=== PATIENT | female | born 1950 | race African-American/Black ===

== ENCOUNTER 2016-06-08 23:49 | Emergency (ER) | payer OTHER ==
[~2016-06-08] VITALS: Ht 162.6 cm; Wt 65.8 kg
[~2016-06-08 23:49] MED LIST: 1-ME1LIQ PO; ALBU.5I INH; ASPI81TA82 PO; ATOR10 PO; DIOV80TA4 PO; FLUT1SPR9 EACH NARE; LEVA750T9 PO; METF500; MONT10 PO; PRED20 PO; SYMB80AE INH
[2016-06-09 00:01] VITALS: BP 133/85; PULSE 83; RESP 18; TEMP 97.7; O2SAT 98
[2016-06-09] MEDS ORDERED: SYMB80AE INH (01:03)
[2016-06-09] MEDS ORDERED: ALBU.5I NEB (01:03)
[2016-06-09] MEDS ORDERED: MONT10TA4 PO (01:03)
[2016-06-09] MEDS ORDERED: FLUT1SPR5 EACH NARE (01:03)
[2016-06-09] MEDS ORDERED: VALS1TAB64 PO (01:03)
[2016-06-09] MEDS ORDERED: METF500T PO (01:03)
[2016-06-09] MEDS ORDERED: ASPI-110 PO (01:03)
[2016-06-09] MEDS ORDERED: ATOR10TA15 PO (01:07)
[2016-06-09 03:00] VITALS: BP 130/86
--- NOTE | 2016-06-09 03:15 | PD ---
HPI Chief Complaint: Facial Pain or Swelling Time Seen by Provider: 03:09 Travel History International Travel<30 days: No Contact w/Intl Traveler<30days: No Traveled to known affect area: No History of Present Illness HPI The patient complains of right sided parotid swelling since yesterday at 7 PM. She denies any fever or sore throat. She denies any dental pain. She is edentulous on the lower teeth. PFSH Past Medical History Hx Anticoagulant Therapy: Yes (ASA 81 MG) Asthma: Yes Heart Rhythm Problems: No Cardiac Catheterization: No High Cholesterol: Yes Chemotherapy: No Chest Pain: No Congestive Heart Failure: No COPD: No Cerebrovascular Accident: No Diabetes: Yes Patient Takes Glucophage: Yes Diminished Hearing: No Endocrine: Yes Gastrointestinal Disorders: Yes GERD: Yes Headaches: No Hiatal Hernia: No Hypertension: Yes Immune Disorder: No Respiratory: Yes (ASTHMA) Immunizations Current: Yes Radiation Therapy: No Seizures: No Sleep Apnea: No Ulcer: No Tetanus Vaccination: Unknown Influenza Vaccination: Yes ?: Not Menopausal: Yes : 1 Para: 1 Tubal Ligation: Yes Past Surgical History Abdominal Surgery: Yes (GALLBLADDER) Cardiac Surgery: No Section: Yes Cholecystectomy: Yes Coronary Artery Bypass Graft: No Ear Surgery: No Endocrine Surgery: No Genitourinary Surgery: No Gynecologic Surgery: Yes (C SECTION) Hysterectomy: Yes Neurologic Surgery: No Oral Surgery: No Thoracic Surgery: No Other Surgery: Yes (SINUS SURGERY) Family History Family Myocardial Infarction: Yes (brother passed from [place]) Social History Alcohol Use: No Tobacco Use: No Substance Use: No Allergies-Medications (Allergen,Severity, Reaction): Coded Allergies: Contrast Media (Verified Allergy, Severe, Rash, 06/09/16) Rocephin (Verified Allergy, Mild, RASH, 06/09/16) Reported Meds & Prescriptions Reported Meds & Active Scripts Active Reported Atorvastatin (Atorvastatin Calcium) 10 Mg Tab 10 Mg PO HS Aspirin 81 (Aspirin) 81 Mg Tabdr 81 Mg PO DAILY Albuterol Neb (Albuterol Sulfate) 2.5 Mg/0.5 Ml Neb 2.5 Mg NEB Q4HR NEB PRN Note: The Albuterol Sulfate Inhalation Solution is concentrated and must be diluted. Read complete instructions carefully before using. Symbicort Inh (Budesonide/Formoterol Fumarate) 80-4.5 Mcg/Act Aero 2 Puff INH Q12HR Flonase Allergy Relief Nasal [place] (Fluticasone Nasal [place]) 50 Mcg/Act [place] 50 Mcg EACH NARE BID PRN Metformin (Metformin HCl) 500 Mg Tab 500 Mg PO BIDPC With meals Montelukast (Montelukast Sodium) 10 Mg Tab 10 Mg PO HS Valsartan 80 Mg Tab 80 Mg PO DAILY Review of Systems Except as stated in HPI: all other systems reviewed are Neg Physical Exam Narrative GENERAL: Well-nourished, well-developed patient in minimal apparent distress with her right parotid swelling. Her vital signs are normal except for blood pressure 133/85. SKIN: Warm and dry. HEAD: Normocephalic. EYES: No scleral icterus. No injection or drainage. NECK: Supple, trachea midline. No JVD or lymphadenopathy. CARDIOVASCULAR: Regular rate and rhythm without murmurs, gallops, or rubs. RESPIRATORY: Breath sounds equal bilaterally. No accessory muscle use. GASTROINTESTINAL: Abdomen soft, non-tender, nondistended. MUSCULOSKELETAL: No cyanosis, or edema. BACK: Nontender without obvious deformity. No CVA tenderness. ENT: There is slight swelling of the right parotid gland and the patient states this is why she came in tonight. The left parotid gland is normal. The patient is edentulous and has no dental infections. The tympanic membranes are clear and the throat is clear without erythema, exudate or abscess. There is no swelling or stone palpated in Stensen's duct on the right. Data Data Last Documented VS Vital Signs Date Time Temp Pulse Resp B/P Pulse Ox O2 Delivery O2 Flow Rate FiO2 06/09/16 03:00 88 18 130/86 06/09/16 00:01 97.7 98 MDM Medical Decision Making Medical Screen Exam Complete: Yes Emergency Medical Condition: Yes Medical Record Reviewed: Yes Differential Diagnosis Dental infection, lymph node swelling, parotid duct obstruction, parotid infection, pharyngitis, parotid duct stone Narrative Course There is no evidence of infection either of the throat or parotid gland. There is no dental infection present. This appears to be a blockage of Stensen's duct. Plan: The patient should increase her liquid intake and take miranda to make her parotid gland secrete a lower viscosity fluid. If this does not work, she can follow-up with an lead vulcanizing operator. There is no evidence of any stone in the parotid duct. She is told return immediately should she have severe pain, redness and increased swelling of the parotid gland is this may be an infection. Physician Communication Physician Communication As we discussed, return immediately should you have increased swelling, pain and redness over the parotid gland on the right. This may mean an infection and you need immediate antibiotics. Diagnosis Primary Impression: Parotid duct obstruction Patient Instructions: General Instructions Departure Forms: Tests/Procedures Additional Instructions: Drink plenty of fluids, may use lemon drops to stimulate parotid gland. See your primary doctor for follow up. Come back if symptoms persist Med/Other Pt SpecificInfo: No Change to Meds Disposition: 01 DISCHARGE HOME Condition: Stable Jayden Colin MD Jun 09, 2016 03:15
== END 2016-06-09 03:05 | disposition home or self-care (01) ==
LOC: PHED 23:49
DX: K11.8 Other diseases of salivary glands (principal); E78.00 Pure hypercholesterolemia, unspecified; E11.9 Type 2 diabetes mellitus without complications; I10 Essential (primary) hypertension; J45.909 Unspecified asthma, uncomplicated; K21.9 Gastro-esophageal reflux disease without esophagitis; Z79.82 Long term (current) use of aspirin
CPT/HCPCS: 99283

== ENCOUNTER 2016-07-07 23:23 | Emergency (ER) | payer OTHER ==
[~2016-07-07] VITALS: Ht 162.6 cm; Wt 64.0 kg
[~2016-07-07 23:23] MED LIST changes: -1-ME1LIQ PO; -ALBU.5I INH; +ALBU.5I NEB; +ASPI-110 PO; -ASPI81TA82 PO; -ATOR10 PO; +ATOR10TA15 PO; -DIOV80TA4 PO; +FLUT1SPR5 EACH NARE; -FLUT1SPR9 EACH NARE; -LEVA750T9 PO; -METF500; +METF500T PO; -MONT10 PO; +MONT10TA4 PO; -PRED20 PO; +VALS1TAB64 PO
[2016-07-07 23:58] VITALS: BP 118/76; PULSE 104; RESP 18; TEMP 98.5; O2SAT 97
[2016-07-08 00:31] VITALS: BP 130/81; PULSE 104; RESP 20; TEMP 98.5; O2SAT 96
--- NOTE | 2016-07-08 01:00 | PD ---
HPI Chief Complaint: Cold / Flu Symptoms Time Seen by Provider: 00:59 Travel History International Travel<30 days: No Contact w/Intl Traveler<30days: No Traveled to known affect area: No History of Present Illness HPI The patient is a 65-year-old female that has had a mostly nonproductive cough and mild headache for the last 24 hours. She does not smoke. She has been generally weak. She denies myalgias. She denies any chest pain or shortness of breath. She denies any wheezing. PFSH Past Medical History Hx Anticoagulant Therapy: Yes (ASA 81 MG) Asthma: Yes Heart Rhythm Problems: No Cardiac Catheterization: No High Cholesterol: Yes Chemotherapy: No Chest Pain: No Congestive Heart Failure: No COPD: No Cerebrovascular Accident: No Diabetes: Yes Patient Takes Glucophage: Yes Diminished Hearing: No Endocrine: Yes Gastrointestinal Disorders: Yes GERD: Yes Headaches: No Hiatal Hernia: No Heparin Induced Thrombocytopen: No Hypertension: Yes Immune Disorder: No Implanted Vascular Access Dvce: No Respiratory: Yes (ASTHMA) Immunizations Current: Yes Radiation Therapy: No Seizures: No Sleep Apnea: No Ulcer: No Tetanus Vaccination: Unknown Influenza Vaccination: Yes ?: Not Menopausal: Yes : 1 Para: 1 Tubal Ligation: Yes Past Surgical History Abdominal Surgery: Yes (GALLBLADDER) Cardiac Surgery: No Section: Yes Cholecystectomy: Yes Coronary Artery Bypass Graft: No Ear Surgery: No Endocrine Surgery: No Genitourinary Surgery: No Gynecologic Surgery: Yes (C SECTION) Hysterectomy: Yes Neurologic Surgery: No Oral Surgery: No Thoracic Surgery: No Other Surgery: Yes (SINUS SURGERY) Family History Family Myocardial Infarction: Yes (brother passed from [place]) Social History Alcohol Use: No Tobacco Use: No Substance Use: No Allergies-Medications (Allergen,Severity, Reaction): Coded Allergies: Contrast Media (Verified Allergy, Severe, Rash, 06/09/16) Penicillin (Verified Allergy, Mild, Nausea/Vomiting, 07/08/16) Rocephin (Verified Allergy, Mild, RASH, 06/09/16) Reported Meds & Prescriptions Reported Meds & Active Scripts Active Reported Atorvastatin (Atorvastatin Calcium) 10 Mg Tab 10 Mg PO HS Aspirin 81 (Aspirin) 81 Mg Tabdr 81 Mg PO DAILY Albuterol Neb (Albuterol Sulfate) 2.5 Mg/0.5 Ml Neb 2.5 Mg NEB Q4HR NEB PRN Note: The Albuterol Sulfate Inhalation Solution is concentrated and must be diluted. Read complete instructions carefully before using. Symbicort Inh (Budesonide/Formoterol Fumarate) 80-4.5 Mcg/Act Aero 2 Puff INH Q12HR Flonase Nasal [place] (Fluticasone Nasal [place]) 50 Mcg/Act [place] 50 Mcg EACH NARE BID PRN Metformin (Metformin HCl) 500 Mg Tab 500 Mg PO BIDPC With meals Montelukast (Montelukast Sodium) 10 Mg Tab 10 Mg PO HS Valsartan 80 Mg Tab 80 Mg PO DAILY Review of Systems Except as stated in HPI: all other systems reviewed are Neg Physical Exam Narrative GENERAL: Well-nourished, well-developed patient in no respiratory distress but does have a persistent cough. Her vital signs show heart rate of 104 but are otherwise normal. SKIN: Warm and dry. HEAD: Normocephalic. EYES: No scleral icterus. No injection or drainage. NECK: Supple, trachea midline. No JVD or lymphadenopathy. CARDIOVASCULAR: Regular rate and rhythm without murmurs, gallops, or rubs. RESPIRATORY: Breath sounds equal bilaterally. No accessory muscle use. Lungs clear to auscultation bilaterally. GASTROINTESTINAL: Abdomen soft, non-tender, nondistended. MUSCULOSKELETAL: No cyanosis, or edema. BACK: Nontender without obvious deformity. No CVA tenderness. Data Data Last Documented VS Vital Signs Date Time Temp Pulse Resp B/P Pulse Ox O2 Delivery O2 Flow Rate FiO2 07/08/16 00:34 104 20 96 Room Air 07/08/16 00:31 98.5 130/81 Orders Albuterol-Ipratropium Neb (Duoneb Neb) (07/08/16 01:00) Influenzae A/B Antigen (07/08/16 01:01) [facility] Medical Decision Making Medical Screen Exam Complete: Yes Emergency Medical Condition: Yes Medical Record Reviewed: Yes Interpretation(s) The influenza A/B antigen is negative for flu a and flu B antigen. Differential Diagnosis Bronchitis, bronchospasm, flu syndrome, nonspecific viral syndrome Narrative Course The patient appears to have gotten some relief of the cough with the DuoNeb treatments. I cannot hear anything in her lungs but the cough is clearly better than it was when she came in. The patient herself states she did get some slight relief. Impression: Viral syndrome Plan: The patient will get DuoNeb refills for her nebulizer machine at home as well as a cough syrup. Diagnosis Primary Impression: Viral syndrome Med/Other Pt SpecificInfo: Prescription(s) given Scripts Ipratropium-Albuterol Neb (Duoneb)0.5-2.5 Mg/3 Ml Neb1 Nebule INH Q6HR NEB #60 NEBULE Ref 0 Prov:Jayden Colin MD 07/08/16 Hydrocodone-Guaifenesin Liq (Flowtuss Liq)2.5-200 Mg/5 Ml Soln5 Ml PO Q6H PRN ( COUGH AND COLD SYMPTOMS) #120 ML Ref 0 Prov:Jayden Colin MD 07/08/16 Disposition: 01 DISCHARGE HOME Condition: Stable Jayden Colin MD Jul 08, 2016 01:00
[2016-07-08] MEDS: RESP: ALBUTEROL 2.5 MG/IPRATROPIUM 0.5 MG NEB (SCH) INH ×2 (01:06→01:10)
[2016-07-08] MEDS ORDERED: IPRASOL INH (01:52)
[2016-07-08] MEDS ORDERED: HYDR1SOL20 PO (01:52)
[2016-07-08 02:00] VITALS: BP 121/77; PULSE 92; RESP 18; O2SAT 97
[2016-07-08] MEDS ORDERED: guaiFENesin/CODEINE SYRUP 200 MG/20 MG/10 ML CUP PO ONE (02:00)
== END 2016-07-08 02:25 | disposition home or self-care (01) ==
LOC: PHED 23:23
DX: B34.9 Viral infection, unspecified (principal); J45.909 Unspecified asthma, uncomplicated
CPT/HCPCS: 87804; 94640; 94664; 99283

== ENCOUNTER 2016-12-02 03:08 | Emergency (ER) | payer OTHER ==
[~2016-12-02] VITALS: Ht 162.6 cm; Wt 62.4 kg
[~2016-12-02 03:08] MED LIST changes: +HYDR1SOL20 PO; +IPRASOL INH
[2016-12-02 03:14] VITALS: BP 125/70; PULSE 113; RESP 18; TEMP 98.6; O2SAT 95
--- NOTE | 2016-12-02 03:42 | PD ---
HPI Chief Complaint: Cold / Flu Symptoms Time Seen by Provider: 03:35 Travel History International Travel<30 days: No Contact w/Intl Traveler<30days: No Traveled to known affect area: No History of Present Illness HPI The patient is a 66-year-old female that has a history of asthma and has been coughing since yesterday. She called her primary care physician who gave her 5 pills, apparently Zithromax but her cough is not getting better. Her states she usually gets nebulizer treatments and she gets better. They do not have DuoNeb to home and the would like us to write a prescription for the dual nebs. The patient does not smoke. She does not have any fever. PFSH Past Medical History Hx Anticoagulant Therapy: Yes (ASA 81 MG) Asthma: Yes Heart Rhythm Problems: No Cardiac Catheterization: No High Cholesterol: Yes Chemotherapy: No Chest Pain: No Congestive Heart Failure: No COPD: No Cerebrovascular Accident: No Diabetes: Yes Patient Takes Glucophage: Yes Diminished Hearing: No Endocrine: Yes Gastrointestinal Disorders: Yes GERD: Yes Headaches: No Hiatal Hernia: No Heparin Induced Thrombocytopen: No Hypertension: Yes Immune Disorder: No Implanted Vascular Access Dvce: No Respiratory: Yes (ASTHMA) Immunizations Current: Yes Radiation Therapy: No Seizures: No Sleep Apnea: No Ulcer: No Influenza Vaccination: Yes ?: Not Menopausal: Yes : 1 Para: 1 Tubal Ligation: Yes Past Surgical History Abdominal Surgery: Yes Cardiac Surgery: No Section: Yes Cholecystectomy: Yes Coronary Artery Bypass Graft: No Ear Surgery: No Endocrine Surgery: No Genitourinary Surgery: No Gynecologic Surgery: Yes (C SECTION) Hysterectomy: Yes Neurologic Surgery: No Oral Surgery: No Thoracic Surgery: No Other Surgery: Yes (SINUS SURGERY) Family History Family Myocardial Infarction: Yes (brother passed from [place]) Social History Alcohol Use: No Tobacco Use: No Substance Use: No Allergies-Medications (Allergen,Severity, Reaction): Coded Allergies: Contrast Media (Verified Allergy, Severe, Rash, 12/02/16) Penicillin (Verified Allergy, Mild, Nausea/Vomiting, 12/02/16) Rocephin (Verified Allergy, Mild, RASH, 12/02/16) Reported Meds & Prescriptions Reported Meds & Active Scripts Active Duoneb (Ipratropium-Albuterol Neb) 0.5-2.5 Mg/3 Ml Neb 1 Nebule INH Q6HR NEB Tussionex [place] Ext 12 HR Liq (Hydrocodone-Chlorpheniramine 12 HR Liq) 10- 8 Mg/5 Ml Susp 5 Ml PO Q12H PRN Duoneb (Ipratropium-Albuterol Neb) 0.5-2.5 Mg/3 Ml Neb 1 Nebule INH Q6HR NEB Reported Atorvastatin (Atorvastatin Calcium) 10 Mg Tab 10 Mg PO HS Aspirin 81 (Aspirin) 81 Mg Tabdr 81 Mg PO DAILY Albuterol Neb (Albuterol Sulfate) 2.5 Mg/0.5 Ml Neb 2.5 Mg NEB Q4HR NEB PRN Note: The Albuterol Sulfate Inhalation Solution is concentrated and must be diluted. Read complete instructions carefully before using. Symbicort Inh (Budesonide/Formoterol Fumarate) 80-4.5 Mcg/Act Aero 2 Puff INH Q12HR Flonase Nasal [place] (Fluticasone Nasal [place]) 50 Mcg/Act [place] 50 Mcg EACH NARE BID PRN Metformin (Metformin HCl) 500 Mg Tab 500 Mg PO BIDPC With meals Montelukast (Montelukast Sodium) 10 Mg Tab 10 Mg PO HS Valsartan 80 Mg Tab 80 Mg PO DAILY Review of Systems Except as stated in HPI: all other systems reviewed are Neg Physical Exam Narrative GENERAL: The patient is alert, oriented 3 and no respiratory distress. Her vital signs are heart rate 113 but otherwise normal. Oximetry is 95%. SKIN: Focused skin assessment warm/dry. HEAD: Atraumatic. Normocephalic. EYES: Pupils equal and round. No scleral icterus. No injection or drainage. ENT: No nasal bleeding or discharge. Mucous membranes pink and moist. NECK: Trachea midline. No JVD. CARDIOVASCULAR: Regular rate and rhythm. No murmur appreciated. RESPIRATORY: No accessory muscle use. Lungs are mostly clear but a few widely scattered wheezes are heard bilaterally.. Breath sounds equal bilaterally. GASTROINTESTINAL: Abdomen soft, non-tender, nondistended. Hepatic and splenic margins not palpable. MUSCULOSKELETAL: No obvious deformities. No clubbing. No cyanosis. No edema. NEUROLOGICAL: Awake and alert. No obvious cranial nerve deficits. Motor grossly within normal limits. Normal speech. PSYCHIATRIC: Appropriate mood and affect; insight and judgment normal. Data Data Last Documented VS Vital Signs Date Time Temp Pulse Resp B/P Pulse Ox O2 Delivery O2 Flow Rate FiO2 12/02/16 03:55 Aerosol Mask 12/02/16 03:36 110 97 12/02/16 03:14 98.6 18 125/70 Orders Ecg Monitoring (12/02/16 03:42) Albuterol-Ipratropium Neb (Duoneb Neb) (12/02/16 03:45) MDM Medical Decision Making Medical Screen Exam Complete: Yes Emergency Medical Condition: Yes Medical Record Reviewed: Yes Differential Diagnosis Viral upper respiratory infection, asthma, bronchitis, pneumoniaunlikely Narrative Course The patient likely has a viral upper respiratory infection. There was minimal bronchospasm initially and now the lungs are completely clear. The patient is more concerned about the cough and will be given a cough syrup. She will also be given a prescription for a nebulizer treatmentDuoNeb. She is to follow-up with her primary care physician next week. Diagnosis Primary Impression: Asthma exacerbation Additional Impression: Viral URI Additional Instructions: You had very little wheezing tonight and most of your symptoms appear to be from just the virus. Complete the antibiotics that your doctor gave you. If this is a virus antibiotics do not work. Scripts Ipratropium-Albuterol Neb (Duoneb)0.5-2.5 Mg/3 Ml Neb1 Nebule INH Q6HR NEB #30 NEBULE Ref 0 Prov:Jayden Colin MD 12/02/16 Hydrocodone-Chlorpheniramine 12 HR Liq (Tussionex [place] Ext 12 HR Liq)10- 8 Mg/5 Ml Susp5 Ml PO Q12H PRN (COUGH AND/OR COLD SYMPTOMS) #100 ML Ref 0 Prov:Jayden Colin MD 12/02/16 Disposition: 01 DISCHARGE HOME Condition: Stable Jayden Colin MD Dec 02, 2016 03:42
[2016-12-02] MEDS: RESP: ALBUTEROL 2.5 MG/IPRATROPIUM 0.5 MG NEB (SCH) INH (03:52)
[2016-12-02] MEDS ORDERED: IPRASOL INH (04:32)
[2016-12-02] MEDS ORDERED: TUSSSUS2 PO (04:32)
[2016-12-02 04:35] VITALS: BP 108/62; PULSE 114; RESP 18; O2SAT 97
== END 2016-12-02 04:47 | disposition home or self-care (01) ==
LOC: PHED 03:08
DX: J45.901 Unspecified asthma with (acute) exacerbation (principal); J06.9 Acute upper respiratory infection, unspecified; I10 Essential (primary) hypertension; E78.00 Pure hypercholesterolemia, unspecified; E11.9 Type 2 diabetes mellitus without complications; Z79.82 Long term (current) use of aspirin
CPT/HCPCS: 94640; 94664; 99284

== ENCOUNTER 2016-12-05 23:09 | Observation (INO) | payer OTHER ==
[~2016-12-05] VITALS: Ht 162.6 cm; Wt 64.1 kg
[~2016-12-05 23:09] MED LIST changes: -HYDR1SOL20 PO; +TUSSSUS2 PO
--- NOTE | 2016-12-05 23:27 | PD ---
HPI Chief Complaint: Respiratory Symptoms Time Seen by Provider: 23:15 Travel History International Travel<30 days: No Contact w/Intl Traveler<30days: No Traveled to known affect area: No History of Present Illness HPI 66-year-old female complains of coughing congestion chest pain and shortness of breath. Patient states that the symptoms started this morning. Patient states that she has nonproductive cough. Patient denies any fever chills. Patient has history of COPD. Patient has been using inhaler at home. Patient states that she started having substernal upper chest pain. Patient states that the chest pain is a combination of pressure pain and sharp pain. Patient denies any pain radiation. Patient denies palpitation. Patient states that she has nausea with the chest pain. Patient denies diaphoresis. Patient denies history of CAD. History patient has history hypertension, diabetes, dyslipidemia. Patient is a nonsmoker. Patient has family history of heart disease. On a scale of 1-10 the chest pain is an 8. PFSH Past Medical History Hx Anticoagulant Therapy: Yes (ASA 81 MG) Asthma: Yes Heart Rhythm Problems: No Cardiac Catheterization: No High Cholesterol: Yes Chemotherapy: No Chest Pain: No Congestive Heart Failure: No COPD: No Cerebrovascular Accident: No Diabetes: Yes Diminished Hearing: No Endocrine: Yes Gastrointestinal Disorders: Yes GERD: Yes Headaches: No Hiatal Hernia: No Heparin Induced Thrombocytopen: No Hypertension: Yes Immune Disorder: No Implanted Vascular Access Dvce: No Respiratory: Yes (ASTHMA) Immunizations Current: Yes Radiation Therapy: No Seizures: No Sleep Apnea: No Ulcer: No Menopausal: Yes : 1 Para: 1 Tubal Ligation: Yes Past Surgical History Abdominal Surgery: Yes Cardiac Surgery: No Section: Yes Cholecystectomy: Yes Coronary Artery Bypass Graft: No Ear Surgery: No Endocrine Surgery: No Genitourinary Surgery: No Gynecologic Surgery: Yes (C SECTION) Hysterectomy: Yes Neurologic Surgery: No Oral Surgery: No Thoracic Surgery: No Other Surgery: Yes (SINUS SURGERY) Social History Alcohol Use: No Tobacco Use: No Substance Use: No Allergies-Medications (Allergen,Severity, Reaction): Coded Allergies: Contrast Media (Verified Allergy, Severe, Rash, 12/06/16) Penicillin (Verified Allergy, Mild, Nausea/Vomiting, 12/06/16) Rocephin (Verified Allergy, Mild, RASH, 12/06/16) Reported Meds & Prescriptions Reported Meds & Active Scripts Active Duoneb (Ipratropium-Albuterol Neb) 0.5-2.5 Mg/3 Ml Neb 1 Nebule INH Q6HR NEB Duoneb (Ipratropium-Albuterol Neb) 0.5-2.5 Mg/3 Ml Neb 1 Nebule INH Q6HR NEB Reported Azithromycin 250 Mg Tab 250 Mg PO DAILY Benzonatate 100 Mg Cap 100 Mg PO TID PRN Atorvastatin (Atorvastatin Calcium) 10 Mg Tab 10 Mg PO HS Aspirin 81 (Aspirin) 81 Mg Tabdr 81 Mg PO DAILY Albuterol Neb (Albuterol Sulfate) 2.5 Mg/0.5 Ml Neb 2.5 Mg NEB Q4HR NEB PRN Note: The Albuterol Sulfate Inhalation Solution is concentrated and must be diluted. Read complete instructions carefully before using. Symbicort Inh (Budesonide/Formoterol Fumarate) 80-4.5 Mcg/Act Aero 2 Puff INH Q12HR Flonase Nasal [place] (Fluticasone Nasal [place]) 50 Mcg/Act [place] 50 Mcg EACH NARE BID PRN Metformin (Metformin HCl) 500 Mg Tab 500 Mg PO BIDPC With meals Montelukast (Montelukast Sodium) 10 Mg Tab 10 Mg PO HS Valsartan 80 Mg Tab 80 Mg PO DAILY Review of Systems General / Constitutional: No: Fever Eyes: No: Visual changes HENT: No: Headaches Cardiovascular: Positive: Chest Pain or Discomfort Respiratory: Positive: Cough, Shortness of Breath Gastrointestinal: No: Abdominal Pain Genitourinary: No: Dysuria Musculoskeletal: No: Pain Skin: No Rash Neurologic: No: Weakness Psychiatric: No: Depression Endocrine: No: Polydipsia Hematologic/Lymphatic: No: Easy Bruising Physical Exam Narrative GENERAL: Well-nourished, well-developed patient. SKIN: Focused skin assessment warm/dry. HEAD: Normocephalic. EYES: No scleral icterus. No injection or drainage. NECK: Supple, trachea midline. No JVD or lymphadenopathy. CARDIOVASCULAR: Regular rate and rhythm without murmurs, gallops, or rubs. RESPIRATORY: Breath sounds equal bilaterally. No accessory muscle use. Mild expiratory wheezes. Few rhonchi at the bases. GASTROINTESTINAL: Abdomen soft, non-tender, nondistended. MUSCULOSKELETAL: No cyanosis, or edema. BACK: Nontender without obvious deformity. No CVA tenderness. Neurologic exam normal. Data Data Last Documented VS Vital Signs Date Time Temp Pulse Resp B/P Pulse Ox O2 Delivery O2 Flow Rate FiO2 12/06/16 00:58 108 20 97/61 96 12/06/16 00:34 99.7 12/06/16 00:00 2 12/05/16 23:40 Nasal Cannula Orders Electrocardiogram (12/05/16 23:16) Complete Blood Count With Diff (12/05/16 23:16) Comprehensive Metabolic Panel (12/05/16 23:16) Creatine Kinase (Cpk) (12/05/16 23:16) Troponin I (12/05/16 23:16) B-Type Natriuretic Peptide (12/05/16 23:16) Prothrombin Time / Inr (Pt) (12/05/16 23:16) Act Partial Throm Time (Ptt) (12/05/16 23:16) Influenzae A/B Antigen (12/05/16 23:16) Chest, Single Ap (12/05/16 23:16) Iv Access Insert/Monitor (12/05/16 23:16) Ecg Monitoring (12/05/16 23:16) Oxygen Administration (12/05/16 23:16) Oximetry (12/05/16 23:16) Sodium Chloride 0.9% Flush (Ns Flush) (12/05/16 23:30) Albuterol-Ipratropium Neb (Duoneb Neb) (12/05/16 23:30) Morphine Inj (Morphine Inj) (12/05/16 23:30) Ondansetron Inj (Zofran Inj) (12/05/16 23:30) Methylprednisolone So Succ Inj (Solumedr (12/05/16 23:30) Labs Laboratory Tests Test 12/05/16 23:25 White Blood Count 12.7 TH/MM3 Red Blood Count 4.14 MIL/MM3 Hemoglobin 12.9 GM/DL Hematocrit 38.2 % Mean Corpuscular Volume 92.2 FL Mean Corpuscular Hemoglobin 31.0 PG Mean Corpuscular Hemoglobin 33.7 % Concent Red Cell Distribution Width 11.8 % Platelet Count 358 TH/MM3 Mean Platelet Volume 7.7 FL Neutrophils (%) (Auto) 65.1 % Lymphocytes (%) (Auto) 24.0 % Monocytes (%) (Auto) 4.6 % Eosinophils (%) (Auto) 5.5 % Basophils (%) (Auto) 0.8 % Neutrophils # (Auto) 8.3 TH/MM3 Lymphocytes # (Auto) 3.0 TH/MM3 Monocytes # (Auto) 0.6 TH/MM3 Eosinophils # (Auto) 0.7 TH/MM3 Basophils # (Auto) 0.1 TH/MM3 CBC Comment DIFF FINAL Differential Comment Prothrombin Time 11.9 SEC Prothromb Time International 1.1 RATIO Ratio Activated Partial 23.3 SEC Thromboplast Time Sodium Level 142 MEQ/L Potassium Level 3.9 MEQ/L Chloride Level 108 MEQ/L Carbon Dioxide Level 21.1 MEQ/L Anion Gap 13 MEQ/L Blood Urea Nitrogen 31 MG/DL Creatinine 1.70 MG/DL Estimat Glomerular Filtration 36 ML/MIN Rate Random Glucose 116 MG/DL Calcium Level 9.2 MG/DL Total Bilirubin 1.0 MG/DL Aspartate Amino Transf 29 U/L (AST/SGOT) Alanine Aminotransferase 16 U/L (ALT/SGPT) Alkaline Phosphatase 95 U/L Total Creatine Kinase 161 U/L Troponin I 0.03 NG/ML B-Type Natriuretic Peptide 79 PG/ML Total Protein 8.1 GM/DL Albumin 3.5 GM/DL [facility] Medical Decision Making Medical Screen Exam Complete: Yes Emergency Medical Condition: Yes Interpretation(s) 12:59 AM. EKG shows sinus tachycardia with short [place] interval. Left bundle- branch block. Rate 134. Unchanged from previous EKGs. Chest x-ray shows no acute consolidation. CBC WBC 12.7. Normal differential. BUN 31. Creatinine 1.7. GFR 36. Cardiac enzymes are normal. BNP 79. Differential Diagnosis Differential diagnosis including acute exacerbation COPD, angina, LA, PE, pneumothorax, pneumonia. Narrative Course 66-year-old female with chest pain and shortness of breath coughing congestion. History of COPD. Albuterol with Atrovent unit dose treatment 2. Solu- Medrol 125 mg IV. Morphine 2 mg IV. Zofran 4 mg IV. Zithromax 500 mg IV given. Diagnosis Primary Impression: COPD with acute exacerbation Additional Impression: CHEST PAIN, UNSPECIFIED Admitting Information Admitting Physician Requests: Observation Jesse Perez MD Dec 05, 2016 23:27
[2016-12-05] MEDS ORDERED: methylPREDNISolone SOD SUCC 125 MG/2 ML VIAL IVP ONE (23:30)
[2016-12-05] MEDS ORDERED: ONDANSETRON HCL 4 MG/2 ML VIAL IV PUSH ONE (23:30)
[2016-12-05] MEDS ORDERED: MORPHINE SULFATE 4 MG/ML INJ IV PUSH ONE (23:30)
[2016-12-05] MEDS ORDERED: SODIUM CHLORIDE 0.9% FLUSH 10 ML FLUSH IVF PRN (23:30)
[2016-12-05] MEDS ORDERED: RESP: ALBUTEROL 2.5 MG/IPRATROPIUM 0.5 MG NEB (SCH) INH ONE (23:30)
[2016-12-05 23:33] LABS: AUTOMATED NEUTROPHIL # 8.3 TH/MM3 (1.8-7.7); BASOPHIL # 0.1 TH/MM3 (0-0.2); BASOPHIL % 0.8 % (0.0-2.0); EOSINOPHIL # 0.7 TH/MM3 (0-0.4); EOSINOPHIL % 5.5 % (0.0-4.0); HEMATOCRIT 38.2 % (35.0-46.0); HEMO FLAGS DIFF FINAL; MEAN CELL VOLUME 92.2 FL (80.0-100.0); MEAN CORPUSCULAR HGB CONC 33.7 % (32.0-36.0); MONO % 4.6 % (0.0-8.0); NEUT % 65.1 % (16.0-70.0); PLATELET COUNT 358 TH/MM3 (150-450); RED BLOOD COUNT 4.14 MIL/MM3 (4.00-5.30); RED CELL DISTRIBUTION WIDTH 11.8 % (11.6-17.2); WHITE BLOOD COUNT 12.7 TH/MM3 (4.0-11.0)
[2016-12-05 23:40] VITALS: BP 106/60; PULSE 114; RESP 20; O2SAT 98
[2016-12-05 23:45] VITALS: BP 84/58; PULSE 122; RESP 28; TEMP 99.7
[2016-12-05 23:48] LABS: CHLORIDE 108 MEQ/L (98-107); SODIUM (NA) 142 MEQ/L (136-145)
--- NOTE | 2016-12-05 23:48 | RADRPT ---
EXAM DATE/TIME: 12/05/2016 23:29 [facility] COMPARISON: CHEST SINGLE AP, September 24, 2015, 8:57. INDICATIONS : Chest pain. MEDICAL HISTORY : asthma. SURGICAL HISTORY : ENCOUNTER: Initial ACUITY: 1 day PAIN SCORE: 10/10 LOCATION: Bilateral chest FINDINGS: Portable AP view of the chest demonstrates a normal-sized cardiac silhouette. Examination quality is degraded by motion artifact. There is persistent bibasilar air space opacity. No pleural effusion or pneumothorax is visualized. CONCLUSION: Chronic interstitial changes at the lung bases bilaterally. No acute finding is identified. Gustavo Saleh MD on December 05, 2016 at 23:45 Board Certified Radiologist. This report was verified electronically.
[2016-12-05 23:52] LABS: ANION GAP 13 MEQ/L (5-15); BICARBONATE 21.1 MEQ/L (21.0-32.0); BLOOD UREA NITROGEN 31 MG/DL (7-18)
[2016-12-05 23:54] LABS: APTT (PATIENT) 23.3 SEC (24.3-30.1); INTERNATIONAL NORMALIZED RATIO 1.1 RATIO; PROTHROMBIN TIME - PATIENT 11.9 SEC (9.8-11.6)
[2016-12-05 23:55] LABS: ALT (GPT) 16 U/L (10-53); AST (GOT) 29 U/L (15-37); GLOMERULAR FILTRATION RATE 36 ML/MIN (>89)
[2016-12-05 23:58] LABS: ALKALINE PHOSPHATASE 95 U/L (45-117); CREATINE KINASE 161 U/L (26-192)
[2016-12-06] VITALS (14 sets, daily range): BP systolic 97–131; BP diastolic 59–74; PULSE 89–111; RESP 18–22; TEMP 96.8–99.7; O2SAT 93–98
[2016-12-06 00:15] LABS: POTASSIUM 3.9 MEQ/L (3.5-5.1)
[2016-12-06] MEDS ORDERED: BENZ1CAP8 PO (00:46)
[2016-12-06] MEDS ORDERED: AZIT250T3 PO (00:46)
[2016-12-06] MEDS ORDERED: SODIUM CHLORIDE 0.9% FLUSH 10 ML FLUSH IVF PRN (01:15)
[2016-12-06] MEDS ORDERED: RESP: ALBUTEROL 2.5 MG/IPRATROPIUM 0.5 MG NEB (SCH) INH ONE (01:15)
[2016-12-06] MEDS ORDERED: NALOXONE HCL 0.4 MG/ML AMP IV PRN (01:30)
[2016-12-06] MEDS ORDERED: RESP: ALBUTEROL 2.5 MG/IPRATROPIUM 0.5 MG NEB (PRN) NEB (01:45)
[2016-12-06] MEDS ORDERED: ACETAMINOPHEN/CODEINE ELIX 120 MG/12 MG/5 ML CUP PO ONE (02:00)
[2016-12-06] MEDS ORDERED: AZITHROMYCIN INJ 500 MG in SODIUM CHLOR 0.9% 250 ML INJ 250 ML IV ONE (03:00)
[2016-12-06] MEDS: RESP: ALBUTEROL 2.5 MG/IPRATROPIUM 0.5 MG NEB (SCH) NEB ×4 (03:39→21:08)
[2016-12-06] MEDS: SODIUM CHLORIDE 0.9% FLUSH 10 ML FLUSH IV FLUSH PRN ×2 (03:54→05:48)
[2016-12-06] MEDS ORDERED: methylPREDNISolone SOD SUCC 40 MG/1 ML VIAL IV PUSH SCH (06:00)
[2016-12-06] MEDS ORDERED: ENALAPRILAT 1.25 MG/ML VIAL IV PUSH PRN (08:15)
[2016-12-06] MEDS ORDERED: GLUCAGON 1 MG/ML VIAL OTHER PRN (08:30)
[2016-12-06] MEDS ORDERED: DEXTROSE 50% IN WATER 50 ML VIAL(D50) IV PUSH PRN (08:30)
--- NOTE | 2016-12-06 08:50 | HHI.HP ---
[facility] Service [facility] Primary Care Physician Non-Staff Admission Diagnosis acute exacerbation COPD. Chest pain Diagnoses: Chief Complaint: Cough Travel History International Travel<30 Days: No Contact w/Intl Traveler <30 Da: No Traveled to Known Affected Are: No History of Present Illness The patient is a 66-year-old female with a past medical history of asthma who is presenting to the hospital with a severe cough. She says she has had a bad cough that has been getting worse. She says she came to the emergency department a few days ago and was given a cough medication, however, she says none of the pharmacies she went to had the medication in stock. She said she had a coughing pill that she took at home which did not work. She has also been taking azithromycin that her primary care doctor prescribed her recently. She has been coughing up yellow mucus. She denies any fever. She does endorse chest pain associated with her coughing. She mentions she has been vomiting as well. She says she sees her redye hand every few months and is next due to see him in December. She says she has been taking nebulizer treatments at home which has been helping. She currently feels much improved. She says she does not have much of an appetite and has not been drinking much fluids. She says her blood pressure has been running low recently. She denies any diarrhea, constipation or urinary symptoms. Review of Systems Except as stated in HPI: all other systems reviewed are Neg Past Family Social History Past Medical History Asthma DM HLP HTN Past Surgical History Cholecystectomy Allergies: Coded Allergies: Contrast Media (Verified Allergy, Severe, Rash, 12/06/16) Penicillin (Verified Allergy, Mild, Nausea/Vomiting, 12/06/16) Rocephin (Verified Allergy, Mild, RASH, 12/06/16) Active Ordered Medications Current Medications Medications (Trade) Dose Ordered Sig/Harvey Route Start Time Stop Time Status Last Admin (NS Flush) 2 ml UNSCH PRN IV FLUSH 12/06/16 01:30 12/06/16 05:48 (NS Flush) 2 ml BID IV FLUSH 12/06/16 09:00 (Narcan Inj) 0.4 mg UNSCH PRN IV 12/06/16 01:30 (Protonix) 40 mg DAILY PO 12/06/16 09:00 (Ecotrin Ec) 81 mg DAILY PO 12/06/16 09:00 (Lipitor) 10 mg HS PO 12/06/16 21:00 (Symbicort 80-4.5 Mcg Inh) 2 puff Q12HR INH 12/06/16 09:00 (Singulair) 10 mg HS PO 12/06/16 21:00 Enalaprilat 1.25 mg 1.25 mg Q6H PRN IV PUSH 12/06/16 08:15 (1/2 NS 1000 ml Inj) 1,000 ml @ 100 mls/hr Q10H IV 12/06/16 08:15 (D50w (Vial) Inj) 25 ml UNSCH PRN IV PUSH 12/06/16 08:30 (Glucagon Inj) 1 mg UNSCH PRN OTHER 12/06/16 08:30 (Robitussin Ac 200-20 Mg/10 ml Liq) 10 ml Q4H PRN PO 12/06/16 08:45 UNV Family History Hypertension Social History The patient does not drink, smoke or use illicit substances. Physical Exam Vital Signs Vital Signs Date Time Temp Pulse Resp B/P Pulse Ox O2 Delivery O2 Flow Rate FiO2 12/06/16 03:45 99 12/06/16 03:45 96 Nasal Cannula 2.00 12/06/16 02:41 105 20 99/59 98 Nasal Cannula 2 12/06/16 01:37 106 20 100/60 97 Nasal Cannula 2 12/06/16 01:22 97 Nasal Cannula 2.00 12/06/16 00:58 108 20 97/61 96 12/06/16 00:34 99.7 111 20 131/67 96 12/06/16 00:00 113 19 95 2 12/05/16 23:45 99.7 122 28 84/58 12/05/16 23:40 Nasal Cannula 2 12/05/16 23:40 114 20 106/60 98 Physical Exam GENERAL: This is a well-nourished, well-developed patient, in no apparent distress. SKIN: No rashes, ecchymoses or lesions. Cool and dry. HEAD: Atraumatic. Normocephalic. No temporal or scalp tenderness. EYES: Pupils equal round and reactive. Extraocular motions intact. No scleral icterus. No injection or drainage. ENT: Nose without bleeding, purulent drainage or septal hematoma. Throat without erythema, tonsillar hypertrophy or exudate. Uvula midline. Airway patent. NECK: Trachea midline. No JVD or lymphadenopathy. Supple, nontender, no meningeal signs. CARDIOVASCULAR: Tachycardic without murmurs, gallops, or rubs. RESPIRATORY: Clear to auscultation. Breath sounds equal bilaterally. No wheezes , rales, or rhonchi. GASTROINTESTINAL: Abdomen soft, non-tender, nondistended. No hepato-splenomegaly , or palpable masses. No guarding. MUSCULOSKELETAL: Extremities without clubbing, cyanosis, or edema. No joint tenderness, effusion, or edema noted. NEUROLOGICAL: Awake and alert. Cranial nerves II through XII intact. Motor and sensory grossly within normal limits. Five out of 5 muscle strength in all muscle groups. Normal speech. PSYCH: Slightly flattened affect. Laboratory Laboratory Tests Test 12/05/16 12/06/16 23:25 05:15 White Blood Count 12.7 Red Blood Count 4.14 Hemoglobin 12.9 Hematocrit 38.2 Mean Corpuscular Volume 92.2 Mean Corpuscular Hemoglobin 31.0 Mean Corpuscular Hemoglobin 33.7 Concent Red Cell Distribution Width 11.8 Platelet Count 358 Mean Platelet Volume 7.7 Neutrophils (%) (Auto) 65.1 Lymphocytes (%) (Auto) 24.0 Monocytes (%) (Auto) 4.6 Eosinophils (%) (Auto) 5.5 Basophils (%) (Auto) 0.8 Neutrophils # (Auto) 8.3 Lymphocytes # (Auto) 3.0 Monocytes # (Auto) 0.6 Eosinophils # (Auto) 0.7 Basophils # (Auto) 0.1 CBC Comment DIFF FINAL Differential Comment Prothrombin Time 11.9 Prothromb Time International 1.1 Ratio Activated Partial 23.3 Thromboplast Time Sodium Level 142 Potassium Level 3.9 Chloride Level 108 Carbon Dioxide Level 21.1 Anion Gap 13 Blood Urea Nitrogen 31 Creatinine 1.70 Estimat Glomerular Filtration 36 Rate Random Glucose 116 Calcium Level 9.2 Total Bilirubin 1.0 Aspartate Amino Transf 29 (AST/SGOT) Alanine Aminotransferase 16 (ALT/SGPT) Alkaline Phosphatase 95 Total Creatine Kinase 161 143 Troponin I 0.03 0.03 B-Type Natriuretic Peptide 79 Total Protein 8.1 Albumin 3.5 Date/Time Procedure Status Source Growth 12/05/16 23:45 Influenza Types A,B Antigen (DARIO) - Final Complete Nasal Washing NEGATIVE FOR FLU A AND B ANTIGEN.... Result Diagram: 12/05/16232412/05/162324 Imaging Last Impressions Chest X-Ray 12/05/166 Signed Impressions: Service Date/Time: Monday, December 05, 2016 23:29 - CONCLUSION: Chronic interstitial changes at the lung bases bilaterally. No acute finding is identified. Gustavo Saleh MD Assessment and Plan Assessment and Plan Acute on chronic bronchitis The patient complains of severe coughing fits associated with vomiting. She also endorses chest pain secondary to coughing too frequently. She has a history of asthma and follows with a redye hand regularly. Chest x-ray with : Chronic interstitial changes at the lung bases bilaterally; No acute finding is identified. She has a mild leukocytosis. - Robitussin-AC as needed for cough suppression. - Oxygen and nebs as needed. Standing nebs also ordered. - Incentive spirometry. - Sputum culture and Gram stain. - IV doxycycline. - encourage ambulation. HTN The patient has been on the hypotensive side. - DC valsartan. - clonidine as needed. - IVFs. Acute renal insufficiency Creatinine is quite elevated. The patient endorses decreased by mouth intake. She is also on valsartan. - DC valsartan. - IV fluids. - avoid nephrotoxic agents. DM On metformin as an outpt. - hold metformin. - insulin sliding scale. PPx: Heparin Code Status Full Discussed Condition With Xavier Emmanuel DO Dec 06, 2016 08:50
[2016-12-06] MEDS ORDERED: cloNIDine HCL 0.1 MG TAB PO PRN (09:00)
[2016-12-06] MEDS: BUDESONIDE-FORMOTEROL 80/4.5 MCG INHALER INH SCH ×2 (09:32→21:21)
[2016-12-06] MEDS: SODIUM CHLOR 0.45% 1000 ML INJ 1,000 ML IV SCH ×2 (09:32→17:33)
[2016-12-06] MEDS: DOXYCYCLINE INJ 100 MG in SODIUM CHLORIDE 0.9% INJ 100 ML IV SCH ×2 (09:33→21:23)
[2016-12-06] MEDS: PANTOPRAZOLE SOD 40 MG DELAYED RELEASE TAB PO SCH (09:33)
[2016-12-06] MEDS: SODIUM CHLORIDE 0.9% FLUSH 10 ML FLUSH IV FLUSH SCH ×2 (09:33→21:22)
[2016-12-06] MEDS: ASPIRIN EC 81 MG TABEC PO SCH (09:39)
[2016-12-06 11:43] LABS: CREATINE KINASE 164 U/L (26-192)
[2016-12-06] MEDS: INSULIN ASPART SUPPLEMENTAL SCALE SQ SCH ×3 (11:52→21:26)
[2016-12-06] MEDS: HEPARIN SODIUM - SQ 10,000 UNITS/ML VIAL SQ SCH ×2 (14:26→21:23)
[2016-12-06] MEDS: guaiFENesin/CODEINE SYRUP 200 MG/20 MG/10 ML CUP PO PRN ×3 (14:26→22:12)
[2016-12-06] MEDS: methylPREDNISolone SOD SUCC 40 MG/1 ML VIAL IV PUSH SCH ×2 (16:39→21:23)
--- NOTE | 2016-12-06 18:42 | RADRPT ---
EXAM DATE/TIME: 12/06/2016 16:34 [facility] COMPARISON: CHEST SINGLE AP, December 05, 2016, 23:29. INDICATIONS : Difficulty breathing MEDICAL HISTORY : Asthma SURGICAL HISTORY : None. ENCOUNTER: Initial ACUITY: 1 day PAIN SCORE: 0/10 LOCATION: Bilateral chest FINDINGS: The heart is stable. Mild increased perihilar interstitial markings are noted consistent with pulmon rebecca vascular congestion versus interstitial pneumonitis. CONCLUSION: Mild increased perihilar interstitial markings consistent with mild pulmonary vascula r congestion versus viral pneumonitis. Clinical correlation is recommended. Delvis Asif MD on December 06, 2016 at 18:35 Board Certified Radiologist. This report was verified electronically.
--- NOTE | 2016-12-06 20:08 | EKG ---
Date Performed: 12/06/2016 Time Performed: 11:06:15 PTAGE: 66 years EKG: Sinus rhythm POSSIBLE LEFT ATRIAL ENLARGEMENT LEFT BUNDLE BRANCH BLOCK ABNORMAL ECG PREVIOUS TRACING : 12/06/2016 05.12 Compared to prior tracing no significant change DOCTOR: Giovanni Whitfield Interpretating Date/Time 12/06/2016 20:07:51
--- NOTE | 2016-12-06 20:37 | EKG ---
Date Performed: 12/06/2016 Time Performed: 05:12:41 PTAGE: 66 years EKG: Sinus rhythm LEFT BUNDLE BRANCH BLOCK ABNORMAL ECG PREVIOUS TRACING : 12/05/2016 23.16 Compared to prior tracing no significant change DOCTOR: Giovanni Whitfield Interpretating Date/Time 12/06/2016 20:36:37
--- NOTE | 2016-12-06 20:54 | EKG ---
Date Performed: 12/05/2016 Time Performed: 23:16:57 PTAGE: 66 years EKG: SINUS TACHYCARDIA WITH SHORT UT INTERVAL LEFT BUNDLE BRANCH BLOCK ABNORMAL ECG PREVIOUS TRACING : 08/23/2015 20.43 Compared to prior tracing no significant change DOCTOR: Giovanni Whitfield Interpretating Date/Time 12/06/2016 20:52:54
[2016-12-06] MEDS: ATORVASTATIN 10 MG TAB PO SCH (21:22)
[2016-12-06] MEDS: MONTELUKAST SODIUM 10 MG TAB PO SCH (21:22)
[2016-12-07] VITALS (10 sets, daily range): BP systolic 112–133; BP diastolic 72–86; PULSE 80–111; RESP 15–24; TEMP 96–97.8; O2SAT 94–98
[2016-12-07] MEDS: RESP: ALBUTEROL 2.5 MG/IPRATROPIUM 0.5 MG NEB (SCH) NEB ×4 (03:31→21:31)
[2016-12-07] MEDS: SODIUM CHLOR 0.45% 1000 ML INJ 1,000 ML IV SCH (04:35)
[2016-12-07] MEDS: guaiFENesin/CODEINE SYRUP 200 MG/20 MG/10 ML CUP PO PRN ×4 (04:37→19:52)
[2016-12-07] MEDS: methylPREDNISolone SOD SUCC 40 MG/1 ML VIAL IV PUSH SCH (06:25)
[2016-12-07] MEDS: INSULIN ASPART SUPPLEMENTAL SCALE SQ SCH ×4 (06:25→21:15)
[2016-12-07] MEDS: SODIUM CHLORIDE 0.9% FLUSH 10 ML FLUSH IV FLUSH PRN (06:25)
[2016-12-07] MEDS: HEPARIN SODIUM - SQ 10,000 UNITS/ML VIAL SQ SCH ×3 (06:26→21:09)
[2016-12-07 06:51] LABS: AUTOMATED NEUTROPHIL # 3.4 TH/MM3 (1.8-7.7); BASOPHIL % 0.1 % (0.0-2.0); EOSINOPHIL % 0.1 % (0.0-4.0); HEMATOCRIT 33.2 % (35.0-46.0); HEMO FLAGS DIFF FINAL; LYMPH % 16.3 % (9.0-44.0); LYMPHOCYTE # 0.7 TH/MM3 (1.0-4.8); MEAN CELL VOLUME 92.8 FL (80.0-100.0); MEAN CORPUSCULAR HEMOGLOBIN 30.7 PG (27.0-34.0); MEAN CORPUSCULAR HGB CONC 33.1 % (32.0-36.0); MONO % 5.6 % (0.0-8.0); NEUT % 77.9 % (16.0-70.0); PLATELET COUNT 288 TH/MM3 (150-450); RED BLOOD COUNT 3.58 MIL/MM3 (4.00-5.30); RED CELL DISTRIBUTION WIDTH 11.9 % (11.6-17.2); WHITE BLOOD COUNT 4.3 TH/MM3 (4.0-11.0)
[2016-12-07 06:57] LABS: POTASSIUM 3.5 MEQ/L (3.5-5.1)
[2016-12-07 07:00] LABS: BICARBONATE 26.1 MEQ/L (21.0-32.0)
[2016-12-07] MEDS ORDERED: diphenhydrAMINE HCL 25 MG CAP PO PRN (09:00)
[2016-12-07] MEDS: SODIUM CHLORIDE 0.9% FLUSH 10 ML FLUSH IV FLUSH SCH ×2 (09:00→21:09)
--- NOTE | 2016-12-07 09:07 | HHI.PR ---
Subjective Remarks The patient says that she feels better today. She says her cough is improved and her breathing is also improved. She has been eating and having bowel movements. She has been ambulating. She does complain of a rash on her hands and her feet and she says that it is itchy. No other acute complaints. Looking forward to going home soon. Objective Vitals Vital Signs Date Time Temp Pulse Resp B/P Pulse Ox O2 Delivery O2 Flow Rate FiO2 12/07/16 04:00 96.0 111 24 133/86 98 12/07/16 00:00 97.2 109 20 123/72 98 12/06/16 21:10 94 Nasal Cannula 2.00 12/06/16 20:00 96.8 106 20 108/74 93 12/06/16 20:00 105 12/06/16 20:00 93 Nasal Cannula 2.00 12/06/16 16:00 97.1 97 18 121/68 97 12/06/16 15:50 96.8 110 22 109/68 96 12/06/16 15:28 93 Nasal Cannula 2.00 12/06/16 12:00 97.1 97 18 121/68 97 12/06/16 10:05 98 Nasal Cannula 2.00 12/06/16 09:30 Nasal Cannula 2.00 I/O 12/06/16 12/06/16 12/06/16 12/07/16 12/07/16 12/07/16 06:59 14:59 22:59 06:59 14:59 22:59 Intake Total 1231 ml 1177 ml 1598 ml Balance 1231 ml 1177 ml 1598 ml Intake Oral 750 ml 480 ml 720 ml IV Total 481 ml 697 ml 878 ml # Voids 3 6 4 # Bowel Movements 0 0 0 Result Diagram: 12/07/16 0622 12/07/16 0622 Imaging Last Impressions Chest X-Ray 12/06/16 0000 Signed Impressions: Service Date/Time: Tuesday, December 06, 2016 16:34 - CONCLUSION: Mild increased perihilar interstitial markings consistent with mild pulmonary vascular congestion versus viral pneumonitis. Clinical correlation is recommended. Delvis Asif MD Objective Remarks GENERAL: This is a well-nourished, well-developed patient, in no apparent distress. SKIN: Mild macular eruption on hands and feet. HEAD: Atraumatic. Normocephalic. No temporal or scalp tenderness. EYES: Pupils equal round and reactive. Extraocular motions intact. No scleral icterus. No injection or drainage. ENT: Nose without bleeding, purulent drainage or septal hematoma. Throat without erythema, tonsillar hypertrophy or exudate. Uvula midline. Airway patent. NECK: Trachea midline. No JVD or lymphadenopathy. Supple, nontender, no meningeal signs. CARDIOVASCULAR: Tachycardic without murmurs, gallops, or rubs. RESPIRATORY: Clear to auscultation. Breath sounds equal bilaterally. No wheezes , rales, or rhonchi. GASTROINTESTINAL: Abdomen soft, non-tender, nondistended. No hepato-splenomegaly , or palpable masses. No guarding. MUSCULOSKELETAL: Extremities without clubbing, cyanosis, or edema. No joint tenderness, effusion, or edema noted. NEUROLOGICAL: Awake and alert. Cranial nerves II through XII intact. Motor and sensory grossly within normal limits. Five out of 5 muscle strength in all muscle groups. Normal speech. PSYCH: Mood and affect appropriate. Medications and IVs Current Medications Medications (Trade) Dose Ordered Sig/Harvey Route Start Time Stop Time Status Last Admin (NS Flush) 2 ml UNSCH PRN IV FLUSH 12/06/16 01:30 12/07/16 06:25 (NS Flush) 2 ml BID IV FLUSH 12/06/16 09:00 12/06/16 21:22 (Narcan Inj) 0.4 mg UNSCH PRN IV 12/06/16 01:30 (Protonix) 40 mg DAILY PO 12/06/16 09:00 12/06/16 09:33 (Ecotrin Ec) 81 mg DAILY PO 12/06/16 09:00 12/06/16 09:39 (Lipitor) 10 mg HS PO 12/06/16 21:00 12/06/16 21:22 (Symbicort 80-4.5 Mcg Inh) 2 puff Q12HR INH 12/06/16 09:00 12/06/16 21:21 (Singulair) 10 mg HS PO 12/06/16 21:00 12/06/16 21:22 (D50w (Vial) Inj) 25 ml UNSCH PRN IV PUSH 12/06/16 08:30 (Glucagon Inj) 1 mg UNSCH PRN OTHER 12/06/16 08:30 (Robitussin Ac 200-20 Mg/10 ml Liq) 10 ml Q4H PRN PO 12/06/16 08:45 12/07/16 04:37 (Catapres) 0.1 mg Q6H PRN PO 12/06/16 09:00 (Heparin Inj) 5,000 units Q8HR SQ 12/06/16 14:00 12/07/16 06:26 (SoluMEDROL INJ) 40 mg Q8HR IV PUSH 12/06/16 16:00 12/07/16 06:25 (Benadryl) 50 mg ONCE ONCE PO 12/07/16 09:00 12/07/16 09:01 UNV (Benadryl) 25 mg Q6H PRN PO 12/07/16 09:00 UNV A/P Assessment and Plan Acute on chronic bronchitis The patient complains of severe coughing fits associated with vomiting. She also endorses chest pain secondary to coughing too frequently. Troponins flat, EKGs without evidence of acute ischemia. She has a history of asthma and follows with a director product regularly. Chest x-ray with: Chronic interstitial changes at the lung bases bilaterally; No acute finding is identified. She had a mild leukocytosis that resolved. Symptoms continue to improve. - Robitussin-AC as needed for cough suppression. - Oxygen and nebs as needed. Standing nebs also ordered. - Incentive spirometry. - Sputum culture and Gram stain. - IV doxycycline d/c s/t rash. Hold off on further antibiotics. - encourage ambulation. - oxygen walk test ordered. HTN The patient has been on the hypotensive side. Blood pressure normal without antihypertensives. - DC valsartan. - clonidine as needed. Acute renal insufficiency Creatinine is quite elevated. The patient endorses decreased by mouth intake. She is also on valsartan. Resolved with IVFs. - DC valsartan. - S/p IV fluids. - avoid nephrotoxic agents. DM On metformin as an outpt. - hold metformin. - insulin sliding scale. - wean steroids. PPx: Heparin Discharge Planning Anticipate d/c home in [place] Madrid DO Dec 07, 2016 09:07
[2016-12-07] MEDS ORDERED: diphenhydrAMINE HCL 50 MG CAP PO ONE (10:00)
[2016-12-07] MEDS: ASPIRIN EC 81 MG TABEC PO SCH (10:03)
[2016-12-07] MEDS: PANTOPRAZOLE SOD 40 MG DELAYED RELEASE TAB PO SCH (10:04)
[2016-12-07] MEDS: BUDESONIDE-FORMOTEROL 80/4.5 MCG INHALER INH SCH ×2 (10:04→21:08)
[2016-12-07] MEDS ORDERED: predniSONE 10 MG TAB PO ONE (13:30)
[2016-12-07] MEDS: LACTIC ACID (AMMONIUM LACTATE) 12% LOTION 225 GM BTL TOPICAL SCH ×2 (14:13→21:17)
[2016-12-07] MEDS: diphenhydrAMINE HCL 25 MG CAP PO SCH ×2 (14:13→21:08)
[2016-12-07] MEDS: predniSONE 20 MG TAB PO SCH (21:08)
[2016-12-07] MEDS: ATORVASTATIN 10 MG TAB PO SCH (21:08)
[2016-12-07] MEDS: MONTELUKAST SODIUM 10 MG TAB PO SCH (21:08)
[2016-12-08] VITALS: BP 120/78; PULSE 100; RESP 17; TEMP 97.3; O2SAT 94
[2016-12-08] MEDS: RESP: ALBUTEROL 2.5 MG/IPRATROPIUM 0.5 MG NEB (SCH) NEB ×2 (03:56→09:38)
[2016-12-08] MEDS: diphenhydrAMINE HCL 25 MG CAP PO SCH ×2 (04:27→07:48)
[2016-12-08] MEDS: HEPARIN SODIUM - SQ 10,000 UNITS/ML VIAL SQ SCH (04:27)
[2016-12-08] MEDS: guaiFENesin/CODEINE SYRUP 200 MG/20 MG/10 ML CUP PO PRN (05:32)
[2016-12-08] MEDS: INSULIN ASPART SUPPLEMENTAL SCALE SQ SCH (07:47)
[2016-12-08] MEDS: SODIUM CHLORIDE 0.9% FLUSH 10 ML FLUSH IV FLUSH SCH (07:48)
[2016-12-08] MEDS: BUDESONIDE-FORMOTEROL 80/4.5 MCG INHALER INH SCH (07:48)
[2016-12-08] MEDS: predniSONE 20 MG TAB PO SCH (07:49)
[2016-12-08] MEDS: PANTOPRAZOLE SOD 40 MG DELAYED RELEASE TAB PO SCH (07:49)
[2016-12-08] MEDS: LACTIC ACID (AMMONIUM LACTATE) 12% LOTION 225 GM BTL TOPICAL SCH (07:49)
[2016-12-08] MEDS: ASPIRIN EC 81 MG TABEC PO SCH (07:49)
[2016-12-08 08:00] VITALS: BP 117/74; PULSE 98; RESP 18; TEMP 97.7; O2SAT 97
[2016-12-08 08:01] VITALS: PULSE 93
[2016-12-08] MEDS ORDERED: GUAISYP4 PO (09:17)
[2016-12-08] MEDS ORDERED: PRED20 PO ×2 (09:17)
[2016-12-08] MEDS ORDERED: LACT12LO4 TOPICAL (09:17)
--- NOTE | 2016-12-08 09:19 | HHI.DCPOC ---
Discharge Care Plan Diagnosis: (1) Bronchitis (2) Asthma exacerbation (3) DMII (diabetes mellitus, type 2) (4) Rash Goals to Promote Your Health * To prevent worsening of your condition and complications * To maintain your health at the optimal level Directions to Meet Your Goals Take your medications as prescribed Follow your dietary instruction Follow activity as directed Keep your appointments as scheduled Take your immunizations and boosters as scheduled If your symptoms worsen call your PCP, if no PCP go to Urgent Care Center or Emergency Room Smoking is Dangerous to Your Health. Avoid second hand smoke Call the 24-hour hour crisis hotline for domestic abuse at Xavier Demarco DO Dec 08, 2016 09:19
--- NOTE | 2016-12-08 09:26 | HHI.DS ---
Discharge Summary Admission Date Dec 06, 2016 at 01:51 Discharge Date: Dec 08, 2016 Admitting Diagnosis acute exacerbation COPD. Chest pain (1) DMII (diabetes mellitus, type 2) ICD Code: E11.9 (2) Asthma exacerbation ICD Code: J45.901 (3) Bronchitis ICD Code: J40 Diagnosis: Principal (4) Rash ICD Code: R21 Procedures None Brief History - From Admission The patient is a 66-year-old female with a past medical history of asthma who is presenting to the hospital with a severe cough. She says she has had a bad cough that has been getting worse. She says she came to the emergency department a few days ago and was given a cough medication, however, she says none of the pharmacies she went to had the medication in stock. She said she had a coughing pill that she took at home which did not work. She has also been taking azithromycin that her primary care doctor prescribed her recently. She has been coughing up yellow mucus. She denies any fever. She does endorse chest pain associated with her coughing. She mentions she has been vomiting as well. She says she sees her compressor station engineer every few months and is next due to see him in December. She says she has been taking nebulizer treatments at home which has been helping. She currently feels much improved. She says she does not have much of an appetite and has not been drinking much fluids. She says her blood pressure has been running low recently. She denies any diarrhea, constipation or urinary symptoms. CBC/BMP: 12/07/16 0622 12/07/16 0622 Significant Findings Laboratory Tests Test 12/05/16 12/06/16 12/07/16 23:25 11:05 06:22 White Blood Count 12.7 TH/MM3 (4.0-11.0) Eosinophils (%) (Auto) 5.5 % (0.0-4.0) Neutrophils # (Auto) 8.3 TH/MM3 (1.8-7.7) Eosinophils # (Auto) 0.7 TH/MM3 (0-0.4) Prothrombin Time 11.9 SEC (9.8-11.6) Activated Partial 23.3 SEC Thromboplast Time (24.3-30.1) Chloride Level 108 MEQ/L (98-107) Blood Urea Nitrogen 31 MG/DL (7-18) 30 MG/DL (7-18) Creatinine 1.70 MG/DL (0.50-1.00) Estimat Glomerular Filtration 36 ML/MIN (>89) 67 ML/MIN (>89) Rate Random Glucose 116 MG/DL 244 MG/DL (74-106) (74-106) Troponin I LESS THAN 0.02 NG/ML (0.02-0.05) Red Blood Count 3.58 MIL/MM3 (4.00-5.30) Hemoglobin 11.0 GM/DL (11.6-15.3) Hematocrit 33.2 % (35.0-46.0) Neutrophils (%) (Auto) 77.9 % (16.0-70.0) Lymphocytes # (Auto) 0.7 TH/MM3 (1.0-4.8) Imaging Last Impressions Chest X-Ray 12/06/16 0000 Signed Impressions: Service Date/Time: Tuesday, December 06, 2016 16:34 - CONCLUSION: Mild increased perihilar interstitial markings consistent with mild pulmonary vascular congestion versus viral pneumonitis. Clinical correlation is recommended. Delvis Asif MD PE at Discharge GENERAL: This is a well-nourished, well-developed patient, in no apparent distress. SKIN: Mild macular eruption on hands and feet. HEAD: Atraumatic. Normocephalic. No temporal or scalp tenderness. EYES: Pupils equal round and reactive. Extraocular motions intact. No scleral icterus. No injection or drainage. ENT: Nose without bleeding, purulent drainage or septal hematoma. Throat without erythema, tonsillar hypertrophy or exudate. Uvula midline. Airway patent. NECK: Trachea midline. No JVD or lymphadenopathy. Supple, nontender, no meningeal signs. CARDIOVASCULAR: Tachycardic without murmurs, gallops, or rubs. RESPIRATORY: Clear to auscultation. Breath sounds equal bilaterally. No wheezes , rales, or rhonchi. GASTROINTESTINAL: Abdomen soft, non-tender, nondistended. No hepato-splenomegaly , or palpable masses. No guarding. MUSCULOSKELETAL: Extremities without clubbing, cyanosis, or edema. No joint tenderness, effusion, or edema noted. NEUROLOGICAL: Awake and alert. Cranial nerves II through XII intact. Motor and sensory grossly within normal limits. Five out of 5 muscle strength in all muscle groups. Normal speech. PSYCH: Mood and affect appropriate. Pt update on day of discharge The patient was feeling well and wanted to go home. She said her cough and breathing was improved. She also said her rash was improved. Discussed with nursing. Hospital Course Acute on chronic bronchitis The patient complained of severe coughing fits associated with vomiting. She also endorsed chest pain secondary to coughing so frequently. Troponins were flat, EKGs without evidence of acute ischemia. She has a history of asthma and follows with a compressor station engineer regularly. Chest x-ray with: Chronic interstitial changes at the lung bases bilaterally; No acute finding is identified. She had a mild leukocytosis that resolved. Symptoms continued to improve. She received Robitussin-AC as needed for cough suppression. She was started on IV Solumedrol. She received oxygen and nebs as needed. She received incentive spirometry. She was started on IV doxycycline but that was d/c s/t rash. She continued to improve without further antibiotics. She completed a home oxygen walk test and will not require home oxygen. She will follow up with her compressor station engineer. She will complete a prednisone taper. HTN Blood pressure has been normal without antihypertensives. We will discontinue valsartan. The pt will follow up with her PCP. Acute renal insufficiency The patient endorsed decreased by mouth intake. Resolved with IVFs. We d/c valsartan as above. Rash Likely secondary to antibiotics. Antibiotics were discontinued. The patient was also started on Benadryl. She was continued on steroids. Her rash improved. She will follow up with her primary care doctor. Pt Condition on Discharge: Stable Discharge Disposition: Discharge Home Discharge Time: <= 30 minutes Discharge Instructions DIET: Follow Instructions for: Diabetic Diet Activities you can perform: Weight Bearing as Vini Follow up Referrals: PCP Follow-up - 1 Week Pulmonology - 1 Week with Bob Loza MD New Medications: Guaifenesin-Codeine Liq (Guaifenesin AC Liq) 100-10 Mg/5 Ml Syrp 5 ML PO Q6H PRN COUGH #1 Ref 0 BOTTLE Prednisone (Prednisone) 20 Mg Tab 20 MG PO DAILY Start taking once finished with twice daily dose Breathing #5 Ref 0 TAB Lactic Acid (Ammonium Lactate) (Amlactin) 12 % Lot 1 APPLIC TOPICAL BID Dry Skin #1 BOTTLE Prednisone (Prednisone) 20 Mg Tab 20 MG PO BID Breathing #6 TAB Continued Medications: Albuterol Neb (Albuterol Neb) 2.5 Mg/0.5 Ml Neb 2.5 MG NEB Q4HR NEB Note: The Albuterol Sulfate Inhalation Solution is concentrated and must be diluted. Read complete instructions carefully before using. PRN SHORTNESS OF BREATH EA Aspirin DR (Aspirin 81) 81 Mg Tabdr 81 MG PO DAILY Ref 0 TAB Atorvastatin (Atorvastatin) 10 Mg Tab 10 MG PO HS Cholesterol Management #30 Ref 0 TAB Benzonatate (Benzonatate) 100 Mg Cap 100 MG PO TID PRN COUGH Ref 0 CAP Budesonide-Formoterol Inh (Symbicort Inh) 80-4.5 Mcg/Act Aero 2 PUFF INH Q12HR Asthma Management #1 Ref 0 INHALER Fluticasone Nasal [place] (Flonase Nasal [place]) 50 Mcg/Act [place] 50 MCG EACH NARE BID PRN ALLERGIES #1 Ref 0 BOTTLE Ipratropium-Albuterol Neb (Duoneb) 0.5-2.5 Mg/3 Ml Neb 1 NEBULE INH Q6HR NEB Breathing Treatment #60 Ref 0 NEBULE Metformin (Metformin) 500 Mg Tab 500 MG PO BIDPC With meals Blood Sugar Management #60 Ref 0 TAB Montelukast (Montelukast) 10 Mg Tab 10 MG PO HS #30 Ref 0 TAB Discontinued Medications: Azithromycin (Azithromycin) 250 Mg Tab 250 MG PO DAILY Infection Ref 0 TAB Ipratropium-Albuterol Neb (Duoneb) 0.5-2.5 Mg/3 Ml Neb 1 NEBULE INH Q6HR NEB Breathing Treatment #30 Ref 0 NEBULE Valsartan (Valsartan) 80 Mg Tab 80 MG PO DAILY #30 Ref 0 TAB Xavier Demarco DO Dec 08, 2016 09:26
[2016-12-08 09:38] VITALS: O2SAT 98
[2016-12-08 13:29] LABS: RAPID PLASMA REAGIN SCREEN NON-REACTIVE (NON-REACTVE)
== END 2016-12-08 11:04 | disposition home or self-care (01) ==
LOC: PHED 23:09 → PHEDA 12-06 01:51 → PH3B 12-06 03:05
PROVIDERS: ADMIT Hospitalist; ATTEND Hospitalist
DX: J44.0 Chronic obstructive pulmonary disease with (acute) lower respiratory infection (principal); J20.9 Acute bronchitis, unspecified; J45.901 Unspecified asthma with (acute) exacerbation; I95.9 Hypotension, unspecified; R00.0 Tachycardia, unspecified; R21 Rash and other nonspecific skin eruption; R11.2 Nausea with vomiting, unspecified; I44.7 Left bundle-branch block, unspecified; R94.31 Abnormal electrocardiogram [ECG] [EKG]; I10 Essential (primary) hypertension; E11.9 Type 2 diabetes mellitus without complications; N28.9 Disorder of kidney and ureter, unspecified; E78.5 Hyperlipidemia, unspecified; E78.00 Pure hypercholesterolemia, unspecified; K21.9 Gastro-esophageal reflux disease without esophagitis; Z79.899 Other long term (current) drug therapy; Z79.84 Long term (current) use of oral hypoglycemic drugs; Z79.82 Long term (current) use of aspirin; Z82.49 Family history of ischemic heart disease and other diseases of the circulatory system
CPT/HCPCS: 71010; 80048; 80053; 82550; 82948; 83880; 84484; 85025; 85610; 85730; 86592; 87804; 93005; 94150; 94620; 94640; 94664; 96374; 96375; 99285; G0378; J0456; J1644; J1815; J2270; J2405; J2920; J2930; J7050; J7512; Q0163

== ENCOUNTER 2017-01-20 23:28 | Emergency (ER) | payer OTHER ==
[~2017-01-20] VITALS: Ht 162.6 cm; Wt 60.0 kg
[~2017-01-20 23:28] MED LIST changes: +BENZ1CAP8 PO; +GUAISYP4 PO; +LACT12LO4 TOPICAL; +PRED20 PO; -TUSSSUS2 PO; -VALS1TAB64 PO
[2017-01-20 23:38] VITALS: BP 114/65; PULSE 111; RESP 20; TEMP 98.2; O2SAT 95
[2017-01-20 23:53] VITALS: BP 98/66; PULSE 96; RESP 18; TEMP 98.2; O2SAT 96
--- NOTE | 2017-01-21 00:27 | PD ---
HPI Chief Complaint: Respiratory Symptoms Time Seen by Provider: 00:16 Travel History International Travel<30 days: No Contact w/Intl Traveler<30days: No Traveled to known affect area: No History of Present Illness HPI 66 year-old female presents to the emergency department complaint of generalized weakness not feeling well coughing congestion and shortness of breath. Patient states that she hasn't felt well since with worsening symptoms today. Patient states that she did take nebulized treatment prior to arrival to the emergency department. Patient also complains of chest tightness. Patient does not report any referred radiation into the neck jaw back shoulder arm. Patient denies abdominal pain. Patient did have nausea with 3 episodes of vomiting stomach contents. No sweats. No hematemesis no coffee-ground emesis. Patient does have history of asthma LBBB hypertension diabetes and dyslipidemia. Patient denies personal history of CAD. Patient is a nonsmoker. Patient does have family history of cardiac disease. PFSH Past Medical History Narrative Medical asthma LBBB hypertension diabetes dyslipidemia; no tobacco use; nursing notes reviewed Hx Anticoagulant Therapy: Yes (ASA 81 MG) Asthma: Yes Heart Rhythm Problems: No Cardiac Catheterization: No Cardiovascular Problems: Yes (c/o chest pain on admision.) High Cholesterol: Yes Chemotherapy: No Chest Pain: Yes (r/t diagnosis.) Congestive Heart Failure: No Cerebrovascular Accident: No Diabetes: Yes Patient Takes Glucophage: Yes Diminished Hearing: No Endocrine: Yes Gastrointestinal Disorders: Yes GERD: Yes Genitourinary: No Headaches: No Hiatal Hernia: No Heparin Induced Thrombocytopen: No Hypertension: Yes Immune Disorder: No Implanted Vascular Access Dvce: No Musculoskeletal: No Neurologic: No Reproductive: No Respiratory: Yes (ASTHMA) Immunizations Current: Yes Radiation Therapy: No Seizures: No Sleep Apnea: No Ulcer: No Tetanus Vaccination: Unknown Influenza Vaccination: Yes ?: Not Menopausal: Yes : 1 Para: 1 Tubal Ligation: Yes Past Surgical History Abdominal Surgery: Yes Cardiac Surgery: No Section: Yes Cholecystectomy: Yes Coronary Artery Bypass Graft: No Ear Surgery: No Endocrine Surgery: No Eye Surgery: No Genitourinary Surgery: No Gynecologic Surgery: Yes (C SECTION) Hysterectomy: Yes Neurologic Surgery: No Oral Surgery: No Thoracic Surgery: No Other Surgery: Yes (SINUS SURGERY) Family History Family Myocardial Infarction: Yes (brother passed from [place]) Social History Alcohol Use: No Tobacco Use: No Substance Use: No Allergies-Medications (Allergen,Severity, Reaction): Coded Allergies: diatrizoate meglumine (Unverified Allergy, Severe, Rash, 01/20/17) gadobenic acid (Unverified Allergy, Severe, Rash, 01/20/17) gadodiamide (Unverified Allergy, Severe, Rash, 01/20/17) gadoteridol (Unverified Allergy, Severe, Rash, 01/20/17) iodixanol (Unverified Allergy, Severe, Rash, 01/20/17) iohexol (Unverified Allergy, Severe, Rash, 01/20/17) ceftriaxone (Unverified Allergy, Mild, RASH, 01/20/17) penicillin G (Unverified Allergy, Mild, Nausea/Vomiting, 01/20/17) Reported Meds & Prescriptions Reported Meds & Active Scripts Active Albuterol Neb (Albuterol Sulfate) 2.5 Mg/3 Ml Neb 2.5 Mg NEB Q4HR NEB PRN Cipro (Ciprofloxacin HCl) 500 Mg Tab 500 Mg PO BID 7 Days Guaifenesin AC Liq (Guaifenesin-Codeine Liq) 100-10 Mg/5 Ml Syrp 5 Ml PO Q6H PRN Amlactin (Lactic Acid (Ammonium Lactate)) 12 % Lot 1 Applic TOPICAL BID Duoneb (Ipratropium-Albuterol Neb) 0.5-2.5 Mg/3 Ml Neb 1 Nebule INH Q6HR NEB Reported Atorvastatin (Atorvastatin Calcium) 10 Mg Tab 10 Mg PO HS Aspirin 81 (Aspirin) 81 Mg Tabdr 81 Mg PO DAILY Albuterol Neb (Albuterol Sulfate) 2.5 Mg/0.5 Ml Neb 2.5 Mg NEB Q4HR NEB PRN Note: The Albuterol Sulfate Inhalation Solution is concentrated and must be diluted. Read complete instructions carefully before using. Symbicort Inh (Budesonide/Formoterol Fumarate) 80-4.5 Mcg/Act Aero 2 Puff INH Q12HR Flonase Nasal [place] (Fluticasone Nasal [place]) 50 Mcg/Act [place] 50 Mcg EACH NARE BID PRN Metformin (Metformin HCl) 500 Mg Tab 500 Mg PO BIDPC With meals Montelukast (Montelukast Sodium) 10 Mg Tab 10 Mg PO HS Review of Systems Except as stated in HPI: all other systems reviewed are Neg Physical Exam Narrative GENERAL: Well-developed mildly ill appearing female in no acute distress no respiratory distress SKIN: Warm and dry. HEAD: Normocephalic. EYES: No scleral icterus. No injection or drainage. NECK: Supple, trachea midline. No JVD or lymphadenopathy. CARDIOVASCULAR: Regular rate and rhythm without murmurs, gallops, or rubs. RESPIRATORY: Breath sounds equal bilaterally. No accessory muscle use. GASTROINTESTINAL: Abdomen soft, non-tender, nondistended. MUSCULOSKELETAL: No cyanosis, or edema. BACK: Nontender without obvious deformity. No CVA tenderness. Data Data Last Documented VS Vital Signs Date Time Temp Pulse Resp B/P (MAP) Pulse Ox O2 Delivery O2 Flow Rate FiO2 01/21/17 04:23 99 18 113/69 (84) 98 01/21/17 01:42 Room Air 01/20/17 23:53 98.2 Orders Orders Complete Blood Count With Diff (01/21/17 00:16) Comprehensive Metabolic Panel (01/21/17 00:16) B-Type Natriuretic Peptide (01/21/17 00:16) Magnesium (Mg) (01/21/17 00:16) Ckmb (Isoenzyme) Profile (01/21/17 00:16) Troponin I (01/21/17 00:16) Urinalysis - C+S If Indicated (01/21/17 00:16) Influenzae A/B Antigen (01/21/17 00:16) Blood Culture (01/21/17 00:16) Iv Access Insert/Monitor (01/21/17 00:16) Electrocardiogram (01/21/17 00:16) Ecg Monitoring (01/21/17 00:16) Oximetry (01/21/17 00:16) Oxygen Administration (01/21/17 00:16) Chest, Single Ap (01/21/17 00:16) Sodium Chloride 0.9% Flush (Ns Flush) (01/21/17 00:30) Sodium Chlorid 0.9% 500 Ml Inj (Ns 500 M (01/21/17 02:00) Methylprednisolone So Succ Inj (Solumedr (01/21/17 02:00) Albuterol-Ipratropium Neb (Duoneb Neb) (01/21/17 02:00) Potassium Chloride (Kcl) (01/21/17 02:15) Magnesium Oxide (Mag-Ox) (01/21/17 02:15) Urine Culture (01/21/17 03:12) Ciprofloxacin (Cipro) (01/21/17 03:45) Labs Laboratory Tests Test 01/21/17 01:30 01/21/17 03:12 White Blood Count 6.7 TH/MM3 Red Blood Count 3.93 MIL/MM3 Hemoglobin 12.2 GM/DL Hematocrit 36.4 % Mean Corpuscular Volume 92.7 FL Mean Corpuscular Hemoglobin 31.0 PG Mean Corpuscular Hemoglobin Concent 33.4 % Red Cell Distribution Width 12.3 % Platelet Count 256 TH/MM3 Mean Platelet Volume 8.1 FL Neutrophils (%) (Auto) 51.7 % Lymphocytes (%) (Auto) 38.9 % Monocytes (%) (Auto) 2.9 % Eosinophils (%) (Auto) 4.8 % Basophils (%) (Auto) 1.7 % Neutrophils # (Auto) 3.5 TH/MM3 Lymphocytes # (Auto) 2.6 TH/MM3 Monocytes # (Auto) 0.2 TH/MM3 Eosinophils # (Auto) 0.3 TH/MM3 Basophils # (Auto) 0.1 TH/MM3 CBC Comment DIFF FINAL Differential Comment Blood Urea Nitrogen 17 MG/DL Creatinine 1.40 MG/DL Random Glucose 127 MG/DL Total Protein 7.1 GM/DL Albumin 3.3 GM/DL Calcium Level 8.1 MG/DL Magnesium Level 1.3 MG/DL Alkaline Phosphatase 116 U/L Aspartate Amino Transf (AST/SGOT) 37 U/L Alanine Aminotransferase (ALT/SGPT) 37 U/L Total Bilirubin 1.2 MG/DL Sodium Level 140 MEQ/L Potassium Level 3.2 MEQ/L Chloride Level 107 MEQ/L Carbon Dioxide Level 23.8 MEQ/L Anion Gap 9 MEQ/L Estimat Glomerular Filtration Rate 45 ML/MIN Total Creatine Kinase 58 U/L Troponin I 0.02 NG/ML B-Type Natriuretic Peptide 195 PG/ML Urine Color YELLOW Urine Turbidity CLEAR Urine pH 6.0 Urine Specific [place] 1.015 Urine Protein NEG mg/dL Urine Glucose (UA) NEG mg/dL Urine Ketones NEG mg/dL Urine Occult Blood NEG Urine Nitrite NEG Urine Bilirubin NEG Urine Leukocyte Esterase SMALL Urine RBC 0-3 /hpf Urine WBC 9-14 /hpf Urine WBC Clumps FEW Urine Squamous Epithelial Cells 0-5 /hpf Urine Bacteria FEW /hpf Urine Mucus FEW /lpf Microscopic Urinalysis Comment CULTURE INDICATED MDM Medical Decision Making Medical Screen Exam Complete: Yes Emergency Medical Condition: Yes Medical Record Reviewed: Yes Interpretation(s) CBC & BMP Diagram 01/21/17 01:30 Total Protein 7.1, Albumin 3.3 L, Calcium Level 8.1 L, Magnesium Level 1.3 L, Alkaline Phosphatase 116, Aspartate Amino Transf (AST/SGOT) 37, Alanine Aminotransferase (ALT/SGPT) 37, Total Bilirubin 1.2 H Vital Signs Date Time Temp Pulse Resp B/P (MAP) Pulse Ox O2 Delivery O2 Flow Rate FiO2 01/21/17 01:42 94 Room Air 01/21/17 01:42 98 18 104/60 (75) 94 Room Air 01/21/17 01:42 98 18 104/60 (75) 94 Room Air 01/20/17 23:57 18 96 Room Air 01/20/17 23:53 98.2 96 18 98/66 (77) 96 01/20/17 23:38 98.2 111 20 114/65 (81) 95 cxr: FINDINGS: A single view of the chest demonstrates the lungs to be symmetrically aerated without evidence of mass, infiltrate or effusion. The cardiomediastinal contours are unremarkable. Osseous structures are intact. CONCLUSION: No evidence of acute cardiopulmonary disease. Gustavo Anderson MD on January 21, 2017 at 0:46 Board Certified Radiologist. This report was verified electronically. troponin I less than 0.02, not elevated; ck: 58, not elevated; bnp: 195, mildly elevated EKG: sinus tachycardia rate 106 LBBB UA: Positive white blood cells clumped white blood cells bacteria culture indicated Differential Diagnosis Dyspnea, chest pain, ACS, CHF, pneumonia, exacerbation COPD, sepsis Narrative Course Patient placed on back closer IV access obtained specimens collected and sent for resulting imaging studies EKG ordered EKG shows sinus tachycardia LBBB no acute ST elevation or injury pattern Labs grossly wnl except mild renal insufficiency and UA with bacteria wbc's and culture indicated Patient good symptom response to one Duoneb updraft fluids and given first dose of antibiotic in the ED; stable for outpatient management Diagnosis Primary Impression: UTI (urinary tract infection) Qualified Codes: N39.0 - Urinary tract infection, site not specified Additional Impressions: Asthma exacerbation, mild Medication refill Referrals: Primary Care Physician call for appointment Patient Instructions: General Instructions Additional Instructions: Increase fluid hydration Follow-up with your primary care provider Complete course of antibiotic as prescribed Continue nebulized treatments as needed Return to the emergency department for any concerns or change in condition Med/Other Pt SpecificInfo: Prescription(s) given Scripts Albuterol Neb (Albuterol Neb) 2.5 Mg/3 Ml Neb 2.5 MG NEB Q4HR NEB Y for SHORTNESS OF BREATH, #60 NEBULE 0 Refills Prov: Chana Melara MD 01/21/17 Ciprofloxacin (Cipro) 500 Mg Tab 500 MG PO BID for Infection for 7 Days, TAB 0 Refills Prov: Chana Melara MD 01/21/17 Disposition: 01 DISCHARGE HOME Condition: Stable Chana Melara MD Jan 21, 2017 00:27
[2017-01-21] MEDS ORDERED: SODIUM CHLORIDE 0.9% FLUSH 10 ML FLUSH IVF PRN (00:30)
--- NOTE | 2017-01-21 00:47 | RADRPT ---
EXAM DATE/TIME: 01/21/2017 00:32 [facility] COMPARISON: CHEST SINGLE AP, December 06, 2016, 16:34. INDICATIONS : Shortness of breath. MEDICAL HISTORY : Hypertension. Asthma SURGICAL HISTORY : Cholecystectomy. Tubal ligation. Hysterectomy ENCOUNTER: Initial ACUITY: 1 day PAIN SCORE: 0/10 LOCATION: Bilateral chest FINDINGS: A single view of the chest demonstrates the lungs to be symmetrically aerated without evidence of mas s, infiltrate or effusion. The cardiomediastinal contours are unremarkable. Osseous structures are intact. CONCLUSION: No evidence of acute cardiopulmonary disease. Gustavo Anderson MD on January 21, 2017 at 0:46 Board Certified Radiologist. This report was verified electronically.
[2017-01-21 01:42] VITALS: BP 104/60; PULSE 98; RESP 18; O2SAT 94
[2017-01-21 01:52] LABS: AUTOMATED NEUTROPHIL # 3.5 TH/MM3 (1.8-7.7); BASOPHIL # 0.1 TH/MM3 (0-0.2); BASOPHIL % 1.7 % (0.0-2.0); EOSINOPHIL # 0.3 TH/MM3 (0-0.4); EOSINOPHIL % 4.8 % (0.0-4.0); HEMATOCRIT 36.4 % (35.0-46.0); HEMO FLAGS DIFF FINAL; LYMPH % 38.9 % (9.0-44.0); LYMPHOCYTE # 2.6 TH/MM3 (1.0-4.8); MEAN CELL VOLUME 92.7 FL (80.0-100.0); MEAN CORPUSCULAR HGB CONC 33.4 % (32.0-36.0); MONO % 2.9 % (0.0-8.0); NEUT % 51.7 % (16.0-70.0); PLATELET COUNT 256 TH/MM3 (150-450); RED BLOOD COUNT 3.93 MIL/MM3 (4.00-5.30); RED CELL DISTRIBUTION WIDTH 12.3 % (11.6-17.2); WHITE BLOOD COUNT 6.7 TH/MM3 (4.0-11.0)
[2017-01-21 02:00] LABS: CHLORIDE 107 MEQ/L (98-107); POTASSIUM 3.2 MEQ/L (3.5-5.1); SODIUM (NA) 140 MEQ/L (136-145)
[2017-01-21] MEDS ORDERED: SODIUM CHLORID 0.9% 500 ML INJ 500 ML IV ONE (02:00)
[2017-01-21] MEDS ORDERED: RESP: ALBUTEROL 2.5 MG/IPRATROPIUM 0.5 MG NEB (SCH) NEB ONE (02:00)
[2017-01-21] MEDS ORDERED: methylPREDNISolone SOD SUCC 125 MG/2 ML VIAL IV PUSH ONE (02:00)
[2017-01-21 02:04] LABS: ANION GAP 9 MEQ/L (5-15); BICARBONATE 23.8 MEQ/L (21.0-32.0); BLOOD UREA NITROGEN 17 MG/DL (7-18); MAGNESIUM 1.3 MG/DL (1.5-2.5)
[2017-01-21 02:07] LABS: ALT (GPT) 37 U/L (10-53); AST (GOT) 37 U/L (15-37); GLOMERULAR FILTRATION RATE 45 ML/MIN (>89)
[2017-01-21 02:09] LABS: TOTAL BILIRUBIN ADULT 1.2 MG/DL (0.2-1.0)
[2017-01-21 02:10] LABS: ALKALINE PHOSPHATASE 116 U/L (45-117)
[2017-01-21] MEDS ORDERED: MAGNESIUM OXIDE 400 MG TAB PO ONE (02:15)
[2017-01-21] MEDS ORDERED: POTASSIUM CHLORIDE 20 MEQ CONTROLLED RELEASE TAB PO ONE (02:15)
[2017-01-21 02:41] LABS: CREATINE KINASE 58 U/L (26-192)
[2017-01-21 03:21] LABS: BLOOD, URINE NEG (NEG); GLUCOSE,URINE NEG (NEG); KETONE, URINE NEG (NEG); NITRITE,URINE NEG (NEG)
[2017-01-21 03:27] LABS: URINE COLOR YELLOW (YELLW/STRAW)
[2017-01-21 03:28] LABS: BACTERIA, URINE FEW /hpf; COMMENT (UR) CULTURE INDICATED; CULTURE IF INDICATED CULTURE INDICATED; MUCUS URINE FEW /lpf (OCC); RBC, URINE 0-3 /hpf (0-3); SQUAMOUS EPITHELIAL CELL URINE 0-5 /hpf (0-5)
[2017-01-21] MEDS ORDERED: ALBU0.08 NEB (03:40)
[2017-01-21] MEDS ORDERED: CIPR-9 PO (03:40)
[2017-01-21] MEDS ORDERED: CIPROFLOXACIN 500 MG TAB PO ONE (03:45)
[2017-01-21 04:23] VITALS: BP 113/69
--- NOTE | 2017-01-21 17:54 | EKG ---
Date Performed: 01/21/2017 Time Performed: 00:26:42 PTAGE: 66 years EKG: SINUS TACHYCARDIA WITH OCCASIONAL SUPRAVENTRICULAR PREMATURE COMPLEXES LEFT BUNDLE BRANCH B LOCK ABNORMAL ECG PREVIOUS TRACING : 12/06/2016 11.06 Compared to prior tracing no significant change DOCTOR: Michoacano Doty Interpretating Date/Time 01/21/2017 17:53:58
== END 2017-01-21 04:25 | disposition home or self-care (01) ==
LOC: PHED 23:28
DX: N39.0 Urinary tract infection, site not specified (principal); J45.901 Unspecified asthma with (acute) exacerbation; E11.9 Type 2 diabetes mellitus without complications; E78.5 Hyperlipidemia, unspecified; I10 Essential (primary) hypertension; Z79.82 Long term (current) use of aspirin
CPT/HCPCS: 71010; 80053; 81001; 82550; 83735; 83880; 84484; 85025; 87040; 87086; 87205; 87804; 93005; 94664; 96361; 96374; 99285; J2930; J7040

== ENCOUNTER 2017-01-27 16:33 | Inpatient (IN) | payer OTHER, MEDICARE ==
[~2017-01-27] VITALS: Ht 162.6 cm; Wt 60.6 kg
[~2017-01-27 16:33] MED LIST changes: +ALBU0.08 NEB; -BENZ1CAP8 PO; +CIPR-9 PO; -PRED20 PO
[2017-01-27 16:39] VITALS: BP 116/66; PULSE 100; RESP 16; TEMP 99.1; O2SAT 98
[2017-01-27] MEDS ORDERED: LEVOFLOXACIN 750 MG TAB PO ONE (20:00)
[2017-01-27] MEDS ORDERED: SODIUM CHLORIDE 0.9% FLUSH 10 ML FLUSH IVF PRN ×2 (20:00→22:45)
--- NOTE | 2017-01-27 20:01 | PD ---
HPI Chief Complaint: Abnormal Results Time Seen by Provider: 19:56 Travel History International Travel<30 days: No Contact w/Intl Traveler<30days: No Traveled to known affect area: No History of Present Illness HPI The patient is a 66-year-old female that was told return to emergency department today because of a positive blood culture, strep viridans in the bloodstream. The patient states he does not have any urinary symptoms now, her only complaint is a cough productive of white sputum last night. She denies any shortness of breath. She denies any chest pain. He does have a history of asthma. She has a history of hypertension and diabetes. She does not smoke. she had a chest x-ray on the which apparently showed no acute change. The patient was put on Cipro, 500 mg twice daily for 10 days. The patient states when she takes Cipro twice daily she gets nauseated and has been taking Cipro only once daily. The patient's states that she was vomiting all night. PFSH Past Medical History Hx Anticoagulant Therapy: Yes (ASA 81 MG) Asthma: Yes Heart Rhythm Problems: No Cardiac Catheterization: No Cardiovascular Problems: Yes (c/o chest pain on admision.) High Cholesterol: Yes Chemotherapy: No Chest Pain: Yes (r/t diagnosis.) Congestive Heart Failure: No Cerebrovascular Accident: No Diabetes: Yes Patient Takes Glucophage: Yes Diminished Hearing: No Endocrine: Yes Gastrointestinal Disorders: Yes GERD: Yes Genitourinary: No Headaches: No Hiatal Hernia: No Heparin Induced Thrombocytopen: No Hypertension: Yes Immune Disorder: No Implanted Vascular Access Dvce: No Musculoskeletal: No Neurologic: No Reproductive: No Respiratory: Yes Immunizations Current: Yes Radiation Therapy: No Seizures: No Sleep Apnea: No Ulcer: No Tetanus Vaccination: > 5 Years Influenza Vaccination: Yes Menopausal: Yes : 1 Para: 1 Tubal Ligation: Yes Past Surgical History Abdominal Surgery: Yes Cardiac Surgery: No Section: Yes Cholecystectomy: Yes Coronary Artery Bypass Graft: No Ear Surgery: No Endocrine Surgery: No Eye Surgery: No Genitourinary Surgery: No Gynecologic Surgery: Yes (C SECTION) Hysterectomy: Yes Neurologic Surgery: No Oral Surgery: No Thoracic Surgery: No Other Surgery: Yes (SINUS SURGERY) Family History Family Myocardial Infarction: Yes (brother passed from [place]) Social History Alcohol Use: No Tobacco Use: No Substance Use: No Allergies-Medications (Allergen,Severity, Reaction): Coded Allergies: gadodiamide (Unverified Allergy, Severe, Rash, 01/27/17) iodixanol (Unverified Allergy, Severe, Rash, 01/27/17) ceftriaxone (Unverified Allergy, Mild, RASH, 01/27/17) penicillin G (Unverified Allergy, Mild, Nausea/Vomiting, 01/27/17) Reported Meds & Prescriptions Reported Meds & Active Scripts Active Levaquin (Levofloxacin) 500 Mg Tablet 500 Mg PO DAILY 7 Days Flowtuss Liq (Hydrocodone-Guaifenesin Liq) 2.5-200 Mg/5 Ml Soln 5 Ml PO Q6H PRN Zofran (Ondansetron HCl) 8 Mg Tab 8 Mg PO TID Guaifenesin AC Liq (Guaifenesin-Codeine Liq) 100-10 Mg/5 Ml Syrp 5 Ml PO Q6H PRN Amlactin (Lactic Acid (Ammonium Lactate)) 12 % Lot 1 Applic TOPICAL BID Duoneb (Ipratropium-Albuterol Neb) 0.5-2.5 Mg/3 Ml Neb 1 Nebule INH Q6HR NEB Reported Atorvastatin (Atorvastatin Calcium) 10 Mg Tab 10 Mg PO HS Aspirin 81 (Aspirin) 81 Mg Tabdr 81 Mg PO DAILY Albuterol Neb (Albuterol Sulfate) 2.5 Mg/0.5 Ml Neb 2.5 Mg NEB Q4HR NEB PRN Note: The Albuterol Sulfate Inhalation Solution is concentrated and must be diluted. Read complete instructions carefully before using. Symbicort Inh (Budesonide/Formoterol Fumarate) 80-4.5 Mcg/Act Aero 2 Puff INH Q12HR Flonase Nasal [place] (Fluticasone Nasal [place]) 50 Mcg/Act [place] 50 Mcg EACH NARE BID PRN Metformin (Metformin HCl) 500 Mg Tab 500 Mg PO BIDPC With meals Montelukast (Montelukast Sodium) 10 Mg Tab 10 Mg PO HS Review of Systems Except as stated in HPI: all other systems reviewed are Neg Physical Exam Narrative GENERAL: The patient is alert, oriented 3 in no apparent distress. Her vital signs show pulse of 100 but otherwise normal. When I see the patient her pulse rate is in the mid 80s. SKIN: Focused skin assessment warm/dry. HEAD: Atraumatic. Normocephalic. EYES: Pupils equal and round. No scleral icterus. No injection or drainage. ENT: No nasal bleeding or discharge. Mucous membranes pink and moist. NECK: Trachea midline. No JVD. CARDIOVASCULAR: Regular rate and rhythm. No murmur appreciated. RESPIRATORY: No accessory muscle use. Clear to auscultation. Breath sounds equal bilaterally. GASTROINTESTINAL: Abdomen soft, non-tender, nondistended. Hepatic and splenic margins not palpable. No guarding or rebound is present. MUSCULOSKELETAL: No obvious deformities. No clubbing. No cyanosis. No edema. NEUROLOGICAL: Awake and alert. No obvious cranial nerve deficits. Motor grossly within normal limits. Normal speech. PSYCHIATRIC: Appropriate mood and affect; insight and judgment normal. Data Data Last Documented VS Vital Signs Date Time Temp Pulse Resp B/P (MAP) Pulse Ox O2 Delivery O2 Flow Rate FiO2 01/27/17 20:51 Room Air 01/27/17 16:39 99.1 100 16 116/66 (83) 98 Orders Orders Complete Blood Count With Diff (01/27/17 19:56) Comprehensive Metabolic Panel (01/27/17 19:56) Chest, Pa & Lat (01/27/17 19:56) Sodium Chloride 0.9% Flush (Ns Flush) (01/27/17 20:00) Levofloxacin (Levaquin) (01/27/17 20:00) Ondansetron Inj (Zofran Inj) (01/27/17 20:45) Sodium Chlor 0.9% 1000 Ml Inj (Ns 1000 M (01/27/17 20:45) Levofloxacin 500 Mg Premix Inj (Levaquin (01/27/17 21:00) Sodium Chlor 0.9% 1000 Ml Inj (Ns 1000 M (01/27/17 21:00) Sodium Chlor 0.9% 1000 Ml Inj (Ns 1000 M (01/27/17 21:00) Lipase (01/27/17 20:00) Hydrocodone-Homatropine Liq (Hycodan Liq (01/27/17 22:00) Labs Laboratory Tests Test 01/27/17 20:00 White Blood Count 7.0 TH/MM3 Red Blood Count 3.93 MIL/MM3 Hemoglobin 12.5 GM/DL Hematocrit 37.0 % Mean Corpuscular Volume 94.2 FL Mean Corpuscular Hemoglobin 31.9 PG Mean Corpuscular Hemoglobin Concent 33.9 % Red Cell Distribution Width 12.4 % Platelet Count 327 TH/MM3 Mean Platelet Volume 7.4 FL Neutrophils (%) (Auto) 37.0 % Lymphocytes (%) (Auto) 41.7 % Monocytes (%) (Auto) 4.4 % Eosinophils (%) (Auto) 15.4 % Basophils (%) (Auto) 1.5 % Neutrophils # (Auto) 2.6 TH/MM3 Lymphocytes # (Auto) 2.9 TH/MM3 Monocytes # (Auto) 0.3 TH/MM3 Eosinophils # (Auto) 1.1 TH/MM3 Basophils # (Auto) 0.1 TH/MM3 CBC Comment DIFF FINAL Differential Comment Blood Urea Nitrogen 20 MG/DL Creatinine 0.88 MG/DL Random Glucose 100 MG/DL Total Protein 7.1 GM/DL Albumin 3.4 GM/DL Calcium Level 9.0 MG/DL Alkaline Phosphatase 145 U/L Aspartate Amino Transf (AST/SGOT) 58 U/L Alanine Aminotransferase (ALT/SGPT) 43 U/L Total Bilirubin 1.4 MG/DL Sodium Level 144 MEQ/L Potassium Level 3.8 MEQ/L Chloride Level 109 MEQ/L Carbon Dioxide Level 25.9 MEQ/L Anion Gap 9 MEQ/L Estimat Glomerular Filtration Rate 77 ML/MIN Lipase 147 U/L MDM Medical Decision Making Medical Screen Exam Complete: Yes Emergency Medical Condition: Yes Medical Record Reviewed: Yes Interpretation(s) The CBC is normal. The complete metabolic profile shows a BUN of 20, GFR of 77 , total bilirubin 1.8 and AST of 58 and phosphatase 145 but is otherwise unremarkable. Differential Diagnosis Pneumonia, bronchitis, asthma, sepsis, electrolyte imbalance, anemia, noncompliance to medications, medication side effect, dehydration Narrative Course It is now 10:17 PM and the patient has no nausea and has held down Gatorade well. She is now urinating. She'll be given Levaquin 500 milligrams daily, flow test liquid for her cough and Zofran 8 mg to take 3 times daily. Additional Instructions: As we discussed, increase clear liquid intake and follow-up with her primary care physician next week. Med/Other Pt SpecificInfo: Prescription(s) given Scripts Levofloxacin (Levaquin) 500 Mg Tablet 500 MG PO DAILY for Infection for 7 Days, #7 TAB 0 Refills Prov: Jayden Colin MD 01/27/17 Hydrocodone-Guaifenesin Liq (Flowtuss Liq) 2.5-200 Mg/5 Ml Soln 5 ML PO Q6H Y for cough, #120 ML 0 Refills Prov: Jayden Colin MD 01/27/17 Ondansetron (Zofran) 8 Mg Tab 8 MG PO TID for Nausea/Vomiting, #28 TAB 0 Refills Prov: Jayden Colin MD 01/27/17 Jayden Colin MD Jan 27, 2017 20:01
[2017-01-27 20:12] LABS: AUTOMATED NEUTROPHIL # 2.6 TH/MM3 (1.8-7.7); BASOPHIL # 0.1 TH/MM3 (0-0.2); BASOPHIL % 1.5 % (0.0-2.0); EOSINOPHIL # 1.1 TH/MM3 (0-0.4); EOSINOPHIL % 15.4 % (0.0-4.0); HEMO FLAGS DIFF FINAL; LYMPH % 41.7 % (9.0-44.0); LYMPHOCYTE # 2.9 TH/MM3 (1.0-4.8); MEAN CELL VOLUME 94.2 FL (80.0-100.0); MEAN CORPUSCULAR HEMOGLOBIN 31.9 PG (27.0-34.0); MEAN CORPUSCULAR HGB CONC 33.9 % (32.0-36.0); MONO % 4.4 % (0.0-8.0); PLATELET COUNT 327 TH/MM3 (150-450); RED BLOOD COUNT 3.93 MIL/MM3 (4.00-5.30); RED CELL DISTRIBUTION WIDTH 12.4 % (11.6-17.2)
[2017-01-27 20:19] LABS: CHLORIDE 109 MEQ/L (98-107); POTASSIUM 3.8 MEQ/L (3.5-5.1); SODIUM (NA) 144 MEQ/L (136-145)
[2017-01-27 20:23] LABS: ANION GAP 9 MEQ/L (5-15); BICARBONATE 25.9 MEQ/L (21.0-32.0); BLOOD UREA NITROGEN 20 MG/DL (7-18)
[2017-01-27 20:26] LABS: ALT (GPT) 43 U/L (10-53); AST (GOT) 58 U/L (15-37); GLOMERULAR FILTRATION RATE 77 ML/MIN (>89)
[2017-01-27 20:27] LABS: TOTAL BILIRUBIN ADULT 1.4 MG/DL (0.2-1.0)
[2017-01-27 20:29] LABS: ALKALINE PHOSPHATASE 145 U/L (45-117)
--- NOTE | 2017-01-27 20:30 | RADRPT ---
EXAM DATE/TIME: 01/27/2017 20:01 [facility] COMPARISON: CHEST SINGLE AP, January 21, 2017, 0:32. INDICATIONS : Cough, tightness in chest. MEDICAL HISTORY : Asthma. SURGICAL HISTORY : None. ENCOUNTER: Initial ACUITY: 1 day PAIN SCORE: 5/10 LOCATION: Bilateral chest FINDINGS: Mild consolidation developing of the left lung base. No perceptible effusion. No pneumothorax. Heart size stable, upper limits of normal. CONCLUSION: Mild left base consolidation developing. Gustavo Anderson MD on January 27, 2017 at 20:29 Board Certified Radiologist. This report was verified electronically.
[2017-01-27] MEDS ORDERED: ONDANSETRON HCL 4 MG/2 ML VIAL IV ONE (20:45)
[2017-01-27] MEDS ORDERED: SODIUM CHLOR 0.9% 1000 ML INJ 1,000 ML IV SCH ×2 (20:45→21:00)
[2017-01-27] MEDS ORDERED: ZOFR8TAB PO (20:58)
[2017-01-27] MEDS: SODIUM CHLOR 0.9% 1000 ML INJ 1,000 ML IV SCH (21:00)
[2017-01-27] MEDS ORDERED: LEVOFLOXACIN 500 MG PREMIX INJ 100 ML IV ONE (21:00)
[2017-01-27] MEDS ORDERED: HYDROcodone 5 MG/HOMATROPINE 1.5 MG SYRUP 5 ML CUP PO ONE (22:00)
[2017-01-27] MEDS ORDERED: HYDR1SOL20 PO (22:02)
[2017-01-27] MEDS ORDERED: LEVA500T20 PO (22:15)
[2017-01-27] MEDS ORDERED: RESP: ALBUTEROL 2.5 MG/IPRATROPIUM 0.5 MG NEB (SCH) INH ONE (22:30)
[2017-01-27 22:40] VITALS: BP 104/63; PULSE 122; RESP 28; TEMP 98.6; O2SAT 90
[2017-01-27] MEDS: RESP: ALBUTEROL 2.5 MG/IPRATROPIUM 0.5 MG NEB (SCH) INH ×2 (22:52→22:53)
[2017-01-27] MEDS ORDERED: ONDANSETRON HCL 4 MG/2 ML VIAL IVP PRN (23:15)
[2017-01-27] MEDS ORDERED: MORPHINE SULFATE 4 MG/ML INJ IV PUSH PRN (23:15)
[2017-01-27] MEDS ORDERED: MAGNESIUM HYDROXIDE SUSP 30 ML CUP PO PRN (23:15)
[2017-01-27] MEDS ORDERED: Vancomycin Consult Pharmacy 1 EA OTHER SCH (23:15)
[2017-01-27] MEDS ORDERED: GLUCAGON 1 MG/ML VIAL OTHER PRN (23:15)
[2017-01-27] MEDS ORDERED: SENNOSIDES 8.6 MG TAB PO PRN (23:15)
[2017-01-27] MEDS ORDERED: LACTULOSE SYRUP 20 GM/30 ML CUP PO PRN (23:15)
[2017-01-27] MEDS ORDERED: BISACODYL 10 MG SUPP RECTAL PRN (23:15)
[2017-01-27] MEDS ORDERED: DEXTROSE 50% IN WATER 50 ML VIAL(D50) IV PRN (23:15)
[2017-01-27] MEDS ORDERED: SODIUM CHLORIDE 0.9% FLUSH 10 ML FLUSH IV FLUSH PRN (23:15)
[2017-01-27] MEDS ORDERED: ACETAMINOPHEN 325 MG TAB PO PRN (23:15)
[2017-01-27 23:26] LABS: BLOOD GAS BASE EXCESS -1.7 mmol/L (-2-2); BLOOD GAS CARBOXYHEMOGLOBIN 1.6 % (0-4); BLOOD GAS HCO3 22 mmol/L (22-26); BLOOD GAS METHEMOGLOBIN 1.1 % (0-2); BLOOD GAS O2 HGB SATURATION 91 % (90-100); BLOOD GAS OXYGEN CONTENT 15.3 Vol % (12.0-20.0); BLOOD GAS PCO2 36 mmHG (38-42); BLOOD GAS PO2 69 mmHG (61-120); BLOOD GAS TOTAL HGB 11.9 G/DL (12.0-16.0); CRITICAL VALUE NO; DRAW SITE RT BRACHIAL; FIO2 21 %; NUMBER OF ARTERIAL PUNCTURES 1; OXYGEN DEVICE ROOM AIR; STAT YES; TEMP CORR TO 98.6
[2017-01-27 23:30] VITALS: O2SAT 95
[2017-01-28] VITALS (12 sets, daily range): BP systolic 98–126; BP diastolic 65–78; PULSE 20–119; RESP 17–26; TEMP 95.8–98.9; O2SAT 88–99
[2017-01-28] MEDS: SODIUM CHLOR 0.9% 1000 ML INJ 1,000 ML IV SCH (00:47)
[2017-01-28] MEDS ORDERED: VANCOMYCIN IV SCH ×2 (01:00)
[2017-01-28] MEDS ORDERED: SODIUM CHLORIDE IV SCH ×2 (01:00)
[2017-01-28] MEDS: guaiFENesin/CODEINE SYRUP 200 MG/20 MG/10 ML CUP PO PRN ×4 (01:00→23:52)
[2017-01-28] MEDS: RESP: ALBUTEROL 2.5 MG/IPRATROPIUM 0.5 MG NEB (PRN) INH ×3 (02:03→20:50)
[2017-01-28] MEDS ORDERED: methylPREDNISolone SOD SUCC 125 MG/2 ML VIAL IV PUSH ONE (03:00)
[2017-01-28 07:19] LABS: AUTOMATED NEUTROPHIL # 3.9 TH/MM3 (1.8-7.7); BASOPHIL % 0.9 % (0.0-2.0); EOSINOPHIL % 0.4 % (0.0-4.0); HEMATOCRIT 34.8 % (35.0-46.0); HEMO FLAGS DIFF FINAL; LYMPHOCYTE # 0.5 TH/MM3 (1.0-4.8); MEAN CELL VOLUME 93.6 FL (80.0-100.0); MEAN CORPUSCULAR HEMOGLOBIN 31.3 PG (27.0-34.0); MEAN CORPUSCULAR HGB CONC 33.4 % (32.0-36.0); MONO % 1.5 % (0.0-8.0); NEUT % 85.2 % (16.0-70.0); PLATELET COUNT 327 TH/MM3 (150-450); RED BLOOD COUNT 3.72 MIL/MM3 (4.00-5.30); RED CELL DISTRIBUTION WIDTH 12.4 % (11.6-17.2); WHITE BLOOD COUNT 4.5 TH/MM3 (4.0-11.0)
[2017-01-28 07:33] LABS: CHLORIDE 110 MEQ/L (98-107); POTASSIUM 3.3 MEQ/L (3.5-5.1); SODIUM (NA) 143 MEQ/L (136-145)
[2017-01-28 07:51] LABS: ALKALINE PHOSPHATASE 112 U/L (45-117); ALT (GPT) 29 U/L (10-53); ANION GAP 11 MEQ/L (5-15); AST (GOT) 29 U/L (15-37); BICARBONATE 22.1 MEQ/L (21.0-32.0); BLOOD UREA NITROGEN 21 MG/DL (7-18); GLOMERULAR FILTRATION RATE 69 ML/MIN (>89); TOTAL BILIRUBIN ADULT 1.2 MG/DL (0.2-1.0)
[2017-01-28] MEDS: INSULIN ASPART SUPPLEMENTAL SCALE SQ SCH ×4 (08:00→21:57)
[2017-01-28] MEDS: DOCUSATE SODIUM 50 MG/SENNA 8.6 MG TAB PO SCH ×2 (09:00→21:56)
[2017-01-28] MEDS: SODIUM CHLORIDE 0.9% FLUSH 10 ML FLUSH IV FLUSH SCH ×2 (09:00→21:56)
[2017-01-28] MEDS: BUDESONIDE-FORMOTEROL 80/4.5 MCG INHALER INH SCH ×2 (10:55→22:12)
[2017-01-28] MEDS: ASPIRIN EC 81 MG TABEC PO SCH (10:56)
--- NOTE | 2017-01-28 12:48 | EKG ---
Date Performed: 01/27/2017 Time Performed: 23:57:23 PTAGE: 66 years EKG: SINUS TACHYCARDIA LEFT BUNDLE BRANCH BLOCK ABNORMAL ECG PREVIOUS TRACING : 01/21/2017 00.26 No significant change from previous tracing noted. DOCTOR: Naveed Mcneal Interpretating Date/Time 01/28/2017 12:46:57
[2017-01-28] MEDS: AZTREONAM INJ 2,000 MG in SODIUM CHLORIDE 0.9% INJ 100 ML IV SCH ×2 (16:13→22:14)
--- NOTE | 2017-01-28 17:50 | HHI.HP ---
[facility] Primary [facility] Physician Da Ramires M.D. Admission Diagnosis bacteremia, left lower lobe pneumonia Diagnoses: (1) Bacteremia Diagnosis: Principal Chief Complaint: Patient called back to the hospital because of positive blood cultures Travel History International Travel<30 Days: No Contact w/Intl Traveler <30 Da: No Traveled to Known Affected Are: No History of Present Illness Written by Sridhar Colin, acting as scribe for Dr. Galvan on 01/28/17 at 17:40. 66-year-old female with known history of hypertension, hyperlipidemia, diabetes , asthma, gastroesophageal reflux, possible underlying thyroid condition who presented to the hospital because she was called to come back to the hospital because of positive blood cultures. Patient originally presented to the hospital on January 20, 2017 because she had not been feeling well with coughing, congestion, shortness of breath. Patient had workup done in found to have possible urinary tract infection and she was discharged home with Cipro and albuterol nebulizer. Patient had blood cultures taken at that time and apparently tested +4/4 with viridans streptococcus patient was notified and return to the hospital. Patient states that since she's been home she's been doing well. Denies any fever, chills. She has had some cough with some white phlegm production. Denies any shortness of breath, chest pain, abdominal pain, diarrhea, constipation. She states that she did try to take the medication Cipro however culture to have significant nausea and she did have vomiting. She was only able take 1 tablet daily. Patient was called back to the hospital and while in the emergency department she was given Levaquin IV and by mouth in which the patient states that she had significant nausea and vomiting. She also states that when they were infusing the vancomycin she also developed significant nausea and vomiting. She has also developed a rash on the hands and arms. She denies any shortness of breath, globus sensation, facial edema. Workup was done again in the emergency department and was found to have some mild left base consolidation developing. This could possibly be the etiology of her bacteremia. However patient was admitted with infectious disease consultation for further evaluation and management. Review of Systems Respiratory: COMPLAINS OF: Cough, Sputum production Gastrointestinal: COMPLAINS OF: Nausea, Vomiting Except as stated in HPI: all other systems reviewed are Neg Past Family Social History Past Medical History Hypertension Hyperlipidemia diabetes Asthma Gastroesophageal reflux Possible underlying thyroid tissue Past Surgical History Cholecystectomy Hysterectomy Sinus surgery Reported Medications Reported Meds & Active Scripts Active Levaquin (Levofloxacin) 500 Mg Tablet 500 Mg PO DAILY 7 Days Flowtuss Liq (Hydrocodone-Guaifenesin Liq) 2.5-200 Mg/5 Ml Soln 5 Ml PO Q6H PRN Zofran (Ondansetron HCl) 8 Mg Tab 8 Mg PO TID Guaifenesin AC Liq (Guaifenesin-Codeine Liq) 100-10 Mg/5 Ml Syrp 5 Ml PO Q6H PRN Amlactin (Lactic Acid (Ammonium Lactate)) 12 % Lot 1 Applic TOPICAL BID Duoneb (Ipratropium-Albuterol Neb) 0.5-2.5 Mg/3 Ml Neb 1 Nebule INH Q6HR NEB Reported Atorvastatin (Atorvastatin Calcium) 10 Mg Tab 10 Mg PO HS Aspirin 81 (Aspirin) 81 Mg Tabdr 81 Mg PO DAILY Albuterol Neb (Albuterol Sulfate) 2.5 Mg/0.5 Ml Neb 2.5 Mg NEB Q4HR NEB PRN Note: The Albuterol Sulfate Inhalation Solution is concentrated and must be diluted. Read complete instructions carefully before using. Symbicort Inh (Budesonide/Formoterol Fumarate) 80-4.5 Mcg/Act Aero 2 Puff INH Q12HR Flonase Nasal [place] (Fluticasone Nasal [place]) 50 Mcg/Act [place] 50 Mcg EACH NARE BID PRN Metformin (Metformin HCl) 500 Mg Tab 500 Mg PO BIDPC With meals Montelukast (Montelukast Sodium) 10 Mg Tab 10 Mg PO HS Allergies: Coded Allergies: gadodiamide (Unverified Allergy, Severe, Rash, 01/27/17) iodixanol (Unverified Allergy, Severe, Rash, 01/27/17) ceftriaxone (Unverified Allergy, Mild, RASH, 01/27/17) penicillin G (Unverified Allergy, Mild, Nausea/Vomiting, 01/27/17) Family History Reviewed is significant for father at 82 with high blood pressure, mother at age 52 from lung cancer and she also had hypertension Social History Patient denies any tobacco, alcohol or illicit drugs Physical Exam Vital Signs Vital Signs Date Time Temp Pulse Resp B/P (MAP) Pulse Ox O2 Delivery O2 Flow Rate FiO2 01/28/17 16:00 98.1 108 19 104/69 (81) 97 01/28/17 12:00 98.0 100 18 103/70 (81) 98 01/28/17 08:00 95.8 99 17 98/67 (77) 99 01/28/17 08:00 99 Nasal Cannula 1.00 01/28/17 07:45 98 Nasal Cannula 3.00 01/28/17 05:10 01/28/17 03:27 119 01/28/17 02:35 93 Nasal Cannula 2.00 01/28/17 02:14 93 Nasal Cannula 3.00 01/28/17 02:05 97.1 118 26 115/66 (82) 93 01/28/17 02:03 88 Nasal Cannula 2.00 01/28/17 00:17 96 Nasal Cannula 2.00 01/28/17 00:00 98.9 115 18 106/65 (79) 95 01/27/17 23:30 95 Nasal Cannula 2.00 01/27/17 22:40 98.6 122 28 104/63 (77) 90 Room Air 01/27/17 20:51 Room Air 01/27/17 19:03 Room Air Physical Exam GENERAL: Well-developed, well-nourished, in no acute distress. alert and orientated HEENT: Head is normocephalic without any lesions or masses noted. Facial features are symmetric. Eyes: Pupils equal round reactive to light. Extraocular muscles are intact. Conjunctivae were clear. Oropharyngeal: Pharynx without any erythema edema. Tongue is midline without deviation. Buccal mucosa is moist without any masses or lesions NECK: Supple without any masses. Trachea midline no deviation. No JVD, no bruits are appreciated CARDIAC: Regular rhythm, regular rate. S1/S2 are heard. No murmurs gallops or rubs. LUNGS: Clear to auscultation bilaterally. No wheeze, rhonchi or rales. No use of accessory muscles on inspiration or expiration. ABDOMEN: Soft, nontender. Nondistended. Bowel sounds heard in all 4 quadrants. No organomegaly or masses. Negative rebound, negative guarding EXTREMITIES: No edema, pulses are equal bilaterally. No cyanosis or clubbing NEUROLOGY: Mood and affect appear appropriate. Cranial nerves II through XII grossly intact. Muscle strength 5/5 in upper and lower extremities bilaterally. Deep tendon reflexes are 2+ in upper and lower extremities bilaterally. Laboratory Laboratory Tests Test 01/27/17 20:00 01/27/17 23:16 01/28/17 07:00 White Blood Count 7.0 4.5 Red Blood Count 3.93 3.72 Hemoglobin 12.5 11.6 Hematocrit 37.0 34.8 Mean Corpuscular Volume 94.2 93.6 Mean Corpuscular Hemoglobin 31.9 31.3 Mean Corpuscular Hemoglobin Concent 33.9 33.4 Red Cell Distribution Width 12.4 12.4 Platelet Count 327 327 Mean Platelet Volume 7.4 7.3 Neutrophils (%) (Auto) 37.0 85.2 Lymphocytes (%) (Auto) 41.7 12.0 Monocytes (%) (Auto) 4.4 1.5 Eosinophils (%) (Auto) 15.4 0.4 Basophils (%) (Auto) 1.5 0.9 Neutrophils # (Auto) 2.6 3.9 Lymphocytes # (Auto) 2.9 0.5 Monocytes # (Auto) 0.3 0.1 Eosinophils # (Auto) 1.1 0.0 Basophils # (Auto) 0.1 0.0 CBC Comment DIFF FINAL DIFF FINAL Differential Comment Blood Urea Nitrogen 20 21 Creatinine 0.88 0.97 Random Glucose 100 181 Total Protein 7.1 6.1 Albumin 3.4 2.9 Calcium Level 9.0 7.5 Alkaline Phosphatase 145 112 Aspartate Amino Transf (AST/SGOT) 58 29 Alanine Aminotransferase (ALT/SGPT) 43 29 Total Bilirubin 1.4 1.2 Sodium Level 144 143 Potassium Level 3.8 3.3 Chloride Level 109 110 Carbon Dioxide Level 25.9 22.1 Anion Gap 9 11 Estimat Glomerular Filtration Rate 77 69 Lipase 147 Blood Gas Puncture Site RT BRACHIAL Blood Gas Patient Temperature 98.6 Blood Gas HCO3 22 Blood Gas Base Excess -1.7 Blood Gas Oxygen Saturation 91 Arterial Blood pH 7.41 Arterial Blood Partial Pressure CO2 36 Arterial Blood Partial Pressure O2 69 Arterial Blood Oxygen Content 15.3 Arterial Blood Carboxyhemoglobin 1.6 Arterial Blood Methemoglobin 1.1 Blood Gas Hemoglobin 11.9 Oxygen Delivery Device ROOM AIR Blood Gas Inspired Oxygen 21 Date/Time Source Procedure Growth Status 01/27/17 23:05 Blood Peripheral Aerobic Blood Culture - Preliminary NO GROWTH IN 1 DAY Resulted 01/27/17 23:05 Blood Peripheral Anaerobic Blood Culture - Preliminary NO GROWTH IN 1 DAY Resulted 01/27/17 23:10 Nasal Washing Influenza Types A,B Antigen (DARIO) - Final NEGATIVE FOR FLU A AND B ANTIGEN.... Complete 01/28/17 07:28 Urine Random Urine Legionella Antigen - Final PRESUMPTIVE NEGATIVE FOR LEGIONELLA P... Complete 01/28/17 07:28 Urine Random Urine Streptococcus pneumoniae Antigen (M - Final PRESUMPTIVE NEGATIVE FOR STREPTOCOCCU... Complete Result Diagram: 01/28/17 0700 01/28/17 07 Imaging Last Impressions Chest X-Ray 01/27/171955 Signed Impressions: Service Date/Time: Sunday, January 27, 2017 20:01 - CONCLUSION: Mild left base consolidation developing. MD Tray Toribio VTE Risk Assessment Caprini VTE Risk Assessment: Mod/High Risk (score >= 2) Caprini Risk Assessment Model Point Value = 1 Point Value = 2 Point Value = 3 Point Value = 5 Age 41-60 Minor surgery BMI > 25 kg/m2 Swollen legs Varicose veins or History of unexplained or recurrent spontaneous Oral contraceptives or hormone replacement Sepsis (< 1 month) Serious lung disease, including pneumonia (< 1 month) Abnormal pulmonary function Acute myocardial infarction Congestive heart failure (< 1 month) History of inflammatory bowel disease Medical patient at bed rest Age 61-74 Arthroscopic surgery Major open surgery (> 45 min) Laparoscopic surgery (> 45 min) Malignancy Confined to bed (> 72 hours) Immobilizing plaster cast Central venous access Age >= 75 History of VTE Family history of VTE Factor V Leiden Prothrombin [id number] Lupus anticoagulant Anticardiolipin antibodies Elevated serum homocysteine Heparin-induced thrombocytopenia Other congenital or acquired thrombophilia Stroke (< 1 month) Elective arthroplasty Hip, pelvis, or leg fracture Acute spinal cord injury (< 1 month) Prophylaxis Regimen Total Risk Factor Score Risk Level Prophylaxis Regimen 0-1 Low Early ambulation 2 Moderate Order ONE of the following: *Sequential Compression Device (SCD) *Heparin 5000 units SQ BID 3-4 Higher Order ONE of the following medications: *Heparin 5000 units SQ TID *Enoxaparin/Lovenox 40 mg SQ daily (WT < 150 kg, CrCl > 30 mL/min) *Enoxaparin/Lovenox 30 mg SQ daily (WT < 150 kg, CrCl > 10-29 mL/min) *Enoxaparin/Lovenox 30 mg SQ BID (WT < 150 kg, CrCl > 30 mL/min) AND/OR *Sequential Compression Device (SCD) 5 or more Highest Order ONE of the following medications: *Heparin 5000 units SQ TID (Preferred with Epidurals) *Enoxaparin/Lovenox 40 mg SQ daily (WT < 150 kg, CrCl > 30 mL/min) *Enoxaparin/Lovenox 30 mg SQ daily (WT < 150 kg, CrCl > 10-29 mL/min) *Enoxaparin/Lovenox 30 mg SQ BID (WT < 150 kg, CrCl > 30 mL/min) AND *Sequential Compression Device (SCD) Assessment and Plan Assessment and Plan Bacteremia Patient with previous blood cultures on 01/20/17 with 4/4 positive viridans Streptococcus Follow blood cultures have been taken have negative for 1 day at this time. Patient's urine culture at the time showed 50-100,000 mixed gram-positive cocci Chest x-ray at this time does indicate developing consolidation Patient with possible reaction to vancomycin, Cipro, Levaquin. With rash, nausea vomiting Started Azactam Infectious disease has been consulted for further recommendations Hypertension, hyperlipidemia home medications have been continued Diabetes Accu-Cheks with sliding scale insulin DVT prevention Sequential compression devices This note was transcribed by rocio Colin. I, Dr. Tashi Stacy personally performed the history, physical exam, and medical decision making; and confirmed the accuracy of the information in the transcribed note. Authenticated by Dr. Tashi Stacy on 01/28/17 at 17:55 Physician Certification 2 Midnight Certification Type: Admission for Inpatient Services Order for Inpatient Services The services are ordered in accordance with Medicare regulations or non- Medicare payer requirements, as applicable. In the case of services not specified as inpatient-only, they are appropriately provided as inpatient services in accordance with the 2-midnight benchmark. Estimated LOS (days): 2 days is the estimated time the patient will need to remain in the hospital, assuming treatment plan goals are met and no additional complications. Post-Hospital Plan: Not yet determined Sridhar Colin Jan 28, 2017 17:50 Tashi Olivas MD Jan 28, 2017 18:23
[2017-01-28] MEDS ORDERED: VANCOMYCIN 1,000 MG/NS 250 ML IV SCH ×2 (18:00)
[2017-01-28] MEDS: ATORVASTATIN 10 MG TAB PO SCH (21:56)
[2017-01-28] MEDS: MONTELUKAST SODIUM 10 MG TAB PO SCH (21:56)
[2017-01-28] MEDS ORDERED: LEVOFLOXACIN 750 MG PREMIX INJ 150 ML IV SCH (23:00)
[2017-01-29] VITALS (9 sets, daily range): BP systolic 112–125; BP diastolic 73–84; PULSE 100–120; RESP 20; TEMP 96.1–98.8; O2SAT 93–99
[2017-01-29] MEDS: AZTREONAM INJ 2,000 MG in SODIUM CHLORIDE 0.9% INJ 100 ML IV SCH ×2 (06:07→14:07)
[2017-01-29] MEDS: ASPIRIN EC 81 MG TABEC PO SCH (08:42)
[2017-01-29] MEDS: BUDESONIDE-FORMOTEROL 80/4.5 MCG INHALER INH SCH ×2 (08:43→23:48)
[2017-01-29] MEDS: SODIUM CHLORIDE 0.9% FLUSH 10 ML FLUSH IV FLUSH SCH ×2 (08:43→23:48)
[2017-01-29] MEDS: DOCUSATE SODIUM 50 MG/SENNA 8.6 MG TAB PO SCH ×2 (08:43→21:00)
[2017-01-29] MEDS: RESP: ALBUTEROL 2.5 MG/IPRATROPIUM 0.5 MG NEB (PRN) INH ×3 (09:00→19:46)
[2017-01-29] MEDS: INSULIN ASPART SUPPLEMENTAL SCALE SQ SCH ×4 (09:12→21:00)
[2017-01-29] MEDS: guaiFENesin/CODEINE SYRUP 200 MG/20 MG/10 ML CUP PO PRN ×2 (09:21→18:23)
[2017-01-29] MEDS ORDERED: POTASSIUM CHLORIDE 10 MEQ CONTROLLED RELEASE TAB PO ONE (11:00)
--- NOTE | 2017-01-29 11:18 | PD.ID.CON ---
History of Present Illness Service Infectious disease Consult Requested By Dr. Galvan Reason for Consult Evaluation and management of strep viridans bacteremia. Primary Care Physician Da Ramires M.D. Diagnoses: History of Present Illness Ms. Nunez is a 66-year-old female with past medical history significant for GERD, esophagitis, hypertension, hyperlipidemia and diabetes, asthma. Patient initially presented to hospital on January 20, 2017 when she was not feeling well had coughing, congestion and shortness of breath. Patient reports to me that she had nausea and vomiting prior to this episode of coughing. Urine and blood cultures were done and blood cultures were negative and patient was discharged on oral Cipro and albuterol nebulizer. Patient had blood cultures taken at that time which grew 4 out of 4 strep viridans and patient was notified to come back to the hospital for further workup and evaluation. Patient states that since she's been home she's been doing well. Denies any fever, chills. She has had some cough with some white phlegm production. Denies any shortness of breath, chest pain, abdominal pain, diarrhea, constipation. She states that she did try to take the medication Cipro however due to significant nausea and vomiting. She was only able take 1 tablet daily. Patient was called back to the hospital and while in the emergency department she was given Levaquin IV and by mouth in which the patient states that she had significant nausea and vomiting. She also states that when they were infusing the vancomycin she also developed significant nausea and vomiting. She has also developed a rash on the hands and arms. She denies any shortness of breath , globus sensation, facial edema. ID is consulted for evaluation and management of strep viridans bacteremia. Review of Systems ROS Limitations: Poor Historian Constitutional: DENIES: Diaphoretic episodes, Fatigue, Fever, Weight gain, Weight loss, Chills, Dizziness, Change in appetite, Night Sweats Endocrine: DENIES: Abnorml menstrual pattern, Heat/cold intolerance, Polydipsia , Polyuria, Polyphagia Eyes: DENIES: Blurred vision, Diplopia, Eye inflammation, Eye pain, Vision loss , Photosensitivity, Double Vision Ears, nose, mouth, throat: DENIES: Tinnitus, Hearing loss, Vertigo, Nasal discharge, Oral lesions, Throat pain, Hoarseness, Ear Pain, Running Nose, Epistaxis, Sinus Pain, Toothache, Odynophagia Respiratory: DENIES: Apneas, Cough, Snoring, Wheezing, Hemoptysis, Sputum production, Shortness of breath Cardiovascular: DENIES: Chest pain, Palpitations, Syncope, Dyspnea on Exertion , PND, Lower Extremity Edema, Orthopnea, Claudication Gastrointestinal: COMPLAINS OF: Nausea, Vomiting, DENIES: Abdominal pain, Black stools, Bloody stools, Constipation, Diarrhea, Difficulty Swallowing, Anorexia Genitourinary: DENIES: Abnormal vaginal bleeding, Dysmenorrhea, Dyspareunia, Sexual dysfunction, Urinary frequency, Urinary incontinence, Urgency, Hematuria , Dysuria, Nocturia, Vaginal discharge Musculoskeletal: DENIES: Joint pain, Muscle aches, Stiffness, Joint Swelling, Back pain, Neck pain Integumentary: DENIES: Abnormal pigmentation, Pruritus, Rash, Nail changes, Breast masses, Breast skin changes, Nipple discharge Hematologic/lymphatic: DENIES: Bruising, Lymphadenopathy Immunologic/allergic: DENIES: Eczema, Urticaria Neurologic: DENIES: Abnormal gait, Headache, Localized weakness, Paresthesias, Seizures, Speech Problems, Tremor, Poor Balance Psychiatric: DENIES: Anxiety, Confusion, Mood changes, Depression, Hallucinations, Agitation, Suicidal Ideation, Homicidal Ideation, Delusions Except as stated in HPI: all other systems reviewed are Neg Flat affect drafita Emerson Past Family Social History Allergies: Coded Allergies: gadodiamide (Unverified Allergy, Severe, Rash, 01/27/17) iodixanol (Unverified Allergy, Severe, Rash, 01/27/17) ceftriaxone (Unverified Allergy, Mild, RASH, 01/27/17) penicillin G (Unverified Allergy, Mild, Nausea/Vomiting, 01/27/17) Past Medical History Hypertension Hyperlipidemia diabetes Asthma Gastroesophageal reflux Possible underlying thyroid tissue Past Surgical History Cholecystectomy Hysterectomy Sinus surgery Reported Medications Reported Meds & Active Scripts Active Levaquin (Levofloxacin) 500 Mg Tablet 500 Mg PO DAILY 7 Days Flowtuss Liq (Hydrocodone-Guaifenesin Liq) 2.5-200 Mg/5 Ml Soln 5 Ml PO Q6H PRN Zofran (Ondansetron HCl) 8 Mg Tab 8 Mg PO TID Guaifenesin AC Liq (Guaifenesin-Codeine Liq) 100-10 Mg/5 Ml Syrp 5 Ml PO Q6H PRN Amlactin (Lactic Acid (Ammonium Lactate)) 12 % Lot 1 Applic TOPICAL BID Duoneb (Ipratropium-Albuterol Neb) 0.5-2.5 Mg/3 Ml Neb 1 Nebule INH Q6HR NEB Reported Atorvastatin (Atorvastatin Calcium) 10 Mg Tab 10 Mg PO HS Aspirin 81 (Aspirin) 81 Mg Tabdr 81 Mg PO DAILY Albuterol Neb (Albuterol Sulfate) 2.5 Mg/0.5 Ml Neb 2.5 Mg NEB Q4HR NEB PRN Note: The Albuterol Sulfate Inhalation Solution is concentrated and must be diluted. Read complete instructions carefully before using. Symbicort Inh (Budesonide/Formoterol Fumarate) 80-4.5 Mcg/Act Aero 2 Puff INH Q12HR Flonase Nasal [place] (Fluticasone Nasal [place]) 50 Mcg/Act [place] 50 Mcg EACH NARE BID PRN Metformin (Metformin HCl) 500 Mg Tab 500 Mg PO BIDPC With meals Montelukast (Montelukast Sodium) 10 Mg Tab 10 Mg PO HS Active Ordered Medications Current Medications Medications (Trade) Dose Ordered Sig/Harvey Route Start Time Stop Time Status Last Admin (D50w (Vial) Inj) 50 ml UNSCH PRN IV 01/27/17 23:15 (Glucagon Inj) 1 mg UNSCH PRN OTHER 01/27/17 23:15 (NovoLOG SUPPLEMENTAL SCALE) 1 ACHS SLIDING SCALE SQ 01/28/17 08:00 01/29/17 09:12 (NS Flush) 2 ml UNSCH PRN IV FLUSH 01/27/17 23:15 (NS Flush) 2 ml BID IV FLUSH 01/28/17 09:00 01/29/17 08:43 (Zofran Inj) 4 mg Q6H PRN IVP 01/27/17 23:15 (Tylenol) 650 mg Q6H PRN PO 01/27/17 23:15 (Morphine Inj) 2 mg Q3H PRN IV PUSH 01/27/17 23:15 (Roxicodone) 5 mg Q4H PRN PO 01/27/17 23:15 01/28/17 22:12 (Lupe-Colace) 1 tab BID PO 01/28/17 09:00 01/29/17 08:43 (Milk Of Magnesia Liq) 30 ml Q12H PRN PO 01/27/17 23:15 (Senokot) 17.2 mg Q12H PRN PO 01/27/17 23:15 (Dulcolax Supp) 10 mg DAILY PRN RECTAL 01/27/17 23:15 (Lactulose Liq) 30 ml DAILY PRN PO 01/27/17 23:15 (Ecotrin Ec) 81 mg DAILY PO 01/28/17 09:00 01/29/17 08:42 (Lipitor) 10 mg HS PO 01/28/17 21:00 01/28/17 21:56 (Symbicort 80-4.5 Mcg Inh) 2 puff Q12HR INH 01/28/17 09:00 01/29/17 08:43 (Robitussin Ac 200-20 Mg/10 ml Liq) 5 ml Q6H PRN PO 01/27/17 23:15 01/29/17 09:21 (Duoneb Neb) 1 ampule Q4HR NEB PRN INH 01/27/17 23:15 01/29/17 13:48 (Singulair) 10 mg HS PO 01/28/17 21:00 01/28/17 21:56 Miscellaneous Information SPECIFIC LAB TO BE DRAWN:VANCOMY... ONCE ONCE .XX 01/30/17 05:45 01/30/17 05:46 Aztreonam 2000 mg/ Sodium Chloride 100 ml @ 200 mls/hr Q8H IV 01/28/17 15:00 01/29/17 06:07 Family History Reviewed is significant for father at 82 with high blood pressure, mother at age 52 from lung cancer and she also had hypertension Social History Patient denies any tobacco, alcohol or illicit drugs Physical Exam Vital Signs Vital Signs Date Time Temp Pulse Resp B/P (MAP) Pulse Ox O2 Delivery O2 Flow Rate FiO2 01/29/17 09:02 96 21 01/29/17 08:00 97.9 106 20 124/76 (92) 96 01/29/17 04:00 98.2 105 20 112/73 (86) 95 01/29/17 00:00 98.6 115 20 120/75 (90) 93 01/28/17 22:00 118 01/28/17 20:51 94 21 01/28/17 20:00 98.0 115 20 126/78 (94) 95 01/28/17 16:00 98.1 108 19 104/69 (81) 97 01/28/17 12:00 98.0 100 18 103/70 (81) 98 Physical Exam GENERAL: This is a well-nourished, well-developed patient, in no apparent distress. SKIN: No rashes, ecchymoses or lesions. Cool and dry. HEAD: Atraumatic. Normocephalic. No temporal or scalp tenderness. EYES: Pupils equal round and reactive. Extraocular motions intact. No scleral icterus. No injection or drainage. ENT: Nose without bleeding, purulent drainage or septal hematoma. Throat without erythema, tonsillar hypertrophy or exudate. Uvula midline. Airway patent. NECK: Trachea midline. Supple, nontender, no meningeal signs. CARDIOVASCULAR: Regular rate and rhythm without murmurs, gallops, or rubs. RESPIRATORY: Clear to auscultation. Breath sounds equal bilaterally. No wheezes , rales, or rhonchi. GASTROINTESTINAL: Abdomen soft, non-tender, nondistended. No epigastric tenderness. MUSCULOSKELETAL: Extremities without clubbing, cyanosis, or edema. No joint tenderness, effusion, or edema noted. No calf tenderness. Negative Homans sign bilaterally. NEUROLOGICAL: Awake and alert. Grossly non focal Psych cooperative, flat affect. IV line sites with no e.o infection Laboratory Date/Time Source Procedure Growth Status 01/27/17 23:05 Blood Peripheral Aerobic Blood Culture - Preliminary NO GROWTH IN 2 DAYS Resulted 01/27/17 23:05 Blood Peripheral Anaerobic Blood Culture - Preliminary NO GROWTH IN 2 DAYS Resulted 01/27/17 23:10 Nasal Washing Influenza Types A,B Antigen (DARIO) - Final NEGATIVE FOR FLU A AND B ANTIGEN.... Complete 01/28/17 07:28 Urine Random Urine Legionella Antigen - Final PRESUMPTIVE NEGATIVE FOR LEGIONELLA P... Complete 01/28/17 07:28 Urine Random Urine Streptococcus pneumoniae Antigen (M - Final PRESUMPTIVE NEGATIVE FOR STREPTOCOCCU... Complete Result Diagram: 01/28/17 0700 01/28/17 0700 Imaging Last Impressions Chest X-Ray 01/27/171955 Signed Impressions: Service Date/Time: Friday, January 27, 2017 20:01 - CONCLUSION: Mild left base consolidation developing. Gustavo Anderson MD Assessment and Plan Assessment and Plan Strep viridans bacteremia persistent Pneumonia, r/o septic emboli. ? Aspiration related to N/Vomiting. Nausea prior to admission even prior to antibiotics. H/o GERD, esophagitis ? cause for Strep viridans bacteremia. Intolerance to antibiotics: likely related to GERD or GI issues. Once addressed please reassess allergy section of [facility]. Recs DC Aztreonam Start Levaquin IV Start Vanco IV (target 15-20) for possible resistant Strep viridans pending susceptibility. Check 2D ECHO Check CT C/A/P with contrast r/o disseminated infection Consult GI: persistent N/V in patient with GERD. Strep viridans ? GI origin. Evaluate for EGD and colonoscopy. Start Carafate. Follow cultures Follow clinically. d/w . Dr.Reba Mccormick and other ID MDs to follow for me starting tomorrow. Kristal Painting MD Jan 29, 2017 11:18
[2017-01-29] MEDS ORDERED: diphenhydrAMINE HCL 50 MG/ML VIAL IV PRN (14:30)
[2017-01-29] MEDS: LEVOFLOXACIN 750 MG PREMIX INJ 150 ML IV SCH (14:52)
[2017-01-29] MEDS ORDERED: Vancomycin Consult Pharmacy 1 EA OTHER SCH (15:00)
--- NOTE | 2017-01-29 15:56 | HHI.PR ---
Subjective Remarks Patient has no complaints Denies cp/sob denies fevers or chills states nausea has improved still c/o some itchiness Objective Vitals Vital Signs Date Time Temp Pulse Resp B/P (MAP) Pulse Ox O2 Delivery O2 Flow Rate FiO2 01/29/17 12:00 97.5 101 20 118/82 (94) 96 01/29/17 09:02 96 21 01/29/17 08:00 97.9 106 20 124/76 (92) 96 01/29/17 04:00 98.2 105 20 112/73 (86) 95 01/29/17 00:00 98.6 115 20 120/75 (90) 93 01/28/17 22:00 118 01/28/17 20:51 94 21 01/28/17 20:00 98.0 115 20 126/78 (94) 95 01/28/17 16:00 98.1 108 19 104/69 (81) 97 I/O 01/28/17 01/28/17 01/28/17 01/29/17 01/29/17 01/29/17 07:00 15:00 23:00 07:00 15:00 23:00 Intake Total 200 ml 850 ml 300 ml 460 ml Balance 200 ml 850 ml 300 ml 460 ml Intake Oral 850 ml 360 ml IV Total 200 ml 300 ml 100 ml # Voids 0 5 5 # Bowel Movements 1 1 Result Diagram: 01/28/17 0701/28/17 0700 Imaging Last Impressions Chest X-Ray 01/27/171955 Signed Impressions: Service Date/Time: Friday, January 27, 2017 20:01 - CONCLUSION: Mild left base consolidation developing. Gustavo Anderson MD Objective Remarks GENERAL: Well-developed, well-nourished, in no acute distress. alert and orientated HEENT: Head is normocephalic without any lesions or masses noted. Facial features are symmetric. Eyes: Pupils equal round reactive to light. Extraocular muscles are intact. Conjunctivae were clear. Oropharyngeal: Pharynx without any erythema edema. Tongue is midline without deviation. Buccal mucosa is moist without any masses or lesions NECK: Supple without any masses. Trachea midline no deviation. No JVD, no bruits are appreciated CARDIAC: Regular rhythm, regular rate. S1/S2 are heard. No murmurs gallops or rubs. LUNGS: Clear to auscultation bilaterally. No wheeze, rhonchi or rales. No use of accessory muscles on inspiration or expiration. ABDOMEN: Soft, nontender. Nondistended. Bowel sounds heard in all 4 quadrants. No organomegaly or masses. Negative rebound, negative guarding EXTREMITIES: No edema, pulses are equal bilaterally. No cyanosis or clubbing NEUROLOGY: Mood and affect appear appropriate. Cranial nerves II through XII grossly intact. Muscle strength 5/5 in upper and lower extremities bilaterally. Deep tendon reflexes are 2+ in upper and lower extremities bilaterally. Medications and IVs Current Medications Medications (Trade) Dose Ordered Sig/Harvey Route Start Time Stop Time Status Last Admin (D50w (Vial) Inj) 50 ml UNSCH PRN IV 01/27/17 23:15 (Glucagon Inj) 1 mg UNSCH PRN OTHER 01/27/17 23:15 (NovoLOG SUPPLEMENTAL SCALE) 1 ACHS SLIDING SCALE SQ 01/28/17 08:00 01/29/17 16:53 (NS Flush) 2 ml UNSCH PRN IV FLUSH 01/27/17 23:15 (NS Flush) 2 ml BID IV FLUSH 01/28/17 09:00 01/29/17 08:43 (Zofran Inj) 4 mg Q6H PRN IVP 01/27/17 23:15 (Tylenol) 650 mg Q6H PRN PO 01/27/17 23:15 (Morphine Inj) 2 mg Q3H PRN IV PUSH 01/27/17 23:15 (Roxicodone) 5 mg Q4H PRN PO 01/27/17 23:15 01/28/17 22:12 (Lupe-Colace) 1 tab BID PO 01/28/17 09:00 01/29/17 08:43 (Milk Of Magnesia Liq) 30 ml Q12H PRN PO 01/27/17 23:15 (Senokot) 17.2 mg Q12H PRN PO 01/27/17 23:15 (Dulcolax Supp) 10 mg DAILY PRN RECTAL 01/27/17 23:15 (Lactulose Liq) 30 ml DAILY PRN PO 01/27/17 23:15 (Ecotrin Ec) 81 mg DAILY PO 01/28/17 09:00 01/29/17 08:42 (Lipitor) 10 mg HS PO 01/28/17 21:00 01/28/17 21:56 (Symbicort 80-4.5 Mcg Inh) 2 puff Q12HR INH 01/28/17 09:00 01/29/17 08:43 (Robitussin Ac 200-20 Mg/10 ml Liq) 5 ml Q6H PRN PO 01/27/17 23:15 01/29/17 09:21 (Duoneb Neb) 1 ampule Q4HR NEB PRN INH 01/27/17 23:15 01/29/17 13:48 (Singulair) 10 mg HS PO 01/28/17 21:00 01/28/17 21:56 (Carafate Liq) 1 gm ACHS PO 01/29/17 17:00 01/29/17 16:39 Levofloxacin/ Dextrose 150 ml @ 100 mls/hr Q24H IV 01/29/17 15:00 01/29/17 14:52 Pharmacy Profile Note 0 ml @ 0 mls/hr UNSCH OTHER 01/29/17 15:00 (Benadryl Inj) 25 mg Q4H PRN IV 01/29/17 14:30 Vancomycin HCl 1000 mg/Sodium Chloride 250 ml @ 250 mls/hr Q18H IV 01/29/17 16:00 01/29/17 16:32 Miscellaneous Information SPECIFIC LAB TO BE DRAWN:VANCOMY... ONCE ONCE .XX 01/31/17 21:45 01/31/17 21:46 (Deltasone) 50 mg Q6H PO 01/29/17 20:00 01/30/17 08:01 (Benadryl) 50 mg ONCE ONCE PO 01/30/17 08:00 01/30/17 08:01 Urinary Catheter: No Vascular Central Line Catheter: No A/P Problem List: (1) Bacteremia ICD Code: R78.81 - Bacteremia Assessment and Plan Bacteremia Patient with previous blood cultures on 01/20/17 with 4/4 positive viridans Streptococcus Follow blood cultures have been taken have negative for 1 day at this time. Patient's urine culture at the time showed 50-100,000 mixed gram-positive cocci Chest x-ray at this time does indicate developing consolidation Patient with possible reaction to vancomycin, Cipro, Levaquin. With rash, nausea vomiting Started Azactam Infectious disease has been consulted for further recommendations 01/29 I discussed the case at length with Dr. Kristal Painting from infectious disease. Nausea possibly coming from GI origin. GI consulted. Aztreonam discontinued and the patient started on Levaquin IV. Patient also started on Vanco IV with a target of 15-24 possible resistant strep viridans pending susceptibility. Check CT of the chest abdomen and pelvis with contrast to rule out disseminated infection. Start Carafate. Hypertension, hyperlipidemia home medications have been continued Blood pressure seems to be stable Diabetes Accu-Cheks with sliding scale insulin Blood sugar seems to be stable. Continue Lipitor. Follow-up lipid profile as an outpatient. Persistent nausea Consult GI. Continue Zofran as needed for nausea. Suspect likely related to GERD or peptic ulcer disease. I will also start the patient on Protonix. DVT prevention Sequential compression devices Tashi Olivas MD Jan 29, 2017 15:56
[2017-01-29] MEDS: VANCOMYCIN 1,000 MG/NS 250 ML IV SCH ×2 (16:32)
[2017-01-29] MEDS: SUCRALFATE 1 GM/10 ML CUP PO SCH ×2 (16:39→23:48)
[2017-01-29] MEDS ORDERED: PEG (High)/E-LYTE SOLN 4000 ML BTL PO ONE (19:00)
[2017-01-29] MEDS ORDERED: predniSONE 50 MG TAB PO SCH (20:00)
[2017-01-29] MEDS: MONTELUKAST SODIUM 10 MG TAB PO SCH (23:48)
[2017-01-29] MEDS: ATORVASTATIN 10 MG TAB PO SCH (23:52)
[2017-01-30] VITALS (10 sets, daily range): BP systolic 108–129; BP diastolic 71–81; PULSE 77–105; RESP 16–20; TEMP 96.4–98.6; O2SAT 96–100
[2017-01-30] MEDS: predniSONE 50 MG TAB PO SCH ×3 (00:25→10:55)
[2017-01-30] MEDS ORDERED: VANCOMYCIN TROUGH ONE (05:45)
[2017-01-30] MEDS ORDERED: LACTATED RINGER'S 1000 ML IV PRN (06:00)
[2017-01-30] MEDS ORDERED: PHARMACY ORDERED LAB ONE (06:45)
[2017-01-30] MEDS ORDERED: PROPOFOL 200 MG/20 ML AMP IV ONE (07:47)
--- NOTE | 2017-01-30 07:51 | GIPROC ---
[facility] [address] [place] [address], [id number] EGD PROCEDURE REPORT EXAM DATE: 01/30/2017 PATIENT NAME: Mel Nunez MR #: [id number] BIRTHDATE: 1950 ATTENDING: Pat Pemberton MD ORDER #: [id number] FORKLIFT TECHNICIAN: Lebron West and Hortencia Brewster STATUS: inpatient INDICATIONS: The patient is a 66 yr old female here for an EGD due to vomiting and nausea PROCEDURE PERFORMED: EGD w/ biopsy MEDICATIONS: None and Per Anesthesia. TOPICAL ANESTHETIC: none CONSENT: The patient understands the risks and benefits of the procedure and understands that these risks include, but are not limited to: sedation, allergic reaction, infection, perforation and/or bleeding. Alternative means of evaluation and treatment include, among others: physical exam, x-rays, and/or surgical intervention. The patient elects to proceed with this endoscopic procedure. medical equipment was checked for proper function. Hand hygiene and appropriate measures for infection prevention was taken. After the risks, benefits and alternatives of the procedure were thoroughly explained, Informed consent was verified, confirmed and timeout was successfully executed by the treatment team. The patient was anesthetized with topical anesthesia and the EC-[id number] (Pedi C) and [id number] endoscope was introduced through the mouth and advanced to the second portion of the duodenum. Retroflexed views revealed no abnormalities The gastroscope was then slowly withdrawn and removed. Mild gastritis with nodularity in the antrum, biopsy was done. The endoscopy was otherwise normal. ADVERSE EVENTS: There were no complications. IMPRESSIONS: 1. Mild gastritis with nodularity in the antrum, biopsy was done 2. Normal endoscopy otherwise 3. Retroflexed views revealed no abnormalities RECOMMENDATIONS: 1. Await biopsy results. Biopsy results will not be ready for 7-10 days. If you don't hear from us in two weeks, call our office for biopsy results. 2. Anti-reflux regimen 3. Continue PPI 4. Avoid NSAIDS PATIENT CONDITION: stable DISPOSITION: Inpatient REPEAT EXAM: Return as needed for EGD Pat Pemberton MD eSigned: Pat Pemberton MD 01/30/2017 7:51 AM cc:
--- NOTE | 2017-01-30 07:55 | GIPROC ---
[facility] [address] [place] [address], [id number] COLONOSCOPY PROCEDURE REPORT EXAM DATE: 01/30/2017 PATIENT NAME: Mel Nunez MR #: [id number] BIRTHDATE: 1950 ENDOSCOPIST: Pat Pemberton MD ORDER #: [id number] PHARMACEUTICAL PHYSICIAN: Lebron West and Hortencia Brewster STATUS: inpatient INDICATIONS: The patient is a 66 yr old female here for a colonoscopy due to average risk patient for colon cancer and patient has a blood culture positive for strep veridens PROCEDURE PERFORMED: Colonoscopy with ablation Colonoscopy with polypectomy MEDICATIONS: None and Per Anesthesia. PREP QUALITY: good ESTIMATED BLOOD LOSS: None CONSENT: The patient understands the risks and benefits of the procedure and understands that these risks include, but are not limited to: sedation, allergic reaction, infection, perforation and/or bleeding. Alternative means of evaluation and treatment include, among others: physical exam, x-rays, and/or surgical intervention. The patient elects to proceed with this endoscopic procedure. medical equipment was checked for proper function. Hand hygiene and appropriate measures for infection prevention was taken. After the risks, benefits and alternatives of the procedure were thoroughly explained, Informed consent was verified, confirmed and timeout was successfully executed by the treatment team. A digital exam revealed no abnormalities of the rectum The Pentax EC-3490Li and [id number] endoscope was introduced through the anus and advanced to the cecum, which was identified by both the appendix and ileocecal valve. The instrument was then slowly withdrawn as the colon was fully examined. COLON FINDINGS: 4 polyps in the cecum one removed by snare and the ablated with heat because it was less than 5 mm One polyp in the ascending colon ablated with heat One polyp in the ascending colon removed by snare. 1 cm polyp in the sigmoid removed by snare. The colon mucosa was otherwise normal. Retroflexed views revealed no abnormalities The scope was then completely withdrawn from the patient and the procedure terminated. ADVERSE EVENTS: There were no complications. IMPRESSIONS: 1. 4 polyps in the cecum one removed by snare and the ablated with heat because it was less than 5 mm One polyp in the ascending colon ablated with heat One polyp in the ascending colon removed by snare 2. 1 cm polyp in the sigmoid removed by snare 3. The colon mucosa was otherwise normal 4. Retroflexed views revealed no abnormalities 5. Revealed no abnormalities of the rectum RECOMMENDATIONS: 1. Await biopsy results. Biopsy results will not be ready for 7-10 days. If you don't hear from us in two weeks, call our office for results. 2. High fiber diet 3. Yearly hemoccult RECALL: Return 3 years Colonoscopy Pat Pemberton MD eSigned: Pat Pemberton MD 01/30/2017 7:55 AM cc: PATIENT NAME: Mel Nunez MR#: [id number]
[2017-01-30] MEDS ORDERED: RESP: ALBUTEROL 2.5 MG/3 ML NEB (PRN) ONE (07:59)
[2017-01-30] MEDS: SUCRALFATE 1 GM/10 ML CUP PO SCH ×4 (08:00→22:13)
[2017-01-30] MEDS ORDERED: diphenhydrAMINE HCL 50 MG CAP PO ONE ×2 (08:00→11:00)
[2017-01-30] MEDS: INSULIN ASPART SUPPLEMENTAL SCALE SQ SCH ×4 (08:45→21:00)
[2017-01-30] MEDS: DOCUSATE SODIUM 50 MG/SENNA 8.6 MG TAB PO SCH ×2 (09:00→21:00)
[2017-01-30] MEDS ORDERED: DIATRIZOATE MEGLUM/DIATRIZOATE SOD 9 ML CUP PO ONE (09:00)
[2017-01-30] MEDS: ASPIRIN EC 81 MG TABEC PO SCH (10:20)
[2017-01-30] MEDS: VANCOMYCIN 1,000 MG/NS 250 ML IV SCH ×2 (10:22)
[2017-01-30] MEDS: SODIUM CHLORIDE 0.9% FLUSH 10 ML FLUSH IV FLUSH SCH ×2 (10:33→22:13)
[2017-01-30] MEDS: BUDESONIDE-FORMOTEROL 80/4.5 MCG INHALER INH SCH ×2 (10:33→22:12)
[2017-01-30] MEDS: PANTOPRAZOLE SOD 40 MG DELAYED RELEASE TAB PO SCH (11:54)
[2017-01-30] MEDS ORDERED: IOHEXOL 350 MG/ML 10 ML VIAL (for RAD DIAG) IVCONTRAST ONE (12:10)
[2017-01-30] MEDS: METFORMIN HOLD POST IV CONTRAST SCH (12:10)
[2017-01-30 12:25] LABS: ALKALINE PHOSPHATASE 113 U/L (45-117); ALT (GPT) 29 U/L (10-53); ANION GAP 9 MEQ/L (5-15); AST (GOT) 24 U/L (15-37); BICARBONATE 29.5 MEQ/L (21.0-32.0); BLOOD UREA NITROGEN 15 MG/DL (7-18); CHLORIDE 102 MEQ/L (98-107); GLOMERULAR FILTRATION RATE 79 ML/MIN (>89); POTASSIUM 3.7 MEQ/L (3.5-5.1); SODIUM (NA) 140 MEQ/L (136-145); TOTAL BILIRUBIN ADULT 0.8 MG/DL (0.2-1.0)
--- NOTE | 2017-01-30 12:42 | RADRPT ---
EXAM DATE/TIME: 01/30/2017 12:08 [facility] COMPARISON: No previous studies available for comparison. INDICATIONS : Cough, congestion, and short of breath. Bacteremia with left lower lobe pneumonia. Evaluate for septi c emboli. IV CONTRAST: 95 cc Omnipaque 350 (iohexol) IV ; Cumulative dose for multiple exams. RADIATION DOSE: 13.94 CTDIvol (mGy) ; Combined studies - Thorax/Abdomen/Pelvis MEDICAL HISTORY : Hypertension. Gastroesophageal reflux disease. Diabetes. Asthma. SURGICAL HISTORY : section. Cholecystectomy.Hysterectomy. ENCOUNTER: Initial ACUITY: 3 days PAIN SCALE: 0/10 LOCATION: chest Patient was premedicated for underlying contrast media allergy. TECHNIQUE: Volumetric scanning of the chest was performed. Using automated exposure control and adjustment of t he mA and/or kV according to patient size, radiation dose was kept as low as reasonably achievable to obtain optimal diagnostic quality images. DICOM format image data is available electronically for review and comparison. Follow-up recommendations for detected pulmonary nodules are based at a minimum on nodule size and pa tient risk factors according to Fleischner Society Guidelines. FINDINGS: LUNGS: There are some scattered groundglass parenchymal densities in the upper lobes and along the superior bronchovascular bundles. PLEURA: There is no pleural thickening or pleural effusion. MEDIASTINUM: The heart and great vessels demonstrate no acute abnormality. There is no hilar lymphadenopathy. Pro minent right paratracheal adenopathy measures 1.2 cm in short axis. There is enlargement of the pulmo nary trunk. Left ventricle is dilated. AXILLAE: Within normal limits. No lymphadenopathy. SKELETAL: Within normal limits for patient age. MISCELLANEOUS: The visualized upper abdominal organs demonstrate no acute abnormality. CONCLUSION: 1. Scattered nonspecific parenchymal densities and groundglass densities in the upper lobes and along the bronchovascular bundles. 2. No septic emboli. 3. Enlargement of the pulmonary trunk which can be seen with pulmonary arterial hypertension. 4. Borderline prominence right paratracheal adenopathy measures 1.2 cm. 5. Dilated left ventricle. Shar Hubbard MD on January 30, 2017 at 12:34 Board Certified Radiologist. This report was verified electronically.
--- NOTE | 2017-01-30 12:49 | RADRPT ---
EXAM DATE/TIME: 01/30/2017 12:08 [facility] COMPARISON: No previous studies available for comparison. INDICATIONS : Persistent nausea and vomiting. Bacteremia. Evaluate for abscess. IV CONTRAST: 95 cc Omnipaque 350 (iohexol) IV ; Cumulative dose for multiple exams. ORAL CONTRAST: Prescribed oral contrast ingested. RADIATION DOSE: 13.94 CTDIvol (mGy) ; Combined studies - Thorax/Abdomen/Pelvis MEDICAL HISTORY : Hypertension. Gastroesophageal reflux disease. Diabetes. Asthma. SURGICAL HISTORY : Cholecystectomy. section.Hysterectomy. ENCOUNTER: Initial ACUITY: 3 days PAIN SCALE: 0/10 LOCATION: abdomen/pelvis Patient was premedicated for underlying contrast media allergy. TECHNIQUE: Volumetric scanning of the abdomen and pelvis was performed. Using automated exposure control and ad justment of the mA and/or kV according to patient size, radiation dose was kept as low as reasonably achievable to obtain optimal diagnostic quality images. DICOM format image data is available electro nically for review and comparison. FINDINGS: LOWER LUNGS: The visualized lower lungs are clear. LIVER: Decreased attenuation without lesion. There is no dilation of the biliary tree. Cholecystectomy clip s. SPLEEN: Normal size without lesion. PANCREAS: Within normal limits. KIDNEYS: Normal in size and shape. There is no mass, stone or hydronephrosis. ADRENAL GLANDS: Within normal limits. VASCULAR: There is no aortic aneurysm. BOWEL/MESENTERY: The stomach, small bowel, and colon demonstrate no acute abnormality. There is no free intraperitone al air or fluid. ABDOMINAL WALL: Within normal limits. RETROPERITONEUM: There is no lymphadenopathy. BLADDER: No wall thickening or mass. REPRODUCTIVE: Within normal limits. INGUINAL: There is no lymphadenopathy or hernia. MUSCULOSKELETAL: Within normal limits for patient age. CONCLUSION: 1. No acute inflammatory process. 2. Mild hepatic steatosis. 3. Cholecystectomy. 4. No abscess. Shar Hubbard MD on January 30, 2017 at 12:41 Board Certified Radiologist. This report was verified electronically.
[2017-01-30] MEDS: LEVOFLOXACIN 750 MG PREMIX INJ 150 ML IV SCH (15:20)
--- NOTE | 2017-01-30 16:10 | ECHRPT ---
Indication: endocarditis CONCLUSIONS Mildly dilated left ventricle. Wall thickness is normal. The left ventricular systolic function is severely reduced with an estimated ejection fraction in th e range of 20-25%. Mild mitral valve regurgitation. No aortic valve regurgitation. There is mild tricuspid valve regurgitation. No vegetation identified BP: / HR: Rhythm: MEASUREMENTS (Male / Female) Normal Values Technical Quality:Good 2D ECHO LV Diastolic Diameter PLAX 5.8 cm 4.2 - 5.9 / 3.9 - 5.3 cm LV Systolic Diameter PLAX 5.3 cm IVS Diastolic Thickness 0.9 cm 0.6 - 1.0 / 0.6 - 0.9 cm LVPW Diastolic Thickness 0.9 cm 0.6 - 1.0 / 0.6 - 0.9 cm LV Relative Wall Thickness 0.3 RV Internal Dim ED PLAX 2.2 cm M-MODE Aortic Root Diameter MM 3.1 cm LA Systolic Diameter MM 3.6 cm LA Ao Ratio MM 1.2 AV Cusp Separation MM 1.5 cm DOPPLER LV E' Lateral Velocity 6.6 cm/s LV E' Septal Velocity 5.7 cm/s TR Peak Velocity 232.0 cm/s TR Peak Gradient 21.5 mmHg Right Atrial Pressure 10.0 mmHg Pulmonary Artery Systolic Pressu 31.5 mmHg Right Ventricular Systolic Press 31.5 mmHg FINDINGS LEFT VENTRICLE Mildly dilated left ventricle. Wall thickness is normal. The left ventricular systolic function is severely reduced with an estimated ejection fraction in th e range of 20-25%. RIGHT VENTRICLE Normal right ventricular size and systolic function. LEFT ATRIUM The left atrial size is normal. RIGHT ATRIUM The right atrial size is normal. ATRIAL SEPTUM Normal atrial septal thickness without atrial level shunting by limited color doppler interrogation. AORTA The aortic root and proximal ascending aorta are normal in size on limited imaging. MITRAL VALVE Structurally normal mitral valve. Mild mitral valve regurgitation. AORTIC VALVE Trileaflet aortic valve. No aortic valve regurgitation. TRICUSPID VALVE Structurally normal tricuspid valve. There is mild tricuspid valve regurgitation. PULMONARY VALVE No pulmonary valve regurgitation or stenosis. VESSELS The inferior vena cava is normal in size. PERICARDIUM No pericardial effusion. Jonathan Giron MD (Electronically Signed) Final Date:30 January 2017 16:09
--- NOTE | 2017-01-30 17:12 | PQ ---
Physician Query Response Document PATIENT: FLAVIO MASSEY : 1950 ADMIT DATE: 01/27/2017 11:12 PM DISCH DATE: RESPONDING PROVIDER #: [email or web address] QUERY TEXT: Pneumonia Specificity Pneumonia is documented in the Medical Record. Please specify the type of pneumonia and the causative organism (includes probable or suspected) Such as: Type: -- Aspiration pneumonia (please also specify the aspirate) - [place]culane[place] (please specify cause) - Please indicate if the aspiration is postprocedure -- Bacterial (please document suspected or probable organism) -- Bronchopneumonia (please document suspected or probable organism) -- Interstitial pneumonia -- Organizing pneumonia / BOOP -- Pneumonia with influenza, norberto flu, or H1N1 flu -- RSV -- Tuberculosis, pulmonary -- Viral -- Other, please specify The patient's Clinical Indicators include: SCATTERED NONSPECIFIC PARACHYMAL DENSITIES AND GROUND GLASS DENSISTIES IN UPPER LOBES VALENTINA THE BRONCO VASCLAR BUNDLES VOMITING AFTER TAKING ANTIBIOTIC patient's states that she was vomiting all night. Yes (c/o chest pain on admision.) Query created by: Priscilla Mills on 01/30/2017 3:23 PM RESPONSE TEXT: Aspiration pneumonia with suspected anaerobic bacteria Electronically signed by: Tashi Hyde MD 01/30/2017 5:07 PM
--- NOTE | 2017-01-30 17:47 | MB ---
cc: AYDEN OCAMPO MD DATE OF CONSULTATION 01/30/17 [address] Galvan REASON FOR REFERRAL Nausea, vomiting and positive culture for strep veridans. HISTORY OF PRESENT ILLNESS Thank you for the consultation. A 67-year-old lady who has multiple medical problems including hyperlipidemia, diabetes, asthma, gastroparesis. The patient came complaining of nausea and vomiting, also has positive blood culture for strep viridans. I was asked to evaluate her GI tract because the patient denied any other GI symptoms and no recent GI workup. REVIEW OF SYSTEMS All 12-point negative except HPI. PAST MEDICAL HISTORY 1. Hyperlipidemia, 2. Diabetes 3. Asthma 4. Reflux symptoms 5. Thyroid disease, 6. Hypertension, 7. 8. Hysterectomy 9. Sinus surgery 10. Cholecystectomy. MEDICATIONS Reviewed in the chart. FAMILY HISTORY Significant for high blood pressure and lung cancer. SOCIAL HISTORY No tobacco, drugs or alcohol. ALLERGIES Reviewed in the chart. PHYSICAL EXAMINATION GENERAL: Alert, oriented in no acute distress. VITAL SIGNS: Stable. HEENT: Pupils round, reactive to light. NECK: Supple. CHEST: Clear to auscultation and percussion. CARDIAC: Regular rate and rhythm. ABDOMEN: Soft, nondistended. Positive bowel sounds. EXTREMITIES: No edema, clubbing or cyanosis. NEUROLOGIC: Neurologically intact. PSYCHIATRIC: Psychologically appropriate. LABORATORY DATA White count 4.5, hemoglobin 11.7. Platelets 327. Liver function tests were abnormal. Mild elevation on admission but this trended down. Hepatitis profile was negative. IMAGING STUDIES Abdominal CT scan - no acute inflammatory process. ASSESSMENT/PLAN A 66 year old lady with reflux symptom, nausea and strep viridans. We will do upper endoscopy and a colonoscopy to evaluate her GI tract to rule out malignancy. I discussed with the patient the procedure and complications. She agreed to have it done. This will be done on an urgent basis. The patient will be prepped for this. MD IDA Carter/ /5:10 PM /5:27 PM
--- NOTE | 2017-01-30 19:08 | HHI.IDPN ---
Subjective Subjective Remarks ID ENIO ANDERSON Antibiotics VANCOMYCIN / LEVAQUIN Allergies: Coded Allergies: gadodiamide (Unverified Allergy, Severe, Rash, 01/27/17) iodixanol (Unverified Allergy, Severe, Rash, 01/27/17) ceftriaxone (Unverified Allergy, Mild, RASH, 01/27/17) penicillin G (Unverified Allergy, Mild, Nausea/Vomiting, 01/27/17) Objective . Vital Signs Date Time Temp Pulse Resp B/P (MAP) Pulse Ox O2 Delivery O2 Flow Rate FiO2 01/30/17 16:00 98.1 105 18 109/73 (85) 98 01/30/17 12:00 96.4 104 20 129/81 (97) 100 01/30/17 08:20 93 16 93/61 (72) 100 01/30/17 08:05 98.4 93 16 91/65 (74) 100 01/30/17 08:00 98.3 96 18 110/72 (85) 98 01/30/17 06:41 98.2 111 20 114/78 (90) 98 01/30/17 05:45 103 01/30/17 04:00 98.2 103 18 114/78 (90) 96 01/30/17 00:00 97.2 104 16 116/77 (90) 98 01/29/17 21:00 120 01/29/17 20:30 96.1 108 20 125/84 (98) 99 01/29/17 19:50 96 21 01/30/17 01/30/17 01/31/17 15:00 23:00 07:00 Intake Total 450 ml 300 ml Balance 450 ml 300 ml Intake Oral 0 ml 300 ml IV Total 200 ml Other 250 ml # Voids 1 1 # Bowel Movements 1 . Laboratory Tests Test 01/29/17 11:30 01/30/17 11:47 C-Reactive Protein 1.40 MG/DL Blood Urea Nitrogen 15 MG/DL Creatinine 0.86 MG/DL Random Glucose 186 MG/DL Total Protein 7.3 GM/DL Albumin 3.4 GM/DL Calcium Level 8.2 MG/DL Alkaline Phosphatase 113 U/L Aspartate Amino Transf (AST/SGOT) 24 U/L Alanine Aminotransferase (ALT/SGPT) 29 U/L Total Bilirubin 0.8 MG/DL Sodium Level 140 MEQ/L Potassium Level 3.7 MEQ/L Chloride Level 102 MEQ/L Carbon Dioxide Level 29.5 MEQ/L Anion Gap 9 MEQ/L Estimat Glomerular Filtration Rate 79 ML/MIN Microbiology Date/Time Source Procedure Growth Status 01/27/17 23:05 Blood Peripheral Aerobic Blood Culture - Preliminary NO GROWTH IN 3 DAYS Resulted 01/27/17 23:05 Blood Peripheral Anaerobic Blood Culture - Preliminary NO GROWTH IN 3 DAYS Resulted 01/27/17 23:00 Blood Peripheral Aerobic Blood Culture - Preliminary NO GROWTH IN 3 DAYS Resulted 01/27/17 23:00 Blood Peripheral Anaerobic Blood Culture - Preliminary NO GROWTH IN 3 DAYS Resulted 01/27/17 23:10 Nasal Washing Influenza Types A,B Antigen (DARIO) - Final NEGATIVE FOR FLU A AND B ANTIGEN.... Complete 01/28/17 07:28 Urine Random Urine Legionella Antigen - Final PRESUMPTIVE NEGATIVE FOR LEGIONELLA P... Complete 01/28/17 07:28 Urine Random Urine Streptococcus pneumoniae Antigen (M - Final PRESUMPTIVE NEGATIVE FOR STREPTOCOCCU... Complete Physical Exam AWAKE , CHRONICALLY ILL PERRL NS CHEST : LUNGS ARE DIMINISHED EQUAL POSSIBLE SLIGHT CRACKLE AT RLL CARDIAC: RRR ABD: SOFT + BS EXT : NO EDEMA Assessment & Plan Diagnosis: (1) COPD with acute exacerbation ICD Codes: J44.1 - Chronic obstructive pulmonary disease with (acute) exacerbation Status: Acute (2) Bacteremia ICD Codes: R78.81 - Bacteremia Plan: ? SOURCE CT ABD BENIGN CT CHEST BENIGN ECHO NEGATIVE FOR VEGETATION AND REPEAT BC ARE NEGATIVE HOWEVER STREP VIRIDANS IS SIGNIFICANT INITIALLY WITH ALL 4 BOTTLES + PT MAY NEED CHASTITY WILL FU D/W DR ANDERSON (3) DMII (diabetes mellitus, type 2) ICD Codes: E11.9 - Type 2 diabetes mellitus Status: Chronic Charlette Gonzalez Jan 30, 2017 19:08
--- NOTE | 2017-01-30 20:44 | HHI.PR ---
Subjective Remarks denies nausea or abdominal pain denies fevers/chills sp EGD today Objective Vitals Vital Signs Date Time Temp Pulse Resp B/P (MAP) Pulse Ox O2 Delivery O2 Flow Rate FiO2 01/30/17 16:00 98.1 105 18 109/73 (85) 98 01/30/17 12:00 96.4 104 20 129/81 (97) 100 01/30/17 08:20 93 16 93/61 (72) 100 01/30/17 08:05 98.4 93 16 91/65 (74) 100 01/30/17 08:00 98.3 96 18 110/72 (85) 98 01/30/17 06:41 98.2 111 20 114/78 (90) 98 01/30/17 05:45 103 01/30/17 04:00 98.2 103 18 114/78 (90) 96 01/30/17 00:00 97.2 104 16 116/77 (90) 98 01/29/17 21:00 120 I/O 01/29/17 01/29/17 01/29/17 01/30/17 01/30/17 01/30/17 07:00 15:00 23:00 07:00 15:00 23:00 Intake Total 300 ml 460 ml 2000 ml 450 ml 300 ml Balance 300 ml 460 ml 2000 ml 450 ml 300 ml Intake Oral 360 ml 2000 ml 0 ml 300 ml IV Total 300 ml 100 ml 200 ml Other 250 ml # Voids 5 1 1 # Bowel Movements 1 10 1 Result Diagram: 01/28/17 0700 01/30/17 1147 Imaging Last Impressions Chest CT 01/30/17 1357 Signed Impressions: Service Date/Time: Monday, January 30, 2017 12:08 - CONCLUSION: 1. Scattered nonspecific parenchymal densities and groundglass densities in the upper lobes and along the bronchovascular bundles. 2. No septic emboli. 3. Enlargement of the pulmonary trunk which can be seen with pulmonary arterial hypertension. 4. Borderline prominence right paratracheal adenopathy measures 1.2 cm. 5. Dilated left ventricle. Shar Hubbard MD Abdomen/Pelvis CT 01/30/17 0000 Signed Impressions: Service Date/Time: Monday, January 30, 2017 12:08 - CONCLUSION: 1. No acute inflammatory process. 2. Mild hepatic steatosis. 3. Cholecystectomy. 4. No abscess. Shar Hubbard MD Chest X-Ray 01/27/171955 Signed Impressions: Service Date/Time: Friday, January 27, 2017 20:01 - CONCLUSION: Mild left base consolidation developing. Gustavo Anderson MD Objective Remarks GENERAL: Well-developed, well-nourished, in no acute distress. alert and orientated HEENT: Head is normocephalic without any lesions or masses noted. Facial features are symmetric. Eyes: Pupils equal round reactive to light. Extraocular muscles are intact. Conjunctivae were clear. Oropharyngeal: Pharynx without any erythema edema. Tongue is midline without deviation. Buccal mucosa is moist without any masses or lesions NECK: Supple without any masses. Trachea midline no deviation. No JVD, no bruits are appreciated CARDIAC: Regular rhythm, regular rate. S1/S2 are heard. No murmurs gallops or rubs. LUNGS: Clear to auscultation bilaterally. No wheeze, rhonchi or rales. No use of accessory muscles on inspiration or expiration. ABDOMEN: Soft, nontender. Nondistended. Bowel sounds heard in all 4 quadrants. No organomegaly or masses. Negative rebound, negative guarding EXTREMITIES: No edema, pulses are equal bilaterally. No cyanosis or clubbing NEUROLOGY: Mood and affect appear appropriate. Cranial nerves II through XII grossly intact. Muscle strength 5/5 in upper and lower extremities bilaterally. Deep tendon reflexes are 2+ in upper and lower extremities bilaterally. A/P Problem List: (1) Bacteremia ICD Code: R78.81 - Bacteremia (2) Gastritis ICD Code: K29.70 - Gastritis, unspecified, without bleeding (3) DMII (diabetes mellitus, type 2) ICD Code: E11.9 - Type 2 diabetes mellitus Status: Chronic Assessment and Plan Bacteremia Patient with previous blood cultures on 01/20/17 with 4/4 positive viridans Streptococcus Follow blood cultures have been taken have negative for 1 day at this time. Patient's urine culture at the time showed 50-100,000 mixed gram-positive cocci Chest x-ray at this time does indicate developing consolidation Patient with possible reaction to vancomycin, Cipro, Levaquin. With rash, nausea vomiting Started Azactam Infectious disease has been consulted for further recommendations I discussed the case at length with Dr. Kristal Painting from infectious disease. Nausea possibly coming from GI origin. GI consulted. Aztreonam discontinued and the patient started on Levaquin IV. Patient also started on Vanco IV with a target of 15-24 possible resistant strep viridans pending susceptibility. Check CT of the chest abdomen and pelvis with contrast to rule out disseminated infection. Start Carafate. 01/31 so EGD/colonoscopy which showed nodular gastritis and colon polyps. Continue Carafate and PPI. No further nausea while on Levaquin. Most likely all of the antibiotic adverse effects due to nausea 2/2 gastritis. as per ID patient may need CHASTITY. Chest CT as described above with scattered nonspecific parenchymal densities and groundglass densities in the upper lobes and along the bronchovalvular budles. No septic emboli. Hypertension, hyperlipidemia home medications have been continued Blood pressure seems to be stable Diabetes Accu-Cheks with sliding scale insulin Blood sugar seems to be stable. Continue Lipitor. Follow-up lipid profile as an outpatient. Persistent nausea/gastritis Consult GI. Continue Zofran as needed for nausea. Suspect likely related to GERD or peptic ulcer disease. I will also start the patient on Protonix. 01/31 due to gastritis as stated above DVT prevention Sequential compression devices Problem Qualifiers (1) DMII (diabetes mellitus, type 2): Qualified Codes: E11.9 - Type 2 diabetes mellitus without complications Tashi Olivas MD Jan 30, 2017 20:44
[2017-01-30] MEDS: RESP: ALBUTEROL 2.5 MG/IPRATROPIUM 0.5 MG NEB (PRN) INH (21:43)
[2017-01-30] MEDS: ATORVASTATIN 10 MG TAB PO SCH (22:13)
[2017-01-30] MEDS: MONTELUKAST SODIUM 10 MG TAB PO SCH (22:13)
[2017-01-30] MEDS: guaiFENesin/CODEINE SYRUP 200 MG/20 MG/10 ML CUP PO PRN (23:19)
[2017-01-31] VITALS (10 sets, daily range): BP systolic 101–117; BP diastolic 75–79; PULSE 88–124; RESP 16–20; TEMP 96.7–99; O2SAT 97–99
[2017-01-31] MEDS: VANCOMYCIN 1,000 MG/NS 250 ML IV SCH ×4 (04:36→23:02)
[2017-01-31 06:36] LABS: CHLORIDE 105 MEQ/L (98-107); POTASSIUM 3.4 MEQ/L (3.5-5.1); SODIUM (NA) 142 MEQ/L (136-145)
[2017-01-31 06:41] LABS: AUTOMATED NEUTROPHIL # 3.1 TH/MM3 (1.8-7.7); BASOPHIL % 0.3 % (0.0-2.0); EOSINOPHIL % 0.2 % (0.0-4.0); HEMATOCRIT 30.6 % (35.0-46.0); HEMO FLAGS DIFF FINAL; LYMPH % 31.8 % (9.0-44.0); LYMPHOCYTE # 1.6 TH/MM3 (1.0-4.8); MEAN CORPUSCULAR HEMOGLOBIN 30.9 PG (27.0-34.0); MEAN CORPUSCULAR HGB CONC 33.2 % (32.0-36.0); MONO % 8.9 % (0.0-8.0); NEUT % 58.8 % (16.0-70.0); PLATELET COUNT 308 TH/MM3 (150-450); RED BLOOD COUNT 3.29 MIL/MM3 (4.00-5.30); RED CELL DISTRIBUTION WIDTH 12.8 % (11.6-17.2); WHITE BLOOD COUNT 5.2 TH/MM3 (4.0-11.0)
[2017-01-31 06:49] LABS: ALKALINE PHOSPHATASE 85 U/L (45-117); ALT (GPT) 18 U/L (10-53); ANION GAP 8 MEQ/L (5-15); AST (GOT) 12 U/L (15-37); BICARBONATE 28.8 MEQ/L (21.0-32.0); BLOOD UREA NITROGEN 28 MG/DL (7-18); GLOMERULAR FILTRATION RATE 71 ML/MIN (>89); TOTAL BILIRUBIN ADULT 0.5 MG/DL (0.2-1.0)
[2017-01-31] MEDS: PANTOPRAZOLE SOD 40 MG DELAYED RELEASE TAB PO SCH (08:18)
[2017-01-31] MEDS: SUCRALFATE 1 GM/10 ML CUP PO SCH ×4 (08:18→22:58)
[2017-01-31] MEDS: ASPIRIN EC 81 MG TABEC PO SCH (08:19)
[2017-01-31] MEDS: BUDESONIDE-FORMOTEROL 80/4.5 MCG INHALER INH SCH ×2 (08:19→22:58)
[2017-01-31] MEDS: SODIUM CHLORIDE 0.9% FLUSH 10 ML FLUSH IV FLUSH SCH ×2 (08:20→23:00)
[2017-01-31] MEDS: INSULIN ASPART SUPPLEMENTAL SCALE SQ SCH ×4 (08:20→23:00)
[2017-01-31] MEDS: DOCUSATE SODIUM 50 MG/SENNA 8.6 MG TAB PO SCH ×2 (08:21→22:59)
[2017-01-31] MEDS: RESP: ALBUTEROL 2.5 MG/IPRATROPIUM 0.5 MG NEB (PRN) INH ×2 (08:28→20:03)
[2017-01-31] MEDS: METFORMIN HOLD POST IV CONTRAST SCH (12:10)
[2017-01-31] MEDS ORDERED: LISINOPRIL 10 MG TAB PO SCH (12:30)
--- NOTE | 2017-01-31 12:44 | HHI.PR ---
Subjective Remarks Patient seen in follow up for Bacteremia from prior admission with S. Viridans. Now on levaquan Echo shows no vegetations but surprising low EF for which the patient has never been evaluated for. She has JVD and a cardiac murmur. LBB found in 2014 on EKG Objective Vitals Vital Signs Date Time Temp Pulse Resp B/P (MAP) Pulse Ox O2 Delivery O2 Flow Rate FiO2 01/31/17 08:30 97 21 01/31/17 08:15 92 01/31/17 08:00 98.0 88 18 108/75 (86) 97 01/31/17 04:00 96.7 98 16 113/76 (88) 97 01/31/17 00:00 98.1 112 16 106/78 (87) 98 01/30/17 21:43 97 21 01/30/17 21:00 104 01/30/17 20:00 98.6 94 18 108/71 (83) 97 01/30/17 16:00 98.1 105 18 109/73 (85) 98 I/O 01/30/17 01/30/17 01/30/17 01/31/17 01/31/17 01/31/17 07:00 15:00 23:00 07:00 15:00 23:00 Intake Total 2000 ml 450 ml 300 ml 890 ml Balance 2000 ml 450 ml 300 ml 890 ml Intake Oral 2000 ml 0 ml 300 ml 640 ml IV Total 200 ml 250 ml Other 250 ml # Voids 1 1 3 # Bowel Movements 10 1 0 Result Diagram: 01/31/17 0527 01/31/17 0527 Imaging GENERAL: This is a well-nourished, well-developed patient, in no apparent distress. CARDIOVASCULAR: JVD, Regular rate and rhythm with gallops, or rubs. There is a 4/6 systolic murmur RESPIRATORY: Clear to auscultation. Breath sounds equal bilaterally. No wheezes , rales, or rhonchi. GASTROINTESTINAL: Abdomen soft, non-tender, nondistended. Normal active bowel sounds MUSCULOSKELETAL: Extremities without clubbing, cyanosis, or edema. NEURO: Alert & Oriented x4 to person, place, time, situation. Moves all ext x4 A/P Problem List: (1) Bacteremia ICD Code: R78.81 - Bacteremia Plan: BC neg at 4 days source unclear (chest/abd benign) Endoscopy shoes gastritis and polyps. Levaquin and vanco ID following (2) Gastritis ICD Code: K29.70 - Gastritis, unspecified, without bleeding (3) DMII (diabetes mellitus, type 2) ICD Code: E11.9 - Type 2 diabetes mellitus Status: Chronic Plan: controlled on current regimen (4) Cardiomyopathy ICD Code: I42.9 - Cardiomyopathy, unspecified Plan: etiology unclear? silent NM v right sided (hx asthma) Ef 20% Medical management with BB and ACEi (if BB tolerates), Fluid eval cardiology eval pending as ptn may need NST v cath at some point Discharge Planning If bp remain neg likely dc home Problem Qualifiers (1) DMII (diabetes mellitus, type 2): Qualified Codes: E11.9 - Type 2 diabetes mellitus without complications Margarita Cueva MD Jan 31, 2017 12:44
[2017-01-31] MEDS ORDERED: PILL SPLITTER OTHER PRN (14:00)
--- NOTE | 2017-01-31 15:35 | MB ---
cc: GALA SOTO MD DATE OF CONSULTATION: 01/31/2017 REASON FOR CONSULTATION Cardiomyopathy. HISTORY OF PRESENT ILLNESS Ms. Nunez is a 66-year-old female who does have a history of hypertension, hyperlipidemia and diabetes. She presented to the hospital because of positive blood cultures. They have not be able to find a clear source. Echocardiogram was subsequently obtained and revealed an EF of 20%. The patient has had some shortness of breath but otherwise is essentially asymptomatic. PAST MEDICAL HISTORY 1. Hypertension. 2. Hyperlipidemia. 3. Diabetes. 4. Left bundle branch block. 5. Hypothyroidism. 6. GERD. 7. Asthma. MEDICATIONS Current medications per the record. ALLERGIES 1. CEFTRIAXONE. 2. PENICILLIN. 3. IODIXANOL. FAMILY HISTORY Significant for hypertension and lung cancer. SOCIAL HISTORY The patient does not drink or smoke. REVIEW OF SYSTEMS Except as mentioned in the HPI all 12 systems are negative. PHYSICAL EXAMINATION VITAL SIGNS: 98.0, 88, 18, 108/75. GENERAL: In general she is a well-appearing female who is in no apparent distress. NECK: Her neck is free from JVD. LUNGS: The lungs are bilaterally clear to auscultation. CARDIOVASCULAR: On cardiovascular examination she has a normal S1 and S2. I did not appreciate any murmurs, rubs or gallops. ABDOMEN: The abdomen is soft. EXTREMITIES: He extremities are free from edema. LABORATORY Lab values are significant for hemoglobin of 10.1, TSH of 0.24 and creatinine of 0.95. EKG EKG shows sinus tachycardia with left femoral branch block. ECHOCARDIOGRAM Echocardiogram shows EF of 20-25%. There is mild mitral regurgitation. No vegetations were appreciated. IMPRESSIONS/RECOMMENDATIONS 1. Cardiomyopathy: The patient does have severe LV impairment. She has not had any recent chest pain to suggest ischemia, though given her multiple cardiovascular risk factors we did discuss further evaluation with catheterization versus nuclear stress testing. The patient was agreeable to stress testing. I do agree with beta liliana and RAD inhibitor, though I am going to change her beta liliana to metoprolol ER. I did discuss at length the increased likelihood of CHF and/or sudden . The patient at this time is not interested in either a LifeVest or ICD. Additionally, I did ask her to keep her sodium and fluids down to help prevent CHF. Other etiologies include her hypothyroidism. The low TSH is being addressed by the primary team. Tachycardia-induced cardiomyopathy is also a possibility as her heart rate has been up during this hospitalization. 2. Left bundle branch block: This is old. 3. Bacteremia: There is being managed by the primary team. 4. Disposition: It is reasonable for the patient to be discharged should her stress test be nonischemic. Gerson Suarez/SHAYY /2:42 PM /3:21 PM
[2017-01-31] MEDS: LEVOFLOXACIN 750 MG PREMIX INJ 150 ML IV SCH (15:54)
[2017-01-31] MEDS ORDERED: VANCOMYCIN TROUGH ONE (21:45)
[2017-01-31] MEDS: ATORVASTATIN 10 MG TAB PO SCH (22:59)
[2017-01-31] MEDS: MONTELUKAST SODIUM 10 MG TAB PO SCH (22:59)
[2017-02-01] VITALS (9 sets, daily range): BP systolic 106–126; BP diastolic 73–81; PULSE 53–118; RESP 16–18; TEMP 97.1–98.3; O2SAT 96–99
[2017-02-01] MEDS: INSULIN ASPART SUPPLEMENTAL SCALE SQ SCH ×4 (08:00→21:00)
[2017-02-01] MEDS: SUCRALFATE 1 GM/10 ML CUP PO SCH ×5 (08:28→21:03)
[2017-02-01] MEDS: PANTOPRAZOLE SOD 40 MG DELAYED RELEASE TAB PO SCH (08:29)
[2017-02-01] MEDS: ASPIRIN 325 MG TAB PO SCH (08:30)
[2017-02-01] MEDS: SODIUM CHLORIDE 0.9% FLUSH 10 ML FLUSH IV FLUSH SCH ×2 (08:30→21:03)
[2017-02-01] MEDS: BUDESONIDE-FORMOTEROL 80/4.5 MCG INHALER INH SCH ×2 (08:33→21:04)
[2017-02-01] MEDS: LISINOPRIL 5 MG TAB PO SCH (08:34)
[2017-02-01] MEDS: DOCUSATE SODIUM 50 MG/SENNA 8.6 MG TAB PO SCH ×2 (08:34→21:03)
[2017-02-01] MEDS ORDERED: METOPROLOL SUCCINATE 25 MG EXTENDED RELEASE TAB PO SCH (09:00)
[2017-02-01] MEDS ORDERED: ATENOLOL 25 MG TAB PO SCH (09:00)
[2017-02-01] MEDS ORDERED: REGADENOSON INJ 0.4 MG/5 ML SYR IV ONE (10:00)
--- NOTE | 2017-02-01 11:44 | RADRPT ---
EXAM DATE/TIME: 02/01/2017 10:04 [facility] COMPARISON: No previous studies available for comparison. INDICATIONS : Left bundle branch block. DOSE: 27.3 mCi Tc99m Myoview at stress. 8.8 mCi Tc99m Myoview at rest. 0.4 mg Lexiscan STRESS SYMPTOMS: Dyspnea. EJECTION FRACTION: 28% MEDICAL HISTORY : Hypercholesterolemia. Hypertension. Diabetes mellitus type 2. COPD. GERD. SURGICAL HISTORY : Hysterectomy. Cholecystectomy. Tubal ligation. ENCOUNTER: Initial ACUITY: 1 day PAIN SCALE: 0/10 LOCATION: chest TECHNIQUE: The patient underwent pharmacologic stress with infusion of prescribed dose. Continuous ECG tracing was monitored during stress. Gated SPECT imaging was performed after stress and conventional SPECT i maging was performed at rest. The examination was performed on a SPECT/CT scanner, both attenuation and non-corrected datasets were reviewed. FINDINGS: DISTRIBUTION: The maximum perfused segment at stress is in the anterolateral wall. PERFUSION STUDY: Fixed perfusion defect near the cardiac apex. GATED STUDY: Severe hypokinesis. CONCLUSION: 1. Fixed perfusion defects predominately near the cardiac apex which may be related to prior infarct. No significant reversibility. 2. Severe global hypokinesis with ejection fraction 28%. RISK CATEGORY: High (>3% Annual Mortality Rate) Bryn Donald MD on February 01, 2017 at 11:39 Board Certified Radiologist. This report was verified electronically.
[2017-02-01 12:12] LABS: BICARBONATE 30.4 MEQ/L (21.0-32.0)
[2017-02-01 12:16] LABS: POTASSIUM 2.8 MEQ/L (3.5-5.1)
[2017-02-01 13:19] LABS: FREE T4 1.28 NG/DL (0.76-1.46)
--- NOTE | 2017-02-01 13:54 | HHI.PR ---
Subjective Remarks patient seen in follow up for Transient bacteremia and for new onset CHF. Lexiscan shows likely prior infarct Plan of care discussed with patient Objective Vitals Vital Signs Date Time Temp Pulse Resp B/P (MAP) Pulse Ox O2 Delivery O2 Flow Rate FiO2 02/01/17 12:51 97.1 95 18 126/80 (95) 98 02/01/17 09:51 97.2 53 18 109/80 (90) 97 02/01/17 04:00 98.3 90 16 110/75 (87) 98 02/01/17 00:00 97.8 95 16 117/80 (92) 97 01/31/17 20:05 97 21 01/31/17 20:00 99.0 106 16 117/77 (90) 99 01/31/17 20:00 93 01/31/17 18:50 124 01/31/17 16:00 98.2 99 19 101/79 (86) 98 I/O 01/31/17 01/31/17 01/31/17 02/01/17 02/01/17 02/01/17 07:00 15:00 23:00 07:00 15:00 23:00 Intake Total 890 ml 148 ml 505 ml Balance 890 ml 148 ml 505 ml Intake Oral 640 ml 240 ml IV Total 250 ml 148 ml 265 ml # Voids 3 4 7 # Bowel Movements 0 0 1 Result Diagram: 01/31/17 0527 02/01/17 1140 Objective Remarks GENERAL: This is a well-nourished, well-developed patient, in no apparent distress. CARDIOVASCULAR: Regular rate and rhythm without murmurs, gallops, or rubs. RESPIRATORY: JVD, Clear to auscultation. Breath sounds equal bilaterally. No wheezes, rales, or rhonchi. GASTROINTESTINAL: Abdomen soft, non-tender, nondistended. Normal active bowel sounds MUSCULOSKELETAL: Extremities without clubbing, cyanosis, or edema. NEURO: Alert & Oriented x4 to person, place, time, situation. Moves all ext x4 A/P Problem List: (1) Bacteremia ICD Code: R78.81 - Bacteremia Plan: BC neg at 5 days (initial 4 cultures drawn 01/21 in the ER for visit c/o resp symptoms; Rx cipro for UA abnormality with nonspecific culture results) source unclear (chest/abd benign) Endoscopy shows gastritis and polyps. Levaquin and vanco ID following (2) Gastritis ICD Code: K29.70 - Gastritis, unspecified, without bleeding Plan: continue ppi (3) DMII (diabetes mellitus, type 2) ICD Code: E11.9 - Type 2 diabetes mellitus Status: Chronic Plan: controlled on current regimen (4) Cardiomyopathy ICD Code: I42.9 - Cardiomyopathy, unspecified Plan: etiology unclear silent [place] v right sided (hx asthma) Ef 20% Medical management with BB and ACEi (if BB tolerates), Fluid eval cardiology eval appreciated NST shows fixed infarct without reversible changes. Patient agreeable to eval for ICD V life vest (5) Hypokalemia ICD Code: E87.6 - Hypokalemia Plan: replace and follow trend (6) Abnormal TSH ICD Code: R94.6 - Abnormal results of thyroid function studies Plan: suppressed TSH eval in progress may be subclinical hyperthyroidism Discharge Planning If bc remain neg likely dc home Problem Qualifiers (1) DMII (diabetes mellitus, type 2): Qualified Codes: E11.9 - Type 2 diabetes mellitus without complications Margarita Cueva MD Feb 01, 2017 13:54
[2017-02-01] MEDS ORDERED: POTASSIUM CHLORIDE 25 MEQ EFFERVESCENT TAB PO ONE (15:00)
[2017-02-01] MEDS: LEVOFLOXACIN 750 MG PREMIX INJ 150 ML IV SCH (15:56)
--- NOTE | 2017-02-01 16:39 | PD.CARD.PN ---
Subjective Subjective Remarks Pt without CV complaints Objective Medications Current Medications Medications (Trade) Dose Ordered Sig/Harvey Route Start Time Stop Time Status Last Admin (D50w (Vial) Inj) 50 ml UNSCH PRN IV 01/27/17 23:15 (Glucagon Inj) 1 mg UNSCH PRN OTHER 01/27/17 23:15 (NovoLOG SUPPLEMENTAL SCALE) 1 ACHS SLIDING SCALE SQ 01/28/17 08:00 01/31/17 17:36 (NS Flush) 2 ml UNSCH PRN IV FLUSH 01/27/17 23:15 (NS Flush) 2 ml BID IV FLUSH 01/28/17 09:00 02/01/17 08:30 (Zofran Inj) 4 mg Q6H PRN IVP 01/27/17 23:15 (Tylenol) 650 mg Q6H PRN PO 01/27/17 23:15 (Morphine Inj) 2 mg Q3H PRN IV PUSH 01/27/17 23:15 (Roxicodone) 5 mg Q4H PRN PO 01/27/17 23:15 01/31/17 00:31 (Lupe-Colace) 1 tab BID PO 01/28/17 09:00 02/01/17 08:34 (Senokot) 17.2 mg Q12H PRN PO 01/27/17 23:15 (Dulcolax Supp) 10 mg DAILY PRN RECTAL 01/27/17 23:15 (Lipitor) 10 mg HS PO 01/28/17 21:00 01/31/17 22:59 (Symbicort 80-4.5 Mcg Inh) 2 puff Q12HR INH 01/28/17 09:00 02/01/17 08:33 (Robitussin Ac 200-20 Mg/10 ml Liq) 5 ml Q6H PRN PO 01/27/17 23:15 01/30/17 23:19 (Duoneb Neb) 1 ampule Q4HR NEB PRN INH 01/27/17 23:15 01/31/17 20:03 (Singulair) 10 mg HS PO 01/28/17 21:00 01/31/17 22:59 (Carafate Liq) 1 gm ACHS PO 01/29/17 17:00 02/01/17 12:34 Levofloxacin/ Dextrose 150 ml @ 100 mls/hr Q24H IV 01/29/17 15:00 02/01/17 15:56 Pharmacy Profile Note 0 ml @ 0 mls/hr UNSCH OTHER 01/29/17 15:00 (Benadryl Inj) 25 mg Q4H PRN IV 01/29/17 14:30 (Protonix) 40 mg DAILY PO 01/30/17 12:00 02/01/17 08:29 (Lasix) 10 mg EVERY OTHER DAY PO 02/02/17 09:00 (Aspirin) 325 mg DAILY PO 02/01/17 09:00 02/01/17 08:30 (Prinivil) 2.5 mg DAILY PO 02/01/17 09:00 02/01/17 08:34 (Pill Splitter) 1 ea UNSCH PRN OTHER 01/31/17 14:00 (Toprol Xl) 12.5 mg DAILY PO 02/01/17 09:00 02/01/17 08:30 Vancomycin HCl 1100 mg/Sodium Chloride 261 ml @ 250 mls/hr Q18H IV 02/01/17 17:00 Miscellaneous Information SPECIFIC LAB TO BE DRAWN:VANCOMY... ONCE ONCE .XX 02/03/17 22:45 02/03/17 22:46 Vital Signs / I&O Vital Signs Date Time Temp Pulse Resp B/P (MAP) Pulse Ox O2 Delivery O2 Flow Rate FiO2 02/01/17 14:39 96 02/01/17 12:51 97.1 95 18 126/80 (95) 98 02/01/17 09:51 97.2 53 18 109/80 (90) 97 02/01/17 08:01 118 02/01/17 04:00 98.3 90 16 110/75 (87) 98 02/01/17 00:00 97.8 95 16 117/80 (92) 97 01/31/17 20:05 97 21 01/31/17 20:00 99.0 106 16 117/77 (90) 99 01/31/17 20:00 93 01/31/17 18:50 124 I/O 01/31/17 01/31/17 01/31/17 02/01/17 02/01/17 02/01/17 07:00 15:00 23:00 07:00 15:00 23:00 Intake Total 890 ml 148 ml 505 ml Balance 890 ml 148 ml 505 ml Intake Oral 640 ml 240 ml IV Total 250 ml 148 ml 265 ml # Voids 3 4 7 # Bowel Movements 0 0 1 Physical Exam GENERAL: Well developed, well nourished. No acute distress. HEENT: Jugular venous pressure is normal. CHEST: Lungs clear to auscultation bilaterally. Unlabored respiratory effort. CARDIAC: Regular rate and rhythm without S3, S4, or murmur. ABDOMEN: Soft, nontender, no hepatosplenomegaly. Bowel sounds present. EXTREMITIES: No clubbing, cyanosis, or edema. Laboratory Laboratory Tests Test 01/31/17 23:00 02/01/17 11:40 02/01/17 11:57 Vancomycin Level Trough 9.8 MCG/ML Blood Urea Nitrogen 22 MG/DL Creatinine 0.83 MG/DL Random Glucose 126 MG/DL Calcium Level 8.7 MG/DL Sodium Level 143 MEQ/L Potassium Level 2.8 MEQ/L Chloride Level 104 MEQ/L Carbon Dioxide Level 30.4 MEQ/L Anion Gap 9 MEQ/L Estimat Glomerular Filtration Rate 83 ML/MIN Free Thyroxine 1.28 NG/DL Imaging Last 72 hours Impressions Myocardial Perfusion Scan Nuc Med 02/01/17 0000 Signed Impressions: Service Date/Time: January 10:04 - CONCLUSION: 1. Fixed perfusion defects predominately near the cardiac apex which may be related to prior infarct. No significant reversibility. 2. Severe global hypokinesis with ejection fraction 28%%. RISK CATEGORY: High (>3%% Annual Mortality Rate) Bryn Donald MD Chest CT 01/30/17 1357 Signed Impressions: Service Date/Time: Monday, January 30, 2017 12:08 - CONCLUSION: 1. Scattered nonspecific parenchymal densities and groundglass densities in the upper lobes and along the bronchovascular bundles. 2. No septic emboli. 3. Enlargement of the pulmonary trunk which can be seen with pulmonary arterial hypertension. 4. Borderline prominence right paratracheal adenopathy measures 1.2 cm. 5. Dilated left ventricle. Shar Hubbard MD Abdomen/Pelvis CT 01/30/17 0000 Signed Impressions: Service Date/Time: Monday, January 30, 2017 12:08 - CONCLUSION: 1. No acute inflammatory process. 2. Mild hepatic steatosis. 3. Cholecystectomy. 4. No abscess. Shar Hubbard MD Assessment and Plan Assessment and Plan 1. Cardiomyopathy: EF 20% on both ECHO and nuc -no ischemia -pt agreeable to Life vest - BB and RAD . 2. Left bundle branch block: This is old. 3. Bacteremia: There is being managed by the primary team. 4. Thyroid - per primary team Mariah Smart MD Feb 01, 2017 16:39
[2017-02-01] MEDS: VANCOMYCIN INJ 1,100 MG in SODIUM CHLOR 0.9% 250 ML INJ 250 ML IV SCH (17:27)
[2017-02-01] MEDS: RESP: ALBUTEROL 2.5 MG/IPRATROPIUM 0.5 MG NEB (PRN) INH (19:56)
[2017-02-01] MEDS: ATORVASTATIN 10 MG TAB PO SCH (21:03)
[2017-02-01] MEDS: MONTELUKAST SODIUM 10 MG TAB PO SCH (21:03)
[2017-02-02] VITALS (9 sets, daily range): BP systolic 117–128; BP diastolic 73–91; PULSE 72–105; RESP 16–19; TEMP 97.5–98.5; O2SAT 94–99
[2017-02-02] MEDS: RESP: ALBUTEROL 2.5 MG/IPRATROPIUM 0.5 MG NEB (PRN) INH (07:34)
[2017-02-02] MEDS: INSULIN ASPART SUPPLEMENTAL SCALE SQ SCH ×4 (07:41→21:00)
[2017-02-02] MEDS: SUCRALFATE 1 GM/10 ML CUP PO SCH ×4 (07:42→21:34)
[2017-02-02] MEDS: ASPIRIN 325 MG TAB PO SCH (08:23)
[2017-02-02] MEDS: LISINOPRIL 5 MG TAB PO SCH (08:24)
[2017-02-02] MEDS: PANTOPRAZOLE SOD 40 MG DELAYED RELEASE TAB PO SCH (08:26)
[2017-02-02] MEDS: DOCUSATE SODIUM 50 MG/SENNA 8.6 MG TAB PO SCH ×2 (08:26→21:34)
[2017-02-02] MEDS: SODIUM CHLORIDE 0.9% FLUSH 10 ML FLUSH IV FLUSH SCH ×2 (08:28→21:33)
[2017-02-02] MEDS: BUDESONIDE-FORMOTEROL 80/4.5 MCG INHALER INH SCH ×2 (08:29→21:34)
[2017-02-02] MEDS ORDERED: FUROSEMIDE 20 MG TAB PO SCH (09:00)
[2017-02-02] MEDS ORDERED: METOPROLOL SUCCINATE 25 MG EXTENDED RELEASE TAB PO SCH (09:00)
--- NOTE | 2017-02-02 09:28 | HHI.FF ---
Face to Face Verification Diagnosis: (1) Bacteremia Home Health Nursing Order: Medical education Signs/symptoms of disease process CHF education Medication education-adverse effect IV medication administration I have seen patient Mel Nunez on 02/02/17. My clinical findings support the need for the requested home health care services because: Patient has SOB Deconditioned w/ increased weakness I certify that my clinical findings support that this patient is homebound because: Poor cardiac reserve Margarita Cueva MD Feb 02, 2017 09:28
--- NOTE | 2017-02-02 11:26 | HHI.FF ---
Infusion Therapy Location of Infusion Therapy: Home Health Care IV Infusion Order Patient Information Patient Weight 60.6 kg Diagnosis: (1) Bacteremia (2) Cardiomyopathy Coded Allergies: gadodiamide (Unverified Allergy, Severe, Rash, 01/27/17) iodixanol (Unverified Allergy, Severe, Rash, 01/27/17) ceftriaxone (Unverified Allergy, Mild, RASH, 01/27/17) penicillin G (Unverified Allergy, Mild, Nausea/Vomiting, 01/27/17) Administer Medication Vancomycin 1 gram IV q 24 hours Start Treatment: Feb 02, 2017 Stop Treatment: Feb 16, 2017 Additional Information Venous access: PICC Line Additional Instructions [x] Peripheral flush and dressing changes per protocol [x] Implanted port and central airline customer service agent: * Implanted port: 10 ml Normal Saline followed by 5 ml Heparin 100 units/ml Heparin flush after each use and monthly to maintain. [] May leave port accessed during therapy. [] May leave peripheral site accessed for duration of therapy. [x] If patient has SOB or respiratory distress, check oxygen saturation. If less than 90% or clinical signs of respiratory distress, administer oxygen at 2 L/min. via nasal cannula and notify physician. [x] Anaphylaxis/Reaction orders: * Stop infusion. * Keep IV line open with saline flush. * Notify physician. * Monitor vital signs every 15 minutes until symptoms resolve. * Check Oxygen saturation; Oxygen at 2 L/min. via nasal cannula if less than 90% or clinical signs of respiratory distress. * Administer diphenhydramine (Benadryl) 25 mg IV STAT, (unless patient has received as pre-med). May repeat once, if necessary. * Solu-Cortef 250 mg IVP over 30-60 seconds, use 100 mg vials for each dissolution. * Epinephrine (1mg/1 ml) 0.3 mg subcutaneously or IVP now with any signs of respiratory distress. * Check with physician for new additional pre-med orders if patient is re- challenged or re-treated. [x] May remove PICC line when treatment complete, after confirming with Physician. [x] If the patient is admitted to the hospital, the ED, or transferred via [facility] , complete transfer form including medication reconciliation order sheet. Laboratory Tests Weekly Labs: CBC w/diff, CMP, CRP, Vancomycin Trough Additional Information Fax all labs to Dr Mccormick- [phone] Mccormick in 2 weeks Stacie Mccormick MD Feb 02, 2017 11:26
--- NOTE | 2017-02-02 11:32 | HHI.IDPN ---
Subjective Subjective Remarks No fevers Breathing ok Patient does not want any procedures Antibiotics VANCOMYCIN / LEVAQUIN Lines Peripheral Past Medical History Hypertension Hyperlipidemia diabetes Asthma Gastroesophageal reflux Possible underlying thyroid tissue Past Surgical History Cholecystectomy Hysterectomy Sinus surgery Allergies: Coded Allergies: gadodiamide (Unverified Allergy, Severe, Rash, 01/27/17) iodixanol (Unverified Allergy, Severe, Rash, 01/27/17) ceftriaxone (Unverified Allergy, Mild, RASH, 01/27/17) penicillin G (Unverified Allergy, Mild, Nausea/Vomiting, 01/27/17) Objective . Vital Signs Date Time Temp Pulse Resp B/P (MAP) Pulse Ox O2 Delivery O2 Flow Rate FiO2 02/02/17 08:42 97.5 72 19 118/84 (95) 97 02/02/17 08:29 98 96 02/02/17 07:40 94 21 02/02/17 04:00 98.4 74 16 120/73 (89) 96 02/02/17 00:00 97.7 104 18 121/76 (91) 99 02/01/17 20:00 97.5 93 16 106/81 (89) 99 02/01/17 20:00 92 02/01/17 19:58 96 21 02/01/17 17:47 97.8 93 16 108/73 (85) 99 02/01/17 14:39 96 02/01/17 12:51 97.1 95 18 126/80 (95) 98 . Laboratory Tests Test 02/01/17 11:40 02/01/17 11:57 Blood Urea Nitrogen 22 MG/DL Creatinine 0.83 MG/DL Random Glucose 126 MG/DL Calcium Level 8.7 MG/DL Sodium Level 143 MEQ/L Potassium Level 2.8 MEQ/L Chloride Level 104 MEQ/L Carbon Dioxide Level 30.4 MEQ/L Anion Gap 9 MEQ/L Estimat Glomerular Filtration Rate 83 ML/MIN Free Thyroxine 1.28 NG/DL Total Triiodothyronine 81 NG/DL Physical Exam GENERAL: This is a chronically ill patient, in no apparent distress. SKIN: No rashes, ecchymoses or lesions. Cool and dry. HEAD: Atraumatic. Normocephalic. No temporal or scalp tenderness. EYES: Pupils equal round and reactive. Extraocular motions intact. No scleral icterus. No injection or drainage. ENT: Nose without bleeding, purulent drainage or septal hematoma. Throat without erythema, tonsillar hypertrophy or exudate. Uvula midline. Airway patent. NECK: Trachea midline. Supple, nontender, no meningeal signs. CARDIOVASCULAR: Regular rate and rhythm with systolic murmurs, gallops, or rubs. RESPIRATORY: Clear to auscultation. Breath sounds equal bilaterally. No wheezes , rales, or rhonchi. GASTROINTESTINAL: Abdomen soft, non-tender, nondistended. No epigastric tenderness. MUSCULOSKELETAL: Extremities without clubbing, cyanosis, or edema. No joint tenderness, effusion, or edema noted. No calf tenderness. Negative Homans sign bilaterally. NEUROLOGICAL: Awake and alert. Grossly non focal Psych cooperative, flat affect. IV line sites with no e.o infection Assessment & Plan Diagnosis: (1) Streptococcal bacteremia ICD Codes: R78.81 - Bacteremia Status: Resolved Plan: Repeat blood culture is negative Echo with low EF- Patient refused CHASTITY Continue IV Vancomycin x 2 weeks with close follow up ( Patient is allergic to Ceftriaxone and PCN) Stop Levofloxacin (2) Cardiomyopathy ICD Codes: I42.9 - Cardiomyopathy, unspecified Stacie Mccormick MD Feb 02, 2017 11:32
[2017-02-02] MEDS ORDERED: SODIUM CHLORIDE 0.9% FLUSH 10 ML FLUSH IV FLUSH PRN (12:00)
[2017-02-02] MEDS: VANCOMYCIN INJ 1,100 MG in SODIUM CHLOR 0.9% 250 ML INJ 250 ML IV SCH (12:02)
--- NOTE | 2017-02-02 12:11 | RADRPT ---
EXAM DATE/TIME: 02/02/2017 11:57 [facility] COMPARISON: CT THORAX W CONTRAST, January 30, 2017, 12:08. CHEST PA & LAT, January 27, 2017, 20:01. INDICATIONS : PICC line placement. MEDICAL HISTORY : asthma SURGICAL HISTORY : None. ENCOUNTER: Subsequent ACUITY: 1 week PAIN SCORE: 0/10 LOCATION: Bilateral chest FINDINGS: A single view of the chest demonstrates the lungs to be symmetrically aerated without evidence of mas s, infiltrate or effusion. The cardiomediastinal contours are unremarkable. Osseous structures are intact. Right PICC line is placed which terminates in these proximal superior vena cava. Mild persist ent prominence of interstitial markings in the bases. CONCLUSION: Right PICC line placed terminates in proximal superior vena cava. Junior Daniel MD on February 02, 2017 at 12:08 Board Certified Radiologist. This report was verified electronically.
[2017-02-02] MEDS ORDERED: ASPI325T PO (13:52)
[2017-02-02] MEDS ORDERED: LISI-519 PO (13:52)
[2017-02-02] MEDS ORDERED: FURO20TA PO (13:52)
--- NOTE | 2017-02-02 13:54 | HHI.PR ---
Subjective Remarks Patient seen in follow up for bacteremia, Cardiomyopathy and DM2. Doing well No new events Family in room Objective Vitals Vital Signs Date Time Temp Pulse Resp B/P (MAP) Pulse Ox O2 Delivery O2 Flow Rate FiO2 02/02/17 12:39 98.0 89 19 122/84 (97) 97 02/02/17 08:42 97.5 72 19 118/84 (95) 97 02/02/17 08:37 105 02/02/17 08:29 98 96 02/02/17 07:40 94 21 02/02/17 04:00 98.4 74 16 120/73 (89) 96 02/02/17 00:00 97.7 104 18 121/76 (91) 99 02/01/17 20:00 97.5 93 16 106/81 (89) 99 02/01/17 20:00 92 02/01/17 19:58 96 21 02/01/17 17:47 97.8 93 16 108/73 (85) 99 02/01/17 14:39 96 I/O 02/01/17 02/01/17 02/01/17 02/02/17 02/02/17 02/02/17 07:00 15:00 23:00 07:00 15:00 23:00 Intake Total 505 ml 1224 ml 360 ml Balance 505 ml 1224 ml 360 ml Intake Oral 240 ml 800 ml 360 ml IV Total 265 ml 424 ml # Voids 7 3 2 # Bowel Movements 1 2 0 Result Diagram: 01/31/17 0527 02/01/17 1140 Objective Remarks GENERAL: This is a well-nourished, well-developed patient, in no apparent distress. CARDIOVASCULAR: Regular rate and rhythm without murmurs, gallops, or rubs. RESPIRATORY: JVD, Clear to auscultation. Breath sounds equal bilaterally. No wheezes, rales, or rhonchi. GASTROINTESTINAL: Abdomen soft, non-tender, nondistended. Normal active bowel sounds MUSCULOSKELETAL: Extremities without clubbing, cyanosis, or edema. NEURO: Alert & Oriented x4 to person, place, time, situation. Moves all ext x4 A/P Problem List: (1) Bacteremia ICD Code: R78.81 - Bacteremia Plan: BC neg at 5 days (initial 4 cultures drawn 01/21 in the ER for visit c/o resp symptoms); Repeat blood culture is negative Echo with low EF- Patient refused CHASTITY Continue IV Vancomycin x 2 weeks with close follow up (Patient is allergic to Ceftriaxone and PCN) (2) Gastritis ICD Code: K29.70 - Gastritis, unspecified, without bleeding Plan: continue ppi (3) DMII (diabetes mellitus, type 2) ICD Code: E11.9 - Type 2 diabetes mellitus Status: Chronic Plan: controlled on current regimen (4) Cardiomyopathy ICD Code: I42.9 - Cardiomyopathy, unspecified Plan: etiology unclear silent WA v right sided (hx asthma) Ef 20% Medical management with BB and ACEi (if BB tolerates), Fluid eval authorization pending for life vest (5) Hypokalemia ICD Code: E87.6 - Hypokalemia Plan: replace, check mag and follow trend (6) Abnormal TSH ICD Code: R94.6 - Abnormal results of thyroid function studies Plan: suppressed TSH with nl t3/4 may be subclinical hyperthyroidism outpatient follow up recommended. pcp aware Discharge Planning DC when life vest arranged Problem Qualifiers (1) DMII (diabetes mellitus, type 2): Qualified Codes: E11.9 - Type 2 diabetes mellitus without complications Margarita Cueva MD Feb 02, 2017 13:54
[2017-02-02 18:16] LABS: POTASSIUM 3.5 MEQ/L (3.5-5.1)
[2017-02-02 18:19] LABS: MAGNESIUM 1.8 MG/DL (1.5-2.5)
[2017-02-02] MEDS: MONTELUKAST SODIUM 10 MG TAB PO SCH (21:34)
[2017-02-02] MEDS: ATORVASTATIN 10 MG TAB PO SCH (21:35)
[2017-02-03] MEDS ORDERED: SODIUM CHLORIDE 0.9% FLUSH 10 ML FLUSH IV FLUSH SCH (09:00)
[2017-02-03] MEDS ORDERED: VANCOMYCIN TROUGH ONE (22:45)
--- NOTE | 2017-02-14 17:05 | HHI.DS ---
Discharge Summary Admission Date Jan 27, 2017 at 23:12 Discharge Date: Feb 02, 2017 Admitting Diagnosis bacteremia, left lower lobe pneumonia (1) Bacteremia ICD Code: R78.81 - Bacteremia (2) Gastritis ICD Code: K29.70 - Gastritis, unspecified, without bleeding (3) DMII (diabetes mellitus, type 2) ICD Code: E11.9 - Type 2 diabetes mellitus Status: Chronic (4) Cardiomyopathy ICD Code: I42.9 - Cardiomyopathy, unspecified (5) Hypokalemia ICD Code: E87.6 - Hypokalemia (6) Abnormal TSH ICD Code: R94.6 - Abnormal results of thyroid function studies Procedures none Brief History - From Admission Written by Sridhar Colin, acting as scribe for Dr. Galvan on 01/28/17 at 17:40. 66-year-old female with known history of hypertension, hyperlipidemia, diabetes , asthma, gastroesophageal reflux, possible underlying thyroid condition who presented to the hospital because she was called to come back to the hospital because of positive blood cultures. Patient originally presented to the hospital on January 20, 2017 because she had not been feeling well with coughing, congestion, shortness of breath. Patient had workup done in found to have possible urinary tract infection and she was discharged home with Cipro and albuterol nebulizer. Patient had blood cultures taken at that time and apparently tested +4/4 with viridans streptococcus patient was notified and return to the hospital. Patient states that since she's been home she's been doing well. Denies any fever, chills. She has had some cough with some white phlegm production. Denies any shortness of breath, chest pain, abdominal pain, diarrhea, constipation. She states that she did try to take the medication Cipro however culture to have significant nausea and she did have vomiting. She was only able take 1 tablet daily. Patient was called back to the hospital and while in the emergency department she was given Levaquin IV and by mouth in which the patient states that she had significant nausea and vomiting. She also states that when they were infusing the vancomycin she also developed significant nausea and vomiting. She has also developed a rash on the hands and arms. She denies any shortness of breath, globus sensation, facial edema. Workup was done again in the emergency department and was found to have some mild left base consolidation developing. This could possibly be the etiology of her bacteremia. However patient was admitted with infectious disease consultation for further evaluation and management. Significant Findings Echocardiogram shows severely reduced ejection fraction Imaging Last Impressions Chest X-Ray 02/02/17 0000 Signed Impressions: Service Date/Time: Thursday, February 02, 2017 11:57 - CONCLUSION: Right PICC line placed terminates in proximal superior vena cava. Junior Daniel MD Myocardial Perfusion Scan Nuc Med 02/01/17 0000 Signed Impressions: Service Date/Time: January 10:04 - CONCLUSION: 1. Fixed perfusion defects predominately near the cardiac apex which may be related to prior infarct. No significant reversibility. 2. Severe global hypokinesis with ejection fraction 28%%. RISK CATEGORY: High (>3%% Annual Mortality Rate) Bryn Donald MD Chest CT 01/30/17 1357 Signed Impressions: Service Date/Time: Monday, January 30, 2017 12:08 - CONCLUSION: 1. Scattered nonspecific parenchymal densities and groundglass densities in the upper lobes and along the bronchovascular bundles. 2. No septic emboli. 3. Enlargement of the pulmonary trunk which can be seen with pulmonary arterial hypertension. 4. Borderline prominence right paratracheal adenopathy measures 1.2 cm. 5. Dilated left ventricle. Shar Hubbard MD Abdomen/Pelvis CT 01/30/17 0000 Signed Impressions: Service Date/Time: Monday, January 30, 2017 12:08 - CONCLUSION: 1. No acute inflammatory process. 2. Mild hepatic steatosis. 3. Cholecystectomy. 4. No abscess. Shar Hubbard MD PE at Discharge GENERAL: This is a well-nourished, well-developed patient, in no apparent distress. CARDIOVASCULAR: Regular rate and rhythm without murmurs, gallops, or rubs. RESPIRATORY: JVD, Clear to auscultation. Breath sounds equal bilaterally. No wheezes, rales, or rhonchi. GASTROINTESTINAL: Abdomen soft, non-tender, nondistended. Normal active bowel sounds MUSCULOSKELETAL: Extremities without clubbing, cyanosis, or edema. NEURO: Alert & Oriented x4 to person, place, time, situation. Moves all ext x4 Pt update on day of discharge Please see daily progress note Hospital Course Patient was evaluated for bacteremia. Blood cultures were negative at 5 days. Vancomycin was continued for 2 weeks post discharge. Patient had endoscopy and gastritis was found and patient did continue with proton pump inhibitor. Patient's diabetes was controlled on her home regimen. Patient was found to have cardiopathy of unknown etiology. She did refuse a cardiac catheterization but her cardiac stress test was worrisome for ischemic cardiomyopathy. Her medications were adjusted but she was unable to tolerate beta liliana and RAD inhibitor due to hypotension patient was also found to have thyroid disease for which she is under surveillance by her primary care provider. She was discharged home with a LifeVest Pt Condition on Discharge: Good Discharge Disposition: Disch w/ Home Health Serv Discharge Time: > 30 minutes Discharge Instructions DIET: Follow Instructions for: Diabetic Diet Activities you can perform: Regular-No Restrictions Follow up Referrals: Cardiology - 2 Weeks with [facility] PCP Follow-up - 1 Week New Medications: Aspirin (Aspirin) 325 Mg Tab 325 MG PO DAILY for chf, #30 TAB Furosemide (Furosemide) 20 Mg Tab 10 MG PO EVERY OTHER DAY for chf, #15 TAB Lisinopril (Lisinopril) 5 Mg Tab 2.5 MG PO DAILY for chf, #15 TAB Continued Medications: Albuterol Neb (Albuterol Neb) 2.5 Mg/0.5 Ml Neb 2.5 MG NEB Q4HR NEB PRN for SHORTNESS OF BREATH, EA Note: The Albuterol Sulfate Inhalation Solution is concentrated and must be diluted. Read complete instructions carefully before using. Atorvastatin (Atorvastatin) 10 Mg Tab 10 MG PO HS for Cholesterol Management, #30 TAB 0 Refills Budesonide-Formoterol Inh (Symbicort Inh) 80-4.5 Mcg/Act Aero 2 PUFF INH Q12HR for Asthma Management, #1 INHALER 0 Refills Fluticasone Nasal [place] (Flonase Nasal [place]) 50 Mcg/Act [place] 50 MCG EACH NARE BID PRN for ALLERGIES, #1 BOTTLE 0 Refills Guaifenesin-Codeine Liq (Guaifenesin AC Liq) 100-10 Mg/5 Ml Syrp 5 ML PO Q6H PRN for COUGH, #1 BOTTLE 0 Refills Hydrocodone-Guaifenesin Liq (Flowtuss Liq) 2.5-200 Mg/5 Ml Soln 5 ML PO Q6H PRN for cough, #120 ML 0 Refills Ipratropium-Albuterol Neb (Duoneb) 0.5-2.5 Mg/3 Ml Neb 1 NEBULE INH Q6HR NEB for Breathing Treatment, #60 NEBULE 0 Refills Lactic Acid (Ammonium Lactate) (Amlactin) 12 % Lot 1 APPLIC TOPICAL BID for Dry Skin, #1 BOTTLE Metformin (Metformin) 500 Mg Tab 500 MG PO BIDPC for Blood Sugar Management, #60 TAB 0 Refills With meals Montelukast (Montelukast) 10 Mg Tab 10 MG PO HS, #30 TAB 0 Refills Ondansetron (Zofran) 8 Mg Tab 8 MG PO TID for Nausea/Vomiting, #28 TAB 0 Refills Discontinued Medications: Aspirin DR (Aspirin 81) 81 Mg Tabdr 81 MG PO DAILY, TAB 0 Refills Levofloxacin (Levaquin) 500 Mg Tablet 500 MG PO DAILY for Infection for 7 Days, #7 TAB 0 Refills Margarita Cueva MD Feb 14, 2017 17:05
== END 2017-02-02 22:23 | disposition home health service (06) | DRG 178 ==
LOC: PHEFT 16:33 → PHEDA 23:12 → PH3A 01-28 00:03
PROVIDERS: ADMIT Hospitalist; ATTEND Hospitalist
PROC: 0DB68ZX Excision of Stomach, Via Natural or Artificial Opening Endoscopic, Diagnostic (ICD-10-PCS; 2017-01-30)
PROC: 0DBK8ZX Excision of Ascending Colon, Via Natural or Artificial Opening Endoscopic, Diagnostic (ICD-10-PCS; 2017-01-30)
PROC: 0DBN8ZX Excision of Sigmoid Colon, Via Natural or Artificial Opening Endoscopic, Diagnostic (ICD-10-PCS; 2017-01-30)
PROC: 0DBH8ZX Excision of Cecum, Via Natural or Artificial Opening Endoscopic, Diagnostic (ICD-10-PCS; 2017-01-30)
PROC: 0D5K8ZZ Destruction of Ascending Colon, Via Natural or Artificial Opening Endoscopic (ICD-10-PCS; 2017-01-30)
PROC: 0D5H8ZZ Destruction of Cecum, Via Natural or Artificial Opening Endoscopic (ICD-10-PCS; 2017-01-30)
PROC: 02HV33Z Insertion of Infusion Device into Superior Vena Cava, Percutaneous Approach (ICD-10-PCS; principal; 2017-02-02)
PROC: B548ZZA Ultrasonography of Superior Vena Cava, Guidance (ICD-10-PCS; 2017-02-02)
DX: J69.0 Pneumonitis due to inhalation of food and vomit (principal); I42.9 Cardiomyopathy, unspecified; B95.5 Unspecified streptococcus as the cause of diseases classified elsewhere; E11.9 Type 2 diabetes mellitus without complications; D12.0 Benign neoplasm of cecum; I10 Essential (primary) hypertension; E87.6 Hypokalemia; K29.70 Gastritis, unspecified, without bleeding; R94.6 Abnormal results of thyroid function studies; E78.5 Hyperlipidemia, unspecified; J45.909 Unspecified asthma, uncomplicated; K21.9 Gastro-esophageal reflux disease without esophagitis; R11.2 Nausea with vomiting, unspecified; I44.7 Left bundle-branch block, unspecified
CPT/HCPCS: 36569; 36600; 71010; 71020; 71260; 74177; 76937; 78452; 80048; 80053; 80074; 80202; 82805; 82948; 83690; 83735; 84132; 84439; 84443; 84480; 85025; 86140; 87040; 87449; 87804; 88305; 88312; 93005; 93017; 93306; 94640; 94664; 96361; 96365; 96375; A9502; J1815; J1956; J2405; J2785; J2930; J3370; J7030; J7050; J7120; J7512; J7613; Q0163; Q9963; Q9967

== ENCOUNTER 2017-03-10 17:59 | Inpatient (IN) | payer OTHER, MEDICARE ==
[~2017-03-10] VITALS: Ht 162.6 cm; Wt 64.3 kg
[~2017-03-10 17:59] MED LIST changes: -ALBU0.08 NEB; -ASPI-110 PO; +ASPI325T PO; -CIPR-9 PO; +FURO20TA PO; +HYDR1SOL20 PO; +LISI-519 PO; +ZOFR8TAB PO
[2017-03-10 18:03] VITALS: BP 131/74; PULSE 111; RESP 22; TEMP 98.3; O2SAT 97
[2017-03-10] MEDS ORDERED: methylPREDNISolone SOD SUCC 125 MG/2 ML VIAL IV PUSH ONE (18:15)
[2017-03-10] MEDS ORDERED: RESP: ALBUTEROL 2.5 MG/IPRATROPIUM 0.5 MG NEB (SCH) INH ONE (18:15)
[2017-03-10] MEDS ORDERED: FUROSEMIDE 40 MG/4 ML VIAL IVP ONE (18:15)
[2017-03-10] MEDS ORDERED: SODIUM CHLORIDE 0.9% FLUSH 10 ML FLUSH IVF PRN (18:15)
[2017-03-10 18:25] VITALS: O2SAT 98
--- NOTE | 2017-03-10 18:29 | PD ---
HPI Chief Complaint: Respiratory Symptoms Time Seen by Provider: 18:12 Travel History International Travel<30 days: No Contact w/Intl Traveler<30days: No Traveled to known affect area: No History of Present Illness HPI patient was admitted on jan 30 or so for pna, during that admission patient was found to have fairly severe cardiomyopathy with 28% EF, along the way patient was treated aggressively with multiple abx including fluoroquinolones and vancomycin. bacteremia resolved, pna resolved on cxr. now about a month later, patient states she continues to have cough, prod of white sputum, no fever, sob, worse with activity and laying flat. states that her albuterol is not helping her sob, but the medication we give her here seems to help her more. chart and rn notes reviewed pcp dr stover ([facility]) cardio: abbe pmhx: cardiomyopathy with 28% ef, global hypokenisis, htn, copd, chf PFSH Past Medical History Hx Anticoagulant Therapy: Yes (ASA 81 MG) Asthma: Yes Heart Rhythm Problems: No Cancer: No Cardiac Catheterization: No Cardiovascular Problems: Yes High Cholesterol: Yes Chemotherapy: No Chest Pain: Yes (when cough alot) Congestive Heart Failure: No Cerebrovascular Accident: No Diabetes: Yes Diminished Hearing: No Endocrine: Yes Gastrointestinal Disorders: Yes GERD: Yes Genitourinary: No Headaches: No Hiatal Hernia: No Heparin Induced Thrombocytopen: No Hypertension: Yes Immune Disorder: No Implanted Vascular Access Dvce: No Musculoskeletal: Yes Neurologic: No Psychiatric: No Reproductive: No Respiratory: Yes (ASTHMA) Immunizations Current: Yes Radiation Therapy: No Seizures: No Sleep Apnea: No Ulcer: No Menopausal: Yes : 1 Para: 1 Tubal Ligation: Yes Past Surgical History Abdominal Surgery: Yes (gall bladder removed) Cardiac Surgery: No Section: Yes Cholecystectomy: Yes Coronary Artery Bypass Graft: No Ear Surgery: No Endocrine Surgery: No Eye Surgery: No Genitourinary Surgery: No Gynecologic Surgery: Yes (C SECTION) Hysterectomy: Yes Neurologic Surgery: No Oral Surgery: No Thoracic Surgery: No Other Surgery: Yes (SINUS SURGERY) Social History Alcohol Use: No Tobacco Use: No Substance Use: No Allergies-Medications (Allergen,Severity, Reaction): Coded Allergies: gadodiamide (Unverified Allergy, Severe, Rash, 03/10/17) iodixanol (Unverified Allergy, Severe, Rash, 03/10/17) ceftriaxone (Unverified Allergy, Mild, RASH, 03/10/17) penicillin G (Unverified Allergy, Mild, Nausea/Vomiting, 03/10/17) Reported Meds & Prescriptions Reported Meds & Active Scripts Active Aspirin 325 Mg Tab 325 Mg PO DAILY Amlactin (Lactic Acid (Ammonium Lactate)) 12 % Lot 1 Applic TOPICAL BID Duoneb (Ipratropium-Albuterol Neb) 0.5-2.5 Mg/3 Ml Neb 1 Nebule INH Q6HR NEB Reported Furosemide 20 Mg Tab 10 Mg PO EVERY OTHER DAY Atorvastatin (Atorvastatin Calcium) 10 Mg Tab 10 Mg PO HS Albuterol Neb (Albuterol Sulfate) 2.5 Mg/0.5 Ml Neb 2.5 Mg NEB Q4HR NEB PRN Note: The Albuterol Sulfate Inhalation Solution is concentrated and must be diluted. Read complete instructions carefully before using. Symbicort Inh (Budesonide/Formoterol Fumarate) 80-4.5 Mcg/Act Aero 2 Puff INH Q12HR Flonase Nasal [place] (Fluticasone Nasal [place]) 50 Mcg/Act [place] 50 Mcg EACH NARE BID PRN Metformin (Metformin HCl) 500 Mg Tab 500 Mg PO BIDPC With meals Montelukast (Montelukast Sodium) 10 Mg Tab 10 Mg PO HS Review of Systems General / Constitutional: No: Fever Eyes: No: Visual changes HENT: No: Headaches Cardiovascular: No: Chest Pain or Discomfort Respiratory: Positive: Cough, Shortness of Breath Gastrointestinal: No: Abdominal Pain Genitourinary: No: Dysuria Musculoskeletal: No: Pain Skin: No Rash Neurologic: No: Weakness Psychiatric: No: Depression Endocrine: No: Polydipsia Hematologic/Lymphatic: No: Easy Bruising Physical Exam Narrative GENERAL: SKIN: Warm and dry. HEAD: Atraumatic. Normocephalic. EYES: Pupils equal and round. No scleral icterus. No injection or drainage. ENT: No nasal bleeding or discharge. Mucous membranes pink and moist. NECK: Trachea midline. No JVD. CARDIOVASCULAR: tachycardic rate, Regular rhythm. RESPIRATORY: supraclavicular accessory muscle use. bilateral wheezing with decreased tidal volume GASTROINTESTINAL: Abdomen soft, non-tender, nondistended. Hepatic and splenic margins not palpable. MUSCULOSKELETAL: Extremities without clubbing, cyanosis, or edema. No obvious deformities. NEUROLOGICAL: Awake and alert. No obvious cranial nerve deficits. Motor grossly within normal limits. Five out of 5 muscle strength in the arms and legs. Normal speech. PSYCHIATRIC: Appropriate mood and affect; insight and judgment normal. Data Data Last Documented VS Vital Signs Date Time Temp Pulse Resp B/P (MAP) Pulse Ox O2 Delivery O2 Flow Rate FiO2 03/10/17 19:17 98 Room Air 03/10/17 19:17 102 18 123/72 (89) 03/10/17 18:03 98.3 Orders Orders Complete Blood Count With Diff (03/10/17 18:12) Comprehensive Metabolic Panel (03/10/17 18:12) B-Type Natriuretic Peptide (03/10/17 18:12) Act Partial Throm Time (Ptt) (03/10/17 18:12) Prothrombin Time / Inr (Pt) (03/10/17 18:12) Ckmb (Isoenzyme) Profile (03/10/17 18:12) Troponin I (03/10/17 18:12) Influenzae A/B Antigen (03/10/17 18:12) Iv Access Insert/Monitor (03/10/17 18:12) Electrocardiogram (03/10/17 18:12) Ecg Monitoring (03/10/17 18:12) Oximetry (03/10/17 18:12) Oxygen Administration (03/10/17 18:12) Chest, Single Ap (03/10/17 18:12) Sodium Chloride 0.9% Flush (Ns Flush) (03/10/17 18:15) Furosemide Inj (Lasix Inj) (03/10/17 18:15) Methylprednisolone So Succ Inj (Solumedr (03/10/17 18:15) Albuterol-Ipratropium Neb (Duoneb Neb) (03/10/17 18:15) Labs Laboratory Tests Test 03/10/17 18:25 White Blood Count 7.5 TH/MM3 Red Blood Count 4.16 MIL/MM3 Hemoglobin 12.9 GM/DL Hematocrit 39.0 % Mean Corpuscular Volume 93.7 FL Mean Corpuscular Hemoglobin 30.9 PG Mean Corpuscular Hemoglobin Concent 33.0 % Red Cell Distribution Width 12.3 % Platelet Count 312 TH/MM3 Mean Platelet Volume 7.7 FL Neutrophils (%) (Auto) 36.8 % Lymphocytes (%) (Auto) 36.1 % Monocytes (%) (Auto) 2.2 % Eosinophils (%) (Auto) 24.0 % Basophils (%) (Auto) 0.9 % Neutrophils # (Auto) 2.7 TH/MM3 Lymphocytes # (Auto) 2.7 TH/MM3 Monocytes # (Auto) 0.2 TH/MM3 Eosinophils # (Auto) 1.8 TH/MM3 Basophils # (Auto) 0.1 TH/MM3 CBC Comment DIFF FINAL Differential Comment Prothrombin Time 11.5 SEC Prothromb Time International Ratio 1.0 RATIO Activated Partial Thromboplast Time 23.3 SEC Blood Urea Nitrogen 23 MG/DL Creatinine 1.10 MG/DL Random Glucose 104 MG/DL Total Protein 7.6 GM/DL Albumin 3.3 GM/DL Calcium Level 8.8 MG/DL Alkaline Phosphatase 88 U/L Aspartate Amino Transf (AST/SGOT) 24 U/L Alanine Aminotransferase (ALT/SGPT) 14 U/L Total Bilirubin 0.8 MG/DL Sodium Level 142 MEQ/L Potassium Level 4.0 MEQ/L Chloride Level 108 MEQ/L Carbon Dioxide Level 22.5 MEQ/L Anion Gap 12 MEQ/L Estimat Glomerular Filtration Rate 60 ML/MIN Total Creatine Kinase 91 U/L Troponin I 0.04 NG/ML B-Type Natriuretic Peptide 742 PG/ML MDM Medical Decision Making Medical Screen Exam Complete: Yes Emergency Medical Condition: Yes Medical Record Reviewed: Yes Interpretation(s) st 103, lae, lbbb Differential Diagnosis copd exacer v chf exacerbation v nonstemi v stemi v pna v ptx Narrative Course i believe the "persistent" cough is no longer related to infectious cause but the low flow cardiomyopathy which is causing low level of pulm edema, which in turn irritates and causes copd flare to occur. this was discussed with family at length and patient was advised for observation to optimize (but to understand that this cycle will likely become permanent. Critical Care Narrative CRITICAL CARE NOTE: With evaluation of the patient, labs, EKG, receipt of radiologic studies, administration of medications, reevaluation the patient and discussion of the patient with the admitting physicians, the total critical care time was [45] minutes. Time to perform other separately billable procedures was not included in the critical care time. Diagnosis Primary Impression: dyspnea Disposition: 01 DISCHARGE HOME Condition: Stable Severo Anders MD Mar 10, 2017 18:29
[2017-03-10 18:39] LABS: AUTOMATED NEUTROPHIL # 2.7 TH/MM3 (1.8-7.7); BASOPHIL # 0.1 TH/MM3 (0-0.2); BASOPHIL % 0.9 % (0.0-2.0); EOSINOPHIL # 1.8 TH/MM3 (0-0.4); HEMOGLOBIN 12.9 GM/DL (11.6-15.3); LYMPH % 36.1 % (9.0-44.0); LYMPHOCYTE # 2.7 TH/MM3 (1.0-4.8); MEAN CELL VOLUME 93.7 FL (80.0-100.0); MEAN CORPUSCULAR HEMOGLOBIN 30.9 PG (27.0-34.0); MEAN PLATELET VOLUME 7.7 FL (7.0-11.0); MONO % 2.2 % (0.0-8.0); MONOCYTE # 0.2 TH/MM3 (0-0.9); NEUT % 36.8 % (16.0-70.0); PLATELET COUNT 312 TH/MM3 (150-450); RED BLOOD COUNT 4.16 MIL/MM3 (4.00-5.30); RED CELL DISTRIBUTION WIDTH 12.3 % (11.6-17.2); WHITE BLOOD COUNT 7.5 TH/MM3 (4.0-11.0)
[2017-03-10 18:48] LABS: CHLORIDE 108 MEQ/L (98-107); SODIUM (NA) 142 MEQ/L (136-145)
[2017-03-10 18:51] LABS: ALBUMIN 3.3 GM/DL (3.4-5.0); BICARBONATE 22.5 MEQ/L (21.0-32.0); CALCIUM 8.8 MG/DL (8.5-10.1)
[2017-03-10 18:52] LABS: BLOOD UREA NITROGEN 23 MG/DL (7-18); GLUCOSE,RANDOM 104 MG/DL (74-106)
[2017-03-10 18:53] LABS: PROTHROMBIN TIME - PATIENT 11.5 SEC (9.8-11.6)
[2017-03-10 18:54] LABS: ALT (GPT) 14 U/L (10-53)
[2017-03-10] MEDS ORDERED: FURO20TA PO (18:54)
[2017-03-10 18:55] LABS: AST (GOT) 24 U/L (15-37); GLOMERULAR FILTRATION RATE 60 ML/MIN (>89)
[2017-03-10 18:56] LABS: TOTAL BILIRUBIN ADULT 0.8 MG/DL (0.2-1.0); TOTAL PROTEIN 7.6 GM/DL (6.4-8.2)
[2017-03-10 18:57] LABS: ALKALINE PHOSPHATASE 88 U/L (45-117)
[2017-03-10 18:59] LABS: TROPONIN I 0.04 NG/ML (0.02-0.05)
[2017-03-10 19:17] VITALS: BP 123/72; PULSE 102; RESP 18; O2SAT 98
--- NOTE | 2017-03-10 19:43 | RADRPT ---
EXAM DATE/TIME: 03/10/2017 18:44 [facility] COMPARISON: CHEST SINGLE AP, February 02, 2017, 11:57. INDICATIONS : Coughing and shortness of breath. MEDICAL HISTORY : Hypercholesterolemia. Hypertension Asthma, SURGICAL HISTORY : None. ENCOUNTER: Initial ACUITY: 1 month PAIN SCORE: 0/10 LOCATION: Bilateral chest FINDINGS: A single view of the chest demonstrates the lungs to be symmetrically aerated without evidence of mas s, infiltrate or effusion. Mild prominence of the interstitial markings throughout both lungs simila r to prior chest x-rays. The cardiomediastinal contours are unremarkable. Osseous structures are in tact. CONCLUSION: No infiltrates seen. Jose Gant MD on March 10, 2017 at 19:32 Board Certified Radiologist. This report was verified electronically.
[2017-03-10] MEDS ORDERED: MAGNESIUM HYDROXIDE SUSP 30 ML CUP PO PRN (20:15)
[2017-03-10] MEDS ORDERED: LACTULOSE SYRUP 20 GM/30 ML CUP PO PRN (20:15)
[2017-03-10] MEDS ORDERED: BISACODYL 10 MG SUPP RECTAL PRN (20:15)
[2017-03-10] MEDS ORDERED: SENNOSIDES 8.6 MG TAB PO PRN (20:15)
[2017-03-10] MEDS ORDERED: NALOXONE HCL 0.4 MG/ML AMP IV PUSH PRN (20:15)
[2017-03-10] MEDS ORDERED: SODIUM CHLORIDE 0.9% FLUSH 10 ML FLUSH IV FLUSH PRN (20:15)
[2017-03-10 20:44] VITALS: BP 127/79; PULSE 93; RESP 16; O2SAT 99
[2017-03-10] MEDS: INSULIN ASPART SUPPLEMENTAL SCALE SQ SCH (21:00)
[2017-03-10] MEDS ORDERED: FLUTICASONE PROPIONATE 50 MCG/ACT 16 GM NASAL SPRAY NASAL PRN (21:00)
[2017-03-10] MEDS: ATORVASTATIN 10 MG TAB PO SCH (21:07)
[2017-03-10] MEDS: MONTELUKAST SODIUM 10 MG TAB PO SCH (21:07)
[2017-03-10] MEDS: BUDESONIDE-FORMOTEROL 80/4.5 MCG INHALER INH SCH (21:07)
[2017-03-10] MEDS: SODIUM CHLORIDE 0.9% FLUSH 10 ML FLUSH IV FLUSH SCH (21:09)
[2017-03-10 21:31] VITALS: BP 128/82; PULSE 99; RESP 20; TEMP 97.2; O2SAT 99
[2017-03-10 21:33] VITALS: PULSE 94
[2017-03-10] MEDS: RESP: ALBUTEROL 2.5 MG/IPRATROPIUM 0.5 MG NEB (SCH) INH (22:13)
[2017-03-10] MEDS: BENZONATATE 100 MG CAP PO PRN (23:25)
[2017-03-11] VITALS (7 sets, daily range): BP systolic 115–136; BP diastolic 65–76; PULSE 97–116; RESP 20–24; TEMP 96.2–98.8; O2SAT 96–98
[2017-03-11] MEDS: RESP: ALBUTEROL 2.5 MG/IPRATROPIUM 0.5 MG NEB (SCH) INH ×4 (03:36→19:17)
[2017-03-11] MEDS: INSULIN ASPART SUPPLEMENTAL SCALE SQ SCH ×4 (07:51→21:00)
[2017-03-11 07:56] LABS: AUTOMATED NEUTROPHIL # 1.4 TH/MM3 (1.8-7.7); BASOPHIL % 0.6 % (0.0-2.0); EOSINOPHIL % 0.5 % (0.0-4.0); HEMATOCRIT 36.2 % (35.0-46.0); LYMPH % 46.1 % (9.0-44.0); LYMPHOCYTE # 1.4 TH/MM3 (1.0-4.8); MEAN CELL VOLUME 94.1 FL (80.0-100.0); MEAN CORPUSCULAR HEMOGLOBIN 31.3 PG (27.0-34.0); MEAN CORPUSCULAR HGB CONC 33.2 % (32.0-36.0); MEAN PLATELET VOLUME 7.7 FL (7.0-11.0); MONO % 5.7 % (0.0-8.0); MONOCYTE # 0.2 TH/MM3 (0-0.9); NEUT % 47.1 % (16.0-70.0); PLATELET COUNT 288 TH/MM3 (150-450); RED BLOOD COUNT 3.85 MIL/MM3 (4.00-5.30)
[2017-03-11] MEDS ORDERED: ASPI81CH CHEW (08:02)
[2017-03-11 08:03] LABS: CHLORIDE 108 MEQ/L (98-107); SODIUM (NA) 142 MEQ/L (136-145)
[2017-03-11 08:08] LABS: ALBUMIN 3.2 GM/DL (3.4-5.0); BICARBONATE 21.1 MEQ/L (21.0-32.0); CALCIUM 8.5 MG/DL (8.5-10.1)
[2017-03-11 08:09] LABS: BLOOD UREA NITROGEN 28 MG/DL (7-18); GLUCOSE,RANDOM 142 MG/DL (74-106)
[2017-03-11 08:12] LABS: ALT (GPT) 14 U/L (10-53); AST (GOT) 18 U/L (15-37); GLOMERULAR FILTRATION RATE 49 ML/MIN (>89)
[2017-03-11 08:13] LABS: TOTAL BILIRUBIN ADULT 0.7 MG/DL (0.2-1.0); TOTAL PROTEIN 7.5 GM/DL (6.4-8.2)
[2017-03-11 08:14] LABS: ALKALINE PHOSPHATASE 85 U/L (45-117)
[2017-03-11] MEDS ORDERED: losartan (08:27)
[2017-03-11] MEDS ORDERED: [UNRECOGNIZED DRUG - OTHER] (08:27)
[2017-03-11] MEDS: BENZONATATE 100 MG CAP PO PRN (08:28)
[2017-03-11] MEDS: BUDESONIDE-FORMOTEROL 80/4.5 MCG INHALER INH SCH ×2 (08:28→21:05)
[2017-03-11] MEDS ORDERED: FUROSEMIDE 20 MG TAB PO SCH (09:00)
[2017-03-11] MEDS ORDERED: INFLUENZA VIRUS VACCINE (QUADRIVALENT) 0.5 ML SYR IM ONE (09:00)
--- NOTE | 2017-03-11 09:40 | HHI.HP ---
[facility] Rachana Ramires M.D. Admission Diagnosis DYSPNEA,CARDIOMYOPATHY Diagnoses: (1) Acute on chronic systolic congestive heart failure Diagnosis: Principal (2) Cardiomyopathy Diagnosis: Principal (3) Acute renal failure superimposed on stage 2 chronic kidney disease Chief Complaint: Cough, shortness of breath Travel History International Travel<30 Days: No Contact w/Intl Traveler <30 Da: No Traveled to Known Affected Are: No History of Present Illness Written by Sridhar Colin, acting as scribe for Dr. Chung on 03/11/17 at 09:24. 66-year-old female with known history of severe cardiomyopathy, chronic systolic congestive heart failure hypertension, hyperlipidemia, diabetes, asthma , gastroesophageal reflux, who presented to the hospital because of worsening cough, shortness of breath, dyspnea, dyspnea on exertion, orthopnea. Patient rather complex history and recently admitted the hospital on 01/28/2017 and was diagnosed at that time with severe cardiomyopathy and now does wear a life Vest. Patient has been undergoing outpatient management with her director digital with Dr. Smart. Patient states that she is on metoprolol, losartan, Lasix every other day. Patient indicates that since she was in the hospital last time she has had a intractable dry nonproductive cough, shortness of breath , dyspnea. Patient states that for the last 5 days it has progressively gotten worse where she cannot lay flat. She does have a 3 pillow orthopnea at this time. Denies any lightheadedness, dizziness, fever, chills or any LE edema. She denies missing any of her cardiac medications. Patient was brought to the hospital by her family because her respiratory status was worsening. She has been using nebulizer without any improvement. She states that she has once get rid of the cough. She did have some posttussive chest wall pain. She did have some transient nonbloody vomiting that resolved a few days ago. Review of Systems Respiratory: COMPLAINS OF: Cough, Shortness of breath Cardiovascular: COMPLAINS OF: Dyspnea on Exertion, Orthopnea Except as stated in HPI: all other systems reviewed are Neg Past Family Social History Past Medical History Severe cardiomyopathy ejection fraction 20-25% Hypertension Hyperlipidemia diabetes Asthma Gastroesophageal reflux Chronic systolic congestive heart failure Past Surgical History Cholecystectomy Hysterectomy Sinus surgery Reported Medications Reported Meds & Active Scripts Active Amlactin (Lactic Acid (Ammonium Lactate)) 12 % Lot 1 Applic TOPICAL BID Duoneb (Ipratropium-Albuterol Neb) 0.5-2.5 Mg/3 Ml Neb 1 Nebule INH Q6HR NEB Reported [losartan ] [metatoprolol] Aspirin 81 Mg Chew 81 Mg CHEW DAILY Furosemide 20 Mg Tab 10 Mg PO EVERY OTHER DAY Atorvastatin (Atorvastatin Calcium) 10 Mg Tab 10 Mg PO HS Albuterol Neb (Albuterol Sulfate) 2.5 Mg/0.5 Ml Neb 2.5 Mg NEB Q4HR NEB PRN Note: The Albuterol Sulfate Inhalation Solution is concentrated and must be diluted. Read complete instructions carefully before using. Symbicort Inh (Budesonide/Formoterol Fumarate) 80-4.5 Mcg/Act Aero 2 Puff INH Q12HR Flonase Nasal [place] (Fluticasone Nasal [place]) 50 Mcg/Act [place] 50 Mcg EACH NARE BID PRN Metformin (Metformin HCl) 500 Mg Tab 500 Mg PO BIDPC With meals Montelukast (Montelukast Sodium) 10 Mg Tab 10 Mg PO HS Allergies: Coded Allergies: gadodiamide (Unverified Allergy, Severe, Rash, 03/10/17) iodixanol (Unverified Allergy, Severe, Rash, 03/10/17) ceftriaxone (Unverified Allergy, Mild, RASH, 03/10/17) penicillin G (Unverified Allergy, Mild, Nausea/Vomiting, 03/10/17) Family History Reviewed is significant for father at 82 with high blood pressure, mother at age 52 from lung cancer and she also had hypertension Social History Patient denies any tobacco, alcohol or illicit drugs Physical Exam Vital Signs Vital Signs Date Time Temp Pulse Resp B/P (MAP) Pulse Ox O2 Delivery O2 Flow Rate FiO2 03/11/17 08:00 96.2 101 20 136/68 (90) 96 03/11/17 04:00 98.0 97 20 122/73 (89) 96 03/11/17 00:00 96.3 98 20 122/65 (84) 98 03/10/17 21:33 94 03/10/17 21:31 97.2 99 20 128/82 (97) 99 03/10/17 21:20 03/10/17 20:44 93 16 127/79 (95) 99 Room Air 03/10/17 19:17 98 Room Air 03/10/17 19:17 102 18 123/72 (89) 98 Room Air 03/10/17 18:59 18 98 Room Air 03/10/17 18:25 98 Room Air 03/10/17 18:03 98.3 111 22 131/74 (93) 97 Physical Exam VS: Reviewed, Afebrile GENERAL: Thin black female, lying awake in bed SKIN: Warm and dry. EYES: No scleral icterus. No injection or drainage. ENT: No nasal bleeding or discharge. Mucous membranes pink and moist. CARDIOVASCULAR: Regular rate and rhythm. no murmurs, Mild JVD on the left side, RESPIRATORY: Difficult to auscultate completely secondary to life Vest. Patient has have faint expiratory wheeze. No rhonchi or rale. No use of accessory muscles on inspiration or expiration. GASTROINTESTINAL: Abdomen soft, non-tender, nondistended. Hepatic and splenic margins not palpable. Extremities: No clubbing, cyanosis, or edema. No obvious deformities. MUSCULOSKELETAL: Extremities without clubbing, cyanosis, or edema. No obvious deformities. grossly intact ROM with 5/5 strength in upper and lower extremities proximally NEUROLOGICAL: Awake and alert. No obvious cranial nerve deficits. No facial droop nor slurred speech noted. PSYCHIATRIC: Appropriate mood and affect; insight and judgment normal. Laboratory Laboratory Tests Test 03/10/17 18:25 03/10/17 20:29 03/11/17 00:40 03/11/17 07:40 White Blood Count 7.5 3.0 Red Blood Count 4.16 3.85 Hemoglobin 12.9 12.0 Hematocrit 39.0 36.2 Mean Corpuscular Volume 93.7 94.1 Mean Corpuscular Hemoglobin 30.9 31.3 Mean Corpuscular Hemoglobin Concent 33.0 33.2 Red Cell Distribution Width 12.3 12.0 Platelet Count 312 288 Mean Platelet Volume 7.7 7.7 Neutrophils (%) (Auto) 36.8 47.1 Lymphocytes (%) (Auto) 36.1 46.1 Monocytes (%) (Auto) 2.2 5.7 Eosinophils (%) (Auto) 24.0 0.5 Basophils (%) (Auto) 0.9 0.6 Neutrophils # (Auto) 2.7 1.4 Lymphocytes # (Auto) 2.7 1.4 Monocytes # (Auto) 0.2 0.2 Eosinophils # (Auto) 1.8 0.0 Basophils # (Auto) 0.1 0.0 CBC Comment DIFF FINAL DIFF FINAL Differential Comment Prothrombin Time 11.5 Prothromb Time International Ratio 1.0 Activated Partial Thromboplast Time 23.3 Blood Urea Nitrogen 23 28 Creatinine 1.10 1.30 Random Glucose 104 142 Total Protein 7.6 7.5 Albumin 3.3 3.2 Calcium Level 8.8 8.5 Alkaline Phosphatase 88 85 Aspartate Amino Transf (AST/SGOT) 24 18 Alanine Aminotransferase (ALT/SGPT) 14 14 Total Bilirubin 0.8 0.7 Sodium Level 142 142 Potassium Level 4.0 4.2 Chloride Level 108 108 Carbon Dioxide Level 22.5 21.1 Anion Gap 12 13 Estimat Glomerular Filtration Rate 60 49 Total Creatine Kinase 91 Troponin I 0.04 0.04 0.03 0.02 B-Type Natriuretic Peptide 742 Date/Time Source Procedure Growth Status 03/10/17 18:25 Nasal Washing Influenza Types A,B Antigen (DARIO) - Final NEGATIVE FOR FLU A AND B ANTIGEN.... Complete Result Diagram: 03/11/1740 03/11/17739 Imaging Last Impressions Chest X-Ray 03/10/171811 Signed Impressions: Service Date/Time: Friday, March 10, 2017 18:44 - CONCLUSION: No infiltrates seen. Jose Gant MD [place] VTE Risk Assessment Caprini VTE Risk Assessment: Mod/High Risk (score >= 2) Caprini Risk Assessment Model Point Value = 1 Point Value = 2 Point Value = 3 Point Value = 5 Age 41-60 Minor surgery BMI > 25 kg/m2 Swollen legs Varicose veins or History of unexplained or recurrent spontaneous Oral contraceptives or hormone replacement Sepsis (< 1 month) Serious lung disease, including pneumonia (< 1 month) Abnormal pulmonary function Acute myocardial infarction Congestive heart failure (< 1 month) History of inflammatory bowel disease Medical patient at bed rest Age 61-74 Arthroscopic surgery Major open surgery (> 45 min) Laparoscopic surgery (> 45 min) Malignancy Confined to bed (> 72 hours) Immobilizing plaster cast Central venous access Age >= 75 History of VTE Family history of VTE Factor V Leiden Prothrombin [id number] Lupus anticoagulant Anticardiolipin antibodies Elevated serum homocysteine Heparin-induced thrombocytopenia Other congenital or acquired thrombophilia Stroke (< 1 month) Elective arthroplasty Hip, pelvis, or leg fracture Acute spinal cord injury (< 1 month) Prophylaxis Regimen Total Risk Factor Score Risk Level Prophylaxis Regimen 0-1 Low Early ambulation 2 Moderate Order ONE of the following: *Sequential Compression Device (SCD) *Heparin 5000 units SQ BID 3-4 Higher Order ONE of the following medications: *Heparin 5000 units SQ TID *Enoxaparin/Lovenox 40 mg SQ daily (WT < 150 kg, CrCl > 30 mL/min) *Enoxaparin/Lovenox 30 mg SQ daily (WT < 150 kg, CrCl > 10-29 mL/min) *Enoxaparin/Lovenox 30 mg SQ BID (WT < 150 kg, CrCl > 30 mL/min) AND/OR *Sequential Compression Device (SCD) 5 or more Highest Order ONE of the following medications: *Heparin 5000 units SQ TID (Preferred with Epidurals) *Enoxaparin/Lovenox 40 mg SQ daily (WT < 150 kg, CrCl > 30 mL/min) *Enoxaparin/Lovenox 30 mg SQ daily (WT < 150 kg, CrCl > 10-29 mL/min) *Enoxaparin/Lovenox 30 mg SQ BID (WT < 150 kg, CrCl > 30 mL/min) AND *Sequential Compression Device (SCD) Assessment and Plan Assessment and Plan Shortness of breath - Likely multifactorial as below, chest x-ray and been reviewed by Dr. Chung shows a very mild diffuse infiltrates possibly suggestive of pulmonary edema possible Acute on chronic systolic congestive heart failure -Will need to obtain accurate medication list -continue beta liliana, losartan -Start Lasix 40 mg IV every 12 -Strict input and output -Recent echocardiogram shows left trigger function severely reduced with ejection fraction 20-25% possible acute asthma exacerbation triggered by URI -Continue nebulizer treatments every 6 hours -Solu-Medrol 125 mg IV every 8 hours -Continue home medications Acute renal failure superimposed on chronic kidney disease stage II -Continue monitor renal function secondary to increased diuresis Hypertension, hyperlipidemia, severe cardiomyopathy -Continue home medications -Patient to continue to wear LifeVest Diabetes -Accu-Cheks with sliding scale insulin DVT prevention -Sequential compression devices This note was transcribed by patricioibpooja Colin. I, Tony Chung, personally performed the history, physical exam, and medical decision making; and confirmed the accuracy of information in the transcribed note. Authenticated by Tony Chung on 11:42 AM on 03/11/17. All orders entered by Calin Colin were discretion Sridhar Colin Mar 11, 2017 09:40 Tony Chung MD Mar 11, 2017 11:45
[2017-03-11] MEDS ORDERED: LOSA50TA PO (10:57)
[2017-03-11] MEDS ORDERED: METO25TA6 PO (10:57)
[2017-03-11] MEDS: RESP: ALBUTEROL 2.5 MG/IPRATROPIUM 0.5 MG NEB (PRN) NEB (12:15)
[2017-03-11] MEDS: methylPREDNISolone SOD SUCC 125 MG/2 ML VIAL IV SCH ×2 (12:21→18:23)
[2017-03-11] MEDS: POTASSIUM CHLORIDE 10 MEQ CONTROLLED RELEASE TAB PO SCH ×2 (12:22→21:05)
[2017-03-11] MEDS: FUROSEMIDE 40 MG/4 ML VIAL IV PUSH SCH ×2 (12:23→18:23)
[2017-03-11] MEDS: SODIUM CHLORIDE 0.9% FLUSH 10 ML FLUSH IV FLUSH SCH ×2 (12:23→21:05)
[2017-03-11] MEDS: METOPROLOL SUCCINATE 25 MG EXTENDED RELEASE TAB PO SCH (12:25)
[2017-03-11] MEDS: LOSARTAN 50 MG TAB PO SCH (12:33)
[2017-03-11] MEDS: ASPIRIN 325 MG TAB PO SCH (13:24)
[2017-03-11] MEDS: guaiFENesin/CODEINE SYRUP 200 MG/20 MG/10 ML CUP PO PRN ×2 (14:31→21:05)
--- NOTE | 2017-03-11 20:39 | EKG ---
Date Performed: 03/11/2017 Time Performed: 06:28:36 PTAGE: 66 years EKG: Sinus rhythm WITH SINUS ARRHYTHMIA LEFT BUNDLE BRANCH BLOCK ABNORMAL ECG PREVIOUS TRACING : 03/11/2017 00.28 DOCTOR: Franki Martins Interpretating Date/Time 03/11/2017 20:37:48
--- NOTE | 2017-03-11 20:43 | EKG ---
Date Performed: 03/11/2017 Time Performed: 00:28:33 PTAGE: 66 years EKG: Sinus rhythm LEFT BUNDLE BRANCH BLOCK ABNORMAL ECG PREVIOUS TRACING : 03/10/2017 18.22 DOCTOR: Franki Martins Interpretating Date/Time 03/11/2017 20:39:33
--- NOTE | 2017-03-11 20:49 | EKG ---
Date Performed: 03/10/2017 Time Performed: 18:22:17 PTAGE: 66 years EKG: SINUS TACHYCARDIA WITH SHORT PA INTERVAL POSSIBLE LEFT ATRIAL ENLARGEMENT LEFT BUNDLE BRANC H BLOCK ABNORMAL ECG PREVIOUS TRACING : 01/27/2017 23.57 DOCTOR: Franki Martins Interpretating Date/Time 03/11/2017 20:44:16
--- NOTE | 2017-03-11 20:49 | EKG ---
Date Performed: 03/10/2017 Time Performed: 18:22:17 PTAGE: 66 years EKG: SINUS TACHYCARDIA WITH SHORT ND INTERVAL POSSIBLE LEFT ATRIAL ENLARGEMENT LEFT BUNDLE BRANC H BLOCK ABNORMAL ECG PREVIOUS TRACING : 01/27/2017 23.57 DOCTOR: Franki Martins Interpretating Date/Time 03/11/2017 20:44:16
--- NOTE | 2017-03-11 20:49 | EKG ---
Date Performed: 03/10/2017 Time Performed: 18:22:17 PTAGE: 66 years EKG: SINUS TACHYCARDIA WITH SHORT MS INTERVAL POSSIBLE LEFT ATRIAL ENLARGEMENT LEFT BUNDLE BRANC H BLOCK ABNORMAL ECG PREVIOUS TRACING : 01/27/2017 23.57 DOCTOR: Franki Martins Interpretating Date/Time 03/11/2017 20:44:16
[2017-03-11] MEDS ORDERED: FAMOTIDINE 20 MG TAB PO SCH (21:00)
[2017-03-11] MEDS: MONTELUKAST SODIUM 10 MG TAB PO SCH (21:04)
[2017-03-11] MEDS: ATORVASTATIN 10 MG TAB PO SCH (21:05)
[2017-03-12] VITALS: BP 117/70; PULSE 97; RESP 18; TEMP 97.2; O2SAT 96
[2017-03-12] MEDS: methylPREDNISolone SOD SUCC 125 MG/2 ML VIAL IV SCH ×2 (00:17→09:10)
[2017-03-12] MEDS: RESP: ALBUTEROL 2.5 MG/IPRATROPIUM 0.5 MG NEB (PRN) NEB (02:37)
[2017-03-12] MEDS: guaiFENesin/CODEINE SYRUP 200 MG/20 MG/10 ML CUP PO PRN ×2 (03:16→09:24)
[2017-03-12 03:52] VITALS: BP 133/84; PULSE 98; RESP 21; TEMP 96.4; O2SAT 99
[2017-03-12 06:50] LABS: AUTOMATED NEUTROPHIL # 4.9 TH/MM3 (1.8-7.7); BASOPHIL % 0.6 % (0.0-2.0); HEMATOCRIT 35.3 % (35.0-46.0); HEMOGLOBIN 11.6 GM/DL (11.6-15.3); LYMPH % 13.4 % (9.0-44.0); LYMPHOCYTE # 0.8 TH/MM3 (1.0-4.8); MEAN CELL VOLUME 94.5 FL (80.0-100.0); MEAN CORPUSCULAR HEMOGLOBIN 31.1 PG (27.0-34.0); MEAN PLATELET VOLUME 8.1 FL (7.0-11.0); MONO % 3.6 % (0.0-8.0); MONOCYTE # 0.2 TH/MM3 (0-0.9); NEUT % 82.4 % (16.0-70.0); PLATELET COUNT 268 TH/MM3 (150-450); RED BLOOD COUNT 3.73 MIL/MM3 (4.00-5.30); RED CELL DISTRIBUTION WIDTH 12.6 % (11.6-17.2); WHITE BLOOD COUNT 5.9 TH/MM3 (4.0-11.0)
[2017-03-12 07:05] LABS: BICARBONATE 24.4 MEQ/L (21.0-32.0); CALCIUM 8.8 MG/DL (8.5-10.1); MAGNESIUM 2.3 MG/DL (1.5-2.5)
[2017-03-12 07:24] LABS: CREATININE 1.6 MG/DL (0.50-1.00)
[2017-03-12 08:00] VITALS: BP 129/70; PULSE 102; RESP 19; TEMP 97.1; O2SAT 96
[2017-03-12] MEDS: INSULIN ASPART SUPPLEMENTAL SCALE SQ SCH (08:00)
[2017-03-12] MEDS: RESP: ALBUTEROL 2.5 MG/IPRATROPIUM 0.5 MG NEB (SCH) INH (08:26)
[2017-03-12] MEDS: FUROSEMIDE 40 MG/4 ML VIAL IV PUSH SCH (09:10)
[2017-03-12] MEDS: BUDESONIDE-FORMOTEROL 80/4.5 MCG INHALER INH SCH (09:11)
[2017-03-12] MEDS: METOPROLOL SUCCINATE 25 MG EXTENDED RELEASE TAB PO SCH (09:11)
[2017-03-12] MEDS: ASPIRIN 325 MG TAB PO SCH (09:11)
[2017-03-12] MEDS: LOSARTAN 50 MG TAB PO SCH (09:11)
[2017-03-12] MEDS: POTASSIUM CHLORIDE 10 MEQ CONTROLLED RELEASE TAB PO SCH (09:11)
[2017-03-12] MEDS: SODIUM CHLORIDE 0.9% FLUSH 10 ML FLUSH IV FLUSH SCH (09:24)
[2017-03-12] MEDS ORDERED: PRED10PA PO (10:23)
--- NOTE | 2017-03-12 10:24 | HHI.DCPOC ---
Discharge Care Plan Diagnosis: (1) Acute on chronic systolic congestive heart failure (2) Asthma exacerbation Goals to Promote Your Health * To prevent worsening of your condition and complications * To maintain your health at the optimal level Have your regular doctor check your kidney function and your electrolytes and your next visit. Directions to Meet Your Goals Take your medications as prescribed Follow your dietary instruction Follow activity as directed Keep your appointments as scheduled Take your immunizations and boosters as scheduled If your symptoms worsen call your PCP, if no PCP go to Urgent Care Center or Emergency Room Smoking is Dangerous to Your Health. Avoid second hand smoke Call the 24-hour hour crisis hotline for domestic abuse at Tony Chung MD Mar 12, 2017 10:24
--- NOTE | 2017-03-12 10:24 | HHI.DCPOC ---
Discharge Care Plan Diagnosis: (1) Acute on chronic systolic congestive heart failure (2) Asthma exacerbation Goals to Promote Your Health * To prevent worsening of your condition and complications * To maintain your health at the optimal level Have your regular doctor check your kidney function and your electrolytes and your next visit. Directions to Meet Your Goals Take your medications as prescribed Follow your dietary instruction Follow activity as directed Keep your appointments as scheduled Take your immunizations and boosters as scheduled If your symptoms worsen call your PCP, if no PCP go to Urgent Care Center or Emergency Room Smoking is Dangerous to Your Health. Avoid second hand smoke Call the 24-hour hour crisis hotline for domestic abuse at Tony Chung MD Mar 12, 2017 10:24
--- NOTE | 2017-03-12 10:24 | HHI.DCPOC ---
Discharge Care Plan Diagnosis: (1) Acute on chronic systolic congestive heart failure (2) Asthma exacerbation Goals to Promote Your Health * To prevent worsening of your condition and complications * To maintain your health at the optimal level Have your regular doctor check your kidney function and your electrolytes and your next visit. Directions to Meet Your Goals Take your medications as prescribed Follow your dietary instruction Follow activity as directed Keep your appointments as scheduled Take your immunizations and boosters as scheduled If your symptoms worsen call your PCP, if no PCP go to Urgent Care Center or Emergency Room Smoking is Dangerous to Your Health. Avoid second hand smoke Call the 24-hour hour crisis hotline for domestic abuse at Tony Chung MD Mar 12, 2017 10:24
--- NOTE | 2017-03-12 10:28 | HHI.PR ---
Subjective Remarks Nursing denies any setbacks since last night apart from the patient having them and coughing. Patient says that she is breathing much better, feels like she could be in her home, once to go home. Says that she is urinating well with the Lasix. Objective Vital Signs Date Time Temp Pulse Resp B/P (MAP) Pulse Ox O2 Delivery O2 Flow Rate FiO2 03/12/17 08:00 97.1 102 19 129/70 (89) 96 03/12/17 03:52 96.4 98 21 133/84 (100) 99 03/12/17 00:00 97.2 97 18 117/70 (86) 96 03/11/17 20:00 116 03/11/17 19:57 98.8 113 20 120/76 (91) 96 03/11/17 16:00 97.9 109 20 117/75 (89) 97 03/11/17 12:00 97.5 114 24 115/76 (89) 98 I/O 03/11/17 03/11/17 03/11/17 03/12/17 03/12/17 03/12/17 07:00 15:00 23:00 07:00 15:00 23:00 Intake Total 720 ml 480 ml Balance 720 ml 480 ml Intake Oral 720 ml 480 ml # Voids 3 1 6 2 # Bowel Movements 3 Result Diagram: 03/12/1727 03/12/17626 Objective Remarks No wheezing heard on auscultation, unlabored breathing, no cyanosis, no respiratory distress, no lower extremity edema A/P Assessment and Plan Discharging today. Likely had a multifactorial exacerbation of her dyspnea, more so from an acute asthma exacerbation, less from an acute on chronic congestive heart failure etiology Patient understands that she is to follow-up with her primary care doctor to have her electrolytes and renal function checked. Tony Chung MD Mar 12, 2017 10:28
[2017-03-12] MEDS ORDERED: IPRASOL INH (13:26)
== END 2017-03-12 13:33 | disposition home or self-care (01) | DRG 291 ==
LOC: PHED 17:59 → PHEDA 20:15 → PH3A 21:20 → OBSVTOIN 03-11 13:06
PROVIDERS: ADMIT Hospitalist; ATTEND Hospitalist
DX: I13.0 Hypertensive heart and chronic kidney disease with heart failure and stage 1 through stage 4 chronic kidney disease, or unspecified chronic kidney disease (principal); I50.23 Acute on chronic systolic (congestive) heart failure; N17.9 Acute kidney failure, unspecified; E11.22 Type 2 diabetes mellitus with diabetic chronic kidney disease; I42.9 Cardiomyopathy, unspecified; J45.901 Unspecified asthma with (acute) exacerbation; K21.9 Gastro-esophageal reflux disease without esophagitis; N18.2 Chronic kidney disease, stage 2 (mild); E78.5 Hyperlipidemia, unspecified; Z79.51 Long term (current) use of inhaled steroids; Z79.82 Long term (current) use of aspirin; Z79.84 Long term (current) use of oral hypoglycemic drugs
CPT/HCPCS: 71010; 80048; 80053; 82550; 82948; 83735; 83880; 84484; 85025; 85610; 85730; 87804; 90471; 90686; 93005; 94640; 94664; G0008; G8987-GP; G8988-GP; J1815; J1940; J2930; Q2038

== ENCOUNTER 2017-03-27 23:18 | Emergency (ER) | payer MEDICARE, OTHER ==
[~2017-03-27] VITALS: Ht 162.6 cm; Wt 58.4 kg
[~2017-03-27 23:18] MED LIST changes: +ASPI-516 CHEW; -ASPI325T PO; -GUAISYP4 PO; -HYDR1SOL20 PO; -LISI-519 PO; +LOSA50TA PO; +METO1TAB42 PO; +PRED10PA PO; -ZOFR8TAB PO
[2017-03-27 23:23] VITALS: BP 139/77; PULSE 101; RESP 20; TEMP 97.2; O2SAT 99
[2017-03-27 23:36] VITALS: BP 139/77; PULSE 101; RESP 20; TEMP 97.2; O2SAT 99
[2017-03-27] MEDS ORDERED: METO50TA PO (23:45)
[2017-03-28] MEDS ORDERED: guaiFENesin/CODEINE SYRUP 200 MG/20 MG/10 ML CUP PO ONE (00:30)
[2017-03-28] MEDS ORDERED: RESP: ALBUTEROL 2.5 MG/IPRATROPIUM 0.5 MG NEB (SCH) NEB ONE (00:30)
--- NOTE | 2017-03-28 00:38 | PD ---
HPI Chief Complaint: Cold / Flu Symptoms Time Seen by Provider: 23:54 Travel History International Travel<30 days: No Contact w/Intl Traveler<30days: No Traveled to known affect area: No History of Present Illness HPI Patient has a cough congestion feels chills and has been vomiting for the last few days. Patient has a nebulizer at home which she used for her asthma. Patient is coughing excessively in the ER. Otherwise patient looks calm healthy she is just complaining of cough vomit the last 2 days . she did the nebulizer for the coughing with moderate relief but continues to cough excessively in the ER. PFSH Past Medical History Hx Anticoagulant Therapy: Yes (ASA 81 MG) Asthma: Yes Heart Rhythm Problems: No Cancer: No Cardiac Catheterization: No Cardiovascular Problems: Yes High Cholesterol: Yes Chemotherapy: No Chest Pain: Yes (when cough alot) Congestive Heart Failure: No Cerebrovascular Accident: No Diabetes: Yes Patient Takes Glucophage: Yes Diminished Hearing: No Endocrine: Yes Gastrointestinal Disorders: Yes GERD: Yes Genitourinary: No Headaches: No Hiatal Hernia: No Heparin Induced Thrombocytopen: No Hypertension: Yes Immune Disorder: No Implanted Vascular Access Dvce: No Musculoskeletal: Yes Neurologic: No Psychiatric: No Reproductive: No Respiratory: Yes (ASTHMA) Immunizations Current: Yes Radiation Therapy: No Seizures: No Sleep Apnea: No Ulcer: No Tetanus Vaccination: < 5 Years Influenza Vaccination: Yes Menopausal: Yes : 1 Para: 1 Tubal Ligation: Yes Past Surgical History Abdominal Surgery: Yes (gall bladder removed) Cardiac Surgery: No Section: Yes Cholecystectomy: Yes Coronary Artery Bypass Graft: No Ear Surgery: No Endocrine Surgery: No Eye Surgery: No Genitourinary Surgery: No Gynecologic Surgery: Yes (C SECTION) Hysterectomy: Yes Neurologic Surgery: No Oral Surgery: No Thoracic Surgery: No Other Surgery: Yes (SINUS SURGERY) Family History Family Myocardial Infarction: Yes (brother passed from [place]) Social History Alcohol Use: No Tobacco Use: No Substance Use: No Allergies-Medications (Allergen,Severity, Reaction): Coded Allergies: gadodiamide (Verified Allergy, Severe, Rash, 03/27/17) iodixanol (Verified Allergy, Severe, Rash, 03/27/17) ceftriaxone (Verified Allergy, Mild, RASH, 03/27/17) penicillin G (Verified Allergy, Mild, Nausea/Vomiting, 03/27/17) Reported Meds & Prescriptions Reported Meds & Active Scripts Active Guaifenesin AC Liq (Guaifenesin-Codeine Liq) 100-10 Mg/5 Ml Syrp 10 Ml PO Q6H PRN Ipratropium Neb (Ipratropium [place]) 0.5 Mg/2.5 Ml Amp 0.5 Mg NEB Q6HR NEB Albuterol Neb (Albuterol Sulfate) 1.25 Mg/3 Ml Neb 1.25 Mg NEB Q4HR NEB PRN Duoneb (Ipratropium-Albuterol Neb) 0.5-2.5 Mg/3 Ml Neb 1 Ampule INH Q6HR WHILE AWAKE NEB PRN Amlactin (Lactic Acid (Ammonium Lactate)) 12 % Lot 1 Applic TOPICAL BID Duoneb (Ipratropium-Albuterol Neb) 0.5-2.5 Mg/3 Ml Neb 1 Nebule INH Q6HR NEB Reported Metoprolol Tartrate 50 Mg Tab 50 Mg PO DAILY Losartan (Losartan Potassium) 50 Mg Tab 50 Mg PO DAILY Aspirin 81 Mg Chew 81 Mg CHEW DAILY Furosemide 20 Mg Tab 10 Mg PO EVERY OTHER DAY Atorvastatin (Atorvastatin Calcium) 10 Mg Tab 10 Mg PO HS Albuterol Neb (Albuterol Sulfate) 2.5 Mg/0.5 Ml Neb 2.5 Mg NEB Q4HR NEB PRN Note: The Albuterol Sulfate Inhalation Solution is concentrated and must be diluted. Read complete instructions carefully before using. Symbicort Inh (Budesonide/Formoterol Fumarate) 80-4.5 Mcg/Act Aero 2 Puff INH Q12HR Flonase Nasal [place] (Fluticasone Nasal [place]) 50 Mcg/Act [place] 50 Mcg EACH NARE BID PRN Metformin (Metformin HCl) 500 Mg Tab 500 Mg PO BIDPC With meals Montelukast (Montelukast Sodium) 10 Mg Tab 10 Mg PO HS Review of Systems Except as stated in HPI: all other systems reviewed are Neg Respiratory: Positive: Cough, Shortness of Breath, Wheezing, Sneezing Physical Exam Narrative GENERAL: excessive coughing in exam room no desaturation SKIN: Warm and dry. HEAD: Atraumatic. Normocephalic. EYES: Pupils equal and round. No scleral icterus. No injection or drainage. ENT: No nasal bleeding or discharge. Mucous membranes pink and moist. NECK: Trachea midline. No JVD. CARDIOVASCULAR: Regular rate and rhythm. RESPIRATORY: No accessory muscle use. wheezing diffuse mild coughing multiple times in exam with deep inspiration GASTROINTESTINAL: Abdomen soft, non-tender, nondistended. Hepatic and splenic margins not palpable. MUSCULOSKELETAL: Extremities without clubbing, cyanosis, or edema. No obvious deformities. NEUROLOGICAL: Awake and alert. No obvious cranial nerve deficits. Motor grossly within normal limits. Five out of 5 muscle strength in the arms and legs. Normal speech. PSYCHIATRIC: Appropriate mood and affect; insight and judgment normal. Data Data Last Documented VS Vital Signs Date Time Temp Pulse Resp B/P (MAP) Pulse Ox O2 Delivery O2 Flow Rate FiO2 03/28/17 03:32 98.4 75 18 123/62 (82) 98 Room Air Orders Orders Electrocardiogram (03/28/17 00:25) Complete Blood Count With Diff (03/28/17 00:25) Comprehensive Metabolic Panel (03/28/17 00:25) Lipase (03/28/17 00:25) Chest, Pa & Lat (03/28/17 00:25) Albuterol-Ipratropium Neb (Duoneb Neb) (03/28/17 00:30) Influenzae A/B Antigen (03/28/17 00:25) Group A Rapid Strep Screen (03/28/17 00:25) Guaifen-Cod 200-20 Mg/10ml Liq (Robituss (03/28/17 00:30) Strep Culture (Group A) (03/28/17 00:30) Ed Discharge Order (03/28/17 03:12) Labs Laboratory Tests Test 03/28/17 00:55 White Blood Count 10.6 TH/MM3 Red Blood Count 3.35 MIL/MM3 Hemoglobin 11.0 GM/DL Hematocrit 32.4 % Mean Corpuscular Volume 96.5 FL Mean Corpuscular Hemoglobin 32.8 PG Mean Corpuscular Hemoglobin Concent 34.0 % Red Cell Distribution Width 13.4 % Platelet Count 211 TH/MM3 Mean Platelet Volume 9.3 FL CBC Comment AUTO DIFF Differential Total Cells Counted 100 Neutrophils % (Manual) 75 % Lymphocytes % 21 % Monocytes % 2 % Eosinophils % 2 % Neutrophils # (Manual) 8.0 TH/MM3 Differential Comment FINAL DIFF MANUAL Platelet Estimate NORMAL Platelet Morphology Comment NORMAL Ovalocytes 2+ Blood Urea Nitrogen 39 MG/DL Creatinine 1.40 MG/DL Random Glucose 140 MG/DL Total Protein 6.8 GM/DL Albumin 2.9 GM/DL Calcium Level 8.5 MG/DL Alkaline Phosphatase 136 U/L Aspartate Amino Transf (AST/SGOT) 64 U/L Alanine Aminotransferase (ALT/SGPT) 93 U/L Total Bilirubin 2.1 MG/DL Sodium Level 143 MEQ/L Potassium Level 4.3 MEQ/L Chloride Level 110 MEQ/L Carbon Dioxide Level 20.8 MEQ/L Anion Gap 12 MEQ/L Estimat Glomerular Filtration Rate 45 ML/MIN Lipase 119 U/L [facility] Medical Decision Making Medical Screen Exam Complete: Yes Emergency Medical Condition: Yes Differential Diagnosis viral URI vs chronic fibrosis of lungs vs PNA bacterail Narrative Course Patient given duo nebs given cough syrup and she feels better chest x-ray shows chronic fibrotic picture that was seen prior patient feels better after DuoNeb and a cough medication she is safe for discharge Diagnosis Primary Impression: Bronchitis Patient Instructions: Acute Bronchitis (ED), General Instructions Scripts Guaifenesin-Codeine Liq (Guaifenesin AC Liq) 100-10 Mg/5 Ml Syrp 10 ML PO Q6H Y for COUGH, #1 BOTTLE 0 Refills Prov: Brody Ashton MD 03/28/17 Ipratropium Neb (Ipratropium Neb) 0.5 Mg/2.5 Ml Amp 0.5 MG NEB Q6HR NEB for Breathing Treatment, #60 NEBULE 0 Refills Prov: Brody Ashton MD 03/28/17 Albuterol Neb (Albuterol Neb) 1.25 Mg/3 Ml Neb 1.25 MG NEB Q4HR NEB Y for SHORTNESS OF BREATH, #50 NEBULE 0 Refills Prov: Brody Ashton MD 03/28/17 Disposition: 01 DISCHARGE HOME Condition: Good Brody Ashton MD Mar 28, 2017 00:38
[2017-03-28 01:05] LABS: HEMATOCRIT 32.4 % (35.0-46.0); MEAN CELL VOLUME 96.5 FL (80.0-100.0); MEAN CORPUSCULAR HEMOGLOBIN 32.8 PG (27.0-34.0); PLATELET COUNT 211 TH/MM3 (150-450); RED BLOOD COUNT 3.35 MIL/MM3 (4.00-5.30); RED CELL DISTRIBUTION WIDTH 13.4 % (11.6-17.2); WHITE BLOOD COUNT 10.6 TH/MM3 (4.0-11.0)
[2017-03-28 01:09] VITALS: PULSE 98; RESP 32; O2SAT 99
[2017-03-28 01:14] LABS: CHLORIDE 110 MEQ/L (98-107); HEMO FLAGS AUTO DIFF; POTASSIUM 4.3 MEQ/L (3.5-5.1); SODIUM (NA) 143 MEQ/L (136-145)
--- NOTE | 2017-03-28 01:15 | RADRPT ---
EXAM DATE/TIME: 03/28/2017 00:33 [place] COMPARISON: CHEST PA & LAT, January 27, 2017, 20:01. INDICATIONS : Coughing and short of breath. MEDICAL HISTORY : Hypercholesterolemia. Hypertension Asthma, SURGICAL HISTORY : None. ENCOUNTER: Sequela ACUITY: 1 month PAIN SCORE: 3/10 LOCATION: Bilateral chest FINDINGS: PA and lateral views of the chest demonstrate bilateral diffuse interstitial lung disease mostly in t he lung bases. Cholecystectomy clips. The cardiomediastinal contours are unremarkable. Osseous stru ctures are intact. CONCLUSION: Diffuse interstitial lung disease throughout the lungs predominantly in the lung bases. Has progresse d since January. Danyn Dubose MD on March 28, 2017 at 1:13 Board Certified Radiologist. This report was verified electronically.
[2017-03-28 01:18] LABS: ANION GAP 12 MEQ/L (5-15); BICARBONATE 20.8 MEQ/L (21.0-32.0); BLOOD UREA NITROGEN 39 MG/DL (7-18)
[2017-03-28 01:21] LABS: ALT (GPT) 93 U/L (10-53); AST (GOT) 64 U/L (15-37); GLOMERULAR FILTRATION RATE 45 ML/MIN (>89)
[2017-03-28 01:23] LABS: TOTAL BILIRUBIN ADULT 2.1 MG/DL (0.2-1.0)
[2017-03-28 01:24] LABS: ALKALINE PHOSPHATASE 136 U/L (45-117)
[2017-03-28 02:04] LABS: EOSINOPHILS 2 % (0-4); POLYS (SEG NEUTROPHILS) 75 % (16-70); WBC DIFF SAMPLE 100
[2017-03-28 02:05] LABS: OVALOCYTES 2+ (NORMAL); PLATELET ESTIMATE SMEAR NORMAL (NORMAL); PLATELET MORPHOLOGY NORMAL (NORMAL); SCAN/DIFF FINAL DIFF MANUAL
[2017-03-28 02:23] VITALS: BP 128/90; PULSE 98; RESP 28; O2SAT 97
[2017-03-28] MEDS ORDERED: IPRA0.02 NEB (03:11)
[2017-03-28] MEDS ORDERED: ALBU1.25 NEB (03:11)
[2017-03-28] MEDS ORDERED: GUAISYP4 PO (03:11)
[2017-03-28 03:32] VITALS: BP 123/62; PULSE 75; RESP 18; TEMP 98.4; O2SAT 98
--- NOTE | 2017-03-28 18:36 | EKG ---
Date Performed: 03/28/2017 Time Performed: 00:39:29 PTAGE: 66 years EKG: Sinus rhythm WITH FREQUENT SUPRAVENTRICULAR PREMATURE COMPLEXES MARKED LEFT AXIS DEVIATION LEFT BUNDLE BRANCH BLO CK ABNORMAL ECG PREVIOUS TRACING : 03/11/2017 06.28 Compared to prior tracing no significant change DOCTOR: Giovanni Whitfield Interpretating Date/Time 03/28/2017 18:36:23
== END 2017-03-28 03:33 | disposition home or self-care (01) ==
LOC: PHED 23:18
DX: J40 Bronchitis, not specified as acute or chronic (principal); E11.9 Type 2 diabetes mellitus without complications; E78.00 Pure hypercholesterolemia, unspecified; I10 Essential (primary) hypertension; Z79.84 Long term (current) use of oral hypoglycemic drugs
CPT/HCPCS: 71020; 80053; 83690; 85007; 85027; 87081; 87804; 87880; 93005; 94664; 99285

== ENCOUNTER 2017-04-10 14:06 | Inpatient (IN) | payer OTHER, MEDICARE ==
[2017-04-10] VITALS (9 sets, daily range): BP systolic 113–129; BP diastolic 61–100; PULSE 70–94; RESP 16–20; TEMP 97.1–98.4; O2SAT 97–100
[~2017-04-10 14:06] MED LIST changes: +ALBU1.25 NEB; +GUAISYP4 PO; +IPRA0.02 NEB; -METO1TAB42 PO; +METO50TA PO; -PRED10PA PO
[2017-04-10] MEDS ORDERED: PANTOPRAZOLE SODIUM 40 MG VIAL IV PUSH ONE (14:45)
[2017-04-10] MEDS ORDERED: ONDANSETRON HCL 4 MG/2 ML VIAL IV PUSH ONE (14:45)
--- NOTE | 2017-04-10 14:48 | PD ---
HPI Chief Complaint: Edema Time Seen by Provider: 14:31 Travel History International Travel<30 days: No Contact w/Intl Traveler<30days: No Traveled to known affect area: No History of Present Illness HPI This 66-year-old female is complaining of some ankle swelling and vomiting. The ankle swelling has developed over the last few days. She does have a history of cardiomyopathy and is on Lasix. She was seen here about 10 days ago with complaint of cough. X-ray was negative at that time. At that time she was having paroxysms of cough which showed blood to vomiting. Since being released the cough has subsided but the vomiting is persistent and she says she is now vomiting about once every hour. She has been on Zofran without any response. She denies any chest pain. She does have some trouble breathing. She has a history of cardiomyopathy and has an ejection fraction around 28%. PFSH Past Medical History Hx Anticoagulant Therapy: Yes (ASA 81 MG) Asthma: Yes Heart Rhythm Problems: No Cancer: No Cardiac Catheterization: No Cardiovascular Problems: Yes High Cholesterol: Yes Chemotherapy: No Chest Pain: Yes (when cough alot) Congestive Heart Failure: No Cerebrovascular Accident: No Diabetes: Yes Patient Takes Glucophage: Yes Diminished Hearing: No Endocrine: Yes Gastrointestinal Disorders: Yes GERD: Yes Genitourinary: No Headaches: No Hiatal Hernia: No Heparin Induced Thrombocytopen: No Hypertension: Yes Immune Disorder: No Implanted Vascular Access Dvce: No Musculoskeletal: Yes Neurologic: No Psychiatric: No Reproductive: No Respiratory: Yes (ASTHMA) Immunizations Current: Yes Radiation Therapy: No Seizures: No Sleep Apnea: No Ulcer: No Menopausal: Yes : 1 Para: 1 Tubal Ligation: Yes Past Surgical History Abdominal Surgery: Yes (gall bladder removed) Cardiac Surgery: No Section: Yes Cholecystectomy: Yes Coronary Artery Bypass Graft: No Ear Surgery: No Endocrine Surgery: No Eye Surgery: No Genitourinary Surgery: No Gynecologic Surgery: Yes (C SECTION) Hysterectomy: Yes Neurologic Surgery: No Oral Surgery: No Thoracic Surgery: No Other Surgery: Yes (SINUS SURGERY) Family History Family Myocardial Infarction: Yes (brother passed from [place]) Social History Alcohol Use: No Tobacco Use: No Substance Use: No Allergies-Medications (Allergen,Severity, Reaction): Coded Allergies: gadodiamide (Verified Allergy, Severe, Rash, 04/10/17) iodixanol (Verified Allergy, Severe, Rash, 04/10/17) ceftriaxone (Verified Allergy, Mild, RASH, 04/10/17) penicillin G (Verified Allergy, Mild, Nausea/Vomiting, 04/10/17) Reported Meds & Prescriptions Reported Meds & Active Scripts Active Guaifenesin AC Liq (Guaifenesin-Codeine Liq) 100-10 Mg/5 Ml Syrp 10 Ml PO Q6H PRN Reported Metoprolol Tartrate 50 Mg Tab 50 Mg PO DAILY Losartan (Losartan Potassium) 50 Mg Tab 50 Mg PO DAILY Aspirin 81 Mg Chew 81 Mg CHEW DAILY Furosemide 20 Mg Tab 10 Mg PO EVERY OTHER DAY Atorvastatin (Atorvastatin Calcium) 10 Mg Tab 10 Mg PO HS Albuterol Neb (Albuterol Sulfate) 2.5 Mg/0.5 Ml Neb 2.5 Mg NEB Q4HR NEB PRN Note: The Albuterol Sulfate Inhalation Solution is concentrated and must be diluted. Read complete instructions carefully before using. Symbicort Inh (Budesonide/Formoterol Fumarate) 80-4.5 Mcg/Act Aero 2 Puff INH Q12HR Flonase Nasal [place] (Fluticasone Nasal [place]) 50 Mcg/Act [place] 50 Mcg EACH NARE BID PRN Metformin (Metformin HCl) 500 Mg Tab 500 Mg PO BIDPC With meals Montelukast (Montelukast Sodium) 10 Mg Tab 10 Mg PO HS Review of Systems General / Constitutional: No: Fever, Chills Eyes: No: Diploplia, Blurred Vision HENT: No: Headaches, Vertigo Cardiovascular: No: Chest Pain or Discomfort Respiratory: Positive: Shortness of Breath Gastrointestinal: Positive: Vomiting Genitourinary: No: Frequency, Dysuria Musculoskeletal: No: Myalgias, Arthralgias Skin: No Rash Neurologic: No: Weakness Psychiatric: No: Anxiety Physical Exam Narrative GENERAL: Thin female SKIN: Focused skin assessment warm/dry. HEAD: Atraumatic. Normocephalic. EYES: Pupils equal and round. No scleral icterus. No injection or drainage. ENT: No nasal bleeding or discharge. Mucous membranes pink and moist. NECK: Trachea midline. No JVD. CARDIOVASCULAR: Regular rate and rhythm. No murmur appreciated. RESPIRATORY: No accessory muscle use. Clear to auscultation. Breath sounds equal bilaterally. GASTROINTESTINAL: Abdomen soft, there is epigastric tenderness, nondistended. Hepatic and splenic margins not palpable. MUSCULOSKELETAL: No obvious deformities. No clubbing. No cyanosis. Bilateral 1 + pedal edema NEUROLOGICAL: Awake and alert. No obvious cranial nerve deficits. Motor grossly within normal limits. Normal speech. PSYCHIATRIC: Appropriate mood and affect; insight and judgment normal. Data Data Last Documented VS Vital Signs Date Time Temp Pulse Resp B/P (MAP) Pulse Ox O2 Delivery O2 Flow Rate FiO2 04/10/17 14:10 97.1 94 20 126/73 (90) 100 Orders Orders Complete Blood Count With Diff (04/10/17 14:42) Comprehensive Metabolic Panel (04/10/17 14:42) B-Type Natriuretic Peptide (04/10/17 14:42) Lipase (04/10/17 14:42) Urinalysis - C+S If Indicated (04/10/17 14:42) Magnesium (Mg) (04/10/17 14:42) Chest, Single Ap (04/10/17 14:42) Sodium Chlor 0.9% 1000 Ml Inj (Ns 1000 M (04/10/17 14:45) Ondansetron Inj (Zofran Inj) (04/10/17 14:45) Pantoprazole Inj (Protonix Inj) (04/10/17 14:45) Labs Laboratory Tests Test 04/10/17 15:35 White Blood Count 6.7 TH/MM3 Red Blood Count 3.54 MIL/MM3 Hemoglobin 10.6 GM/DL Hematocrit 34.2 % Mean Corpuscular Volume 96.7 FL Mean Corpuscular Hemoglobin 30.1 PG Mean Corpuscular Hemoglobin Concent 31.1 % Red Cell Distribution Width 14.2 % Platelet Count 291 TH/MM3 Mean Platelet Volume 9.4 FL Neutrophils (%) (Auto) 64.2 % Lymphocytes (%) (Auto) 27.0 % Monocytes (%) (Auto) 7.6 % Eosinophils (%) (Auto) 0.2 % Basophils (%) (Auto) 1.0 % Neutrophils # (Auto) 4.2 TH/MM3 Lymphocytes # (Auto) 1.8 TH/MM3 Monocytes # (Auto) 0.5 TH/MM3 Eosinophils # (Auto) 0.0 TH/MM3 Basophils # (Auto) 0.1 TH/MM3 CBC Comment DIFF FINAL Differential Comment Blood Urea Nitrogen 56 MG/DL Creatinine 2.80 MG/DL Random Glucose 135 MG/DL Total Protein 7.4 GM/DL Albumin 2.9 GM/DL Calcium Level 8.6 MG/DL Magnesium Level 2.4 MG/DL Alkaline Phosphatase 312 U/L Aspartate Amino Transf (AST/SGOT) 398 U/L Alanine Aminotransferase (ALT/SGPT) 379 U/L Total Bilirubin 2.1 MG/DL Sodium Level 140 MEQ/L Potassium Level 5.8 MEQ/L Chloride Level 108 MEQ/L Carbon Dioxide Level 19.5 MEQ/L Anion Gap 13 MEQ/L Estimat Glomerular Filtration Rate 20 ML/MIN Lipase 164 U/L [facility] Medical Decision Making Medical Screen Exam Complete: Yes Emergency Medical Condition: Yes Medical Record Reviewed: Yes Differential Diagnosis Differential includes gastritis, adverse medication reaction, bowel obstruction Narrative Course Lab work and CT scan have been ordered. Disposition will be based on results of these tests Morris Watkins MD Apr 10, 2017 14:48
[2017-04-10] MEDS: SODIUM CHLOR 0.9% 1000 ML INJ 1,000 ML IV SCH ×2 (15:43→18:38)
[2017-04-10 15:45] LABS: AUTOMATED NEUTROPHIL # 4.2 TH/MM3 (1.8-7.7); BASOPHIL # 0.1 TH/MM3 (0-0.2); EOSINOPHIL % 0.2 % (0.0-4.0); HEMATOCRIT 34.2 % (35.0-46.0); HEMO FLAGS DIFF FINAL; LYMPHOCYTE # 1.8 TH/MM3 (1.0-4.8); MEAN CELL VOLUME 96.7 FL (80.0-100.0); MEAN CORPUSCULAR HEMOGLOBIN 30.1 PG (27.0-34.0); MEAN CORPUSCULAR HGB CONC 31.1 % (32.0-36.0); MONO % 7.6 % (0.0-8.0); NEUT % 64.2 % (16.0-70.0); PLATELET COUNT 291 TH/MM3 (150-450); RED BLOOD COUNT 3.54 MIL/MM3 (4.00-5.30); RED CELL DISTRIBUTION WIDTH 14.2 % (11.6-17.2); WHITE BLOOD COUNT 6.7 TH/MM3 (4.0-11.0)
[2017-04-10 15:54] LABS: CHLORIDE 108 MEQ/L (98-107); POTASSIUM 5.8 MEQ/L (3.5-5.1); SODIUM (NA) 140 MEQ/L (136-145)
[2017-04-10 15:57] LABS: ANION GAP 13 MEQ/L (5-15); BICARBONATE 19.5 MEQ/L (21.0-32.0); MAGNESIUM 2.4 MG/DL (1.5-2.5)
[2017-04-10 15:58] LABS: BLOOD UREA NITROGEN 56 MG/DL (7-18)
[2017-04-10 16:00] LABS: ALT (GPT) 379 U/L (10-53); AST (GOT) 398 U/L (15-37); GLOMERULAR FILTRATION RATE 20 ML/MIN (>89)
--- NOTE | 2017-04-10 16:00 | RADRPT ---
EXAM DATE/TIME: 04/10/2017 15:52 [facility] COMPARISON: CHEST PA & LAT, March 28, 2017, 0:33. CHEST SINGLE AP, March 10, 2017, 18:44. INDICATIONS : Short of breath and lower extremity swelling for several days. MEDICAL HISTORY : Hypercholesterolemia. Hypertension. Asthma. SURGICAL HISTORY : None. ENCOUNTER: Initial ACUITY: 3 days PAIN SCORE: 0/10 LOCATION: Bilateral chest FINDINGS: A single view of the chest demonstrates the lungs to be symmetrically aerated with stable reticulonod ular infiltrate in both lung bases, right greater than left. No associated effusion. Heart size is pr obable compensated. Surgical clips in the right upper abdominal quadrant are characteristic of prior cholecystectomy. CONCLUSION: 1. Reticulonodular pattern in both lung bases, right greater than left is unchanged from prior. No co nfluent infiltrate 2. Compensated cardiomegaly.. Anjum Todd MD on April 10, 2017 at 15:56 Board Certified Radiologist. This report was verified electronically.
[2017-04-10 16:02] LABS: TOTAL BILIRUBIN ADULT 2.1 MG/DL (0.2-1.0)
[2017-04-10 16:03] LABS: ALKALINE PHOSPHATASE 312 U/L (45-117)
[2017-04-10] MEDS ORDERED: SODIUM CHLORIDE 0.9% FLUSH 10 ML FLUSH IV FLUSH PRN ×2 (16:45→18:30)
[2017-04-10 17:09] LABS: GLUCOSE,URINE NEG (NEG); KETONE, URINE TRACE mg/dL (NEG); NITRITE,URINE NEG (NEG); PH, URINE 5.5 (5.0-8.5)
[2017-04-10 17:12] LABS: BLOOD, URINE TRACE (NEG)
[2017-04-10 17:15] LABS: METHOD OF COLLECTION CLEAN CATCH; URINE COLOR YELLOW (YELLW/STRAW)
[2017-04-10 17:16] LABS: BACTERIA, URINE MANY /hpf; COMMENT (UR) CULTURE INDICATED; CULTURE IF INDICATED CULTURE INDICATED; SQUAMOUS EPITHELIAL CELL URINE > 8 /hpf (0-5)
--- NOTE | 2017-04-10 17:19 | RADRPT ---
EXAM DATE/TIME: 04/10/2017 17:03 [facility] COMPARISON: CT ABDOMEN & PELVIS W CONTRAST, January 30, 2017, 12:08. INDICATIONS : Vomiting. ORAL CONTRAST: No oral contrast ingested. RADIATION DOSE: 8.89 CTDIvol (mGy) MEDICAL HISTORY : Hypertension. Chronic obstructive pulmonary disease. Gastroesophageal reflux disease.Diabetes. SURGICAL HISTORY : Cholecystectomy. Tubal ligation.Hysterectomy. ENCOUNTER: Initial ACUITY: 1 week PAIN SCALE: 0/10 LOCATION: abdomen TECHNIQUE: Volumetric scanning of the abdomen and pelvis was performed. Using automated exposure control and ad justment of the mA and/or kV according to patient size, radiation dose was kept as low as reasonably achievable to obtain optimal diagnostic quality images. DICOM format image data is available electro nically for review and comparison. FINDINGS: LOWER LUNGS: Mild atelectasis or infiltrate in the lung bases. LIVER: Homogeneous density without lesion. There is no dilation of the biliary tree. Gallbladder surgically absent. SPLEEN: Normal size without lesion. PANCREAS: Within normal limits. KIDNEYS: Tiny nonobstructing stones in the lower pole collecting system of the left kidney. No evidence of hyd ronephrosis ADRENAL GLANDS: Within normal limits. VASCULAR: There is no aortic aneurysm. BOWEL/MESENTERY: The stomach, small bowel, and colon demonstrate no acute abnormality. There is no free intraperitone al air or fluid. ABDOMINAL WALL: Within normal limits. RETROPERITONEUM: There is no lymphadenopathy. BLADDER: No wall thickening or mass. REPRODUCTIVE: Within normal limits. Minimal dependent pelvic fluid. INGUINAL: There is no lymphadenopathy or hernia. MUSCULOSKELETAL: Within normal limits for patient age. CONCLUSION: No acute noncontrast CT findings in the abdomen or pelvis. Gustavo Bueno MD on April 10, 2017 at 17:14 Board Certified Radiologist. This report was verified electronically.
[2017-04-10] MEDS ORDERED: FUROSEMIDE 40 MG/4 ML VIAL IV PUSH ONE (17:30)
--- NOTE | 2017-04-10 17:54 | PD ---
Physical Exam Date Seen by Provider: Apr 10, 2017 Data Data Last Documented VS Vital Signs Date Time Temp Pulse Resp B/P (MAP) Pulse Ox O2 Delivery O2 Flow Rate FiO2 04/10/17 17:24 85 113/88 (96) 99 Room Air 04/10/17 16:00 16 04/10/17 14:10 97.1 Orders Orders Complete Blood Count With Diff (04/10/17 14:42) Comprehensive Metabolic Panel (04/10/17 14:42) B-Type Natriuretic Peptide (04/10/17 14:42) Lipase (04/10/17 14:42) Urinalysis - C+S If Indicated (04/10/17 14:42) Magnesium (Mg) (04/10/17 14:42) Chest, Single Ap (04/10/17 14:42) Sodium Chlor 0.9% 1000 Ml Inj (Ns 1000 M (04/10/17 14:45) Ondansetron Inj (Zofran Inj) (04/10/17 14:45) Pantoprazole Inj (Protonix Inj) (04/10/17 14:45) Ct Abd/Pel W/O Iv Contrast (04/10/17 16:39) Iv Access Insert/Monitor (04/10/17 16:39) Ecg Monitoring (04/10/17 16:39) Oximetry (04/10/17 16:39) Sodium Chloride 0.9% Flush (Ns Flush) (04/10/17 16:45) Urine Culture (04/10/17 17:05) Furosemide Inj (Lasix Inj) (04/10/17 17:30) Admit To Inpatient (04/10/17 ) Vital Signs (Adult) MINISTERIO.Q4H (04/10/17 18:28) Hand Shaker / Telemetry MINISTERIO.Q8H (04/10/17 18:28) Intake + Output MINISTERIO.QSHIFT (04/10/17 18:28) Diet Diabetic (04/10/17 Dinner) Sodium Chloride 0.9% Flush (Ns Flush) (04/10/17 21:00) Sodium Chloride 0.9% Flush (Ns Flush) (04/10/17 18:30) Furosemide Inj (Lasix Inj) (04/11/17 22:00) Basic Metabolic Panel (Bmp) (04/11/17 06:00) Labs Laboratory Tests Test 04/10/17 15:35 04/10/17 17:05 White Blood Count 6.7 TH/MM3 Red Blood Count 3.54 MIL/MM3 Hemoglobin 10.6 GM/DL Hematocrit 34.2 % Mean Corpuscular Volume 96.7 FL Mean Corpuscular Hemoglobin 30.1 PG Mean Corpuscular Hemoglobin Concent 31.1 % Red Cell Distribution Width 14.2 % Platelet Count 291 TH/MM3 Mean Platelet Volume 9.4 FL Neutrophils (%) (Auto) 64.2 % Lymphocytes (%) (Auto) 27.0 % Monocytes (%) (Auto) 7.6 % Eosinophils (%) (Auto) 0.2 % Basophils (%) (Auto) 1.0 % Neutrophils # (Auto) 4.2 TH/MM3 Lymphocytes # (Auto) 1.8 TH/MM3 Monocytes # (Auto) 0.5 TH/MM3 Eosinophils # (Auto) 0.0 TH/MM3 Basophils # (Auto) 0.1 TH/MM3 CBC Comment DIFF FINAL Differential Comment Blood Urea Nitrogen 56 MG/DL Creatinine 2.80 MG/DL Random Glucose 135 MG/DL Total Protein 7.4 GM/DL Albumin 2.9 GM/DL Calcium Level 8.6 MG/DL Magnesium Level 2.4 MG/DL Alkaline Phosphatase 312 U/L Aspartate Amino Transf (AST/SGOT) 398 U/L Alanine Aminotransferase (ALT/SGPT) 379 U/L Total Bilirubin 2.1 MG/DL Sodium Level 140 MEQ/L Potassium Level 5.8 MEQ/L Chloride Level 108 MEQ/L Carbon Dioxide Level 19.5 MEQ/L Anion Gap 13 MEQ/L Estimat Glomerular Filtration Rate 20 ML/MIN B-Type Natriuretic Peptide GREATER THAN 5000 PG/ML Lipase 164 U/L Urine Collection Type CLEAN CATCH Urine Color YELLOW Urine Turbidity SLIGHT Urine pH 5.5 Urine Specific [place] 1.021 Urine Protein 300 OR GREATER mg/dL Urine Glucose (UA) NEG mg/dL Urine Ketones TRACE mg/dL Urine Occult Blood TRACE Urine Nitrite NEG Urine Bilirubin MOD Urine Leukocyte Esterase TRACE Urine RBC 4-9 /hpf Urine WBC 9-14 /hpf Urine Squamous Epithelial Cells > 8 /hpf Urine Bacteria MANY /hpf Microscopic Urinalysis Comment CULTURE INDICATED Urine Collection Time 17:05 [facility] Medical Record Reviewed: Yes Supervised Visit with DINORA: No Interpretation(s) Vital Signs Date Time Temp Pulse Resp B/P (MAP) Pulse Ox O2 Delivery O2 Flow Rate FiO2 04/10/17 17:24 85 113/88 (96) 99 Room Air 04/10/17 16:00 82 16 114/88 (97) 99 Room Air 04/10/17 14:55 75 16 129/100 (110) 98 Room Air 04/10/17 14:18 Room Air 04/10/17 14:10 97.1 94 20 126/73 (90) 100 Laboratory Tests Test 04/10/17 15:35 04/10/17 17:05 White Blood Count 6.7 TH/MM3 (4.0-11.0) Red Blood Count 3.54 MIL/MM3 (4.00-5.30) Hemoglobin 10.6 GM/DL (11.6-15.3) Hematocrit 34.2 % (35.0-46.0) Mean Corpuscular Volume 96.7 FL (80.0-100.0) Mean Corpuscular Hemoglobin 30.1 PG (27.0-34.0) Mean Corpuscular Hemoglobin Concent 31.1 % (32.0-36.0) Red Cell Distribution Width 14.2 % (11.6-17.2) Platelet Count 291 TH/MM3 (150-450) Mean Platelet Volume 9.4 FL (7.0-11.0) Neutrophils (%) (Auto) 64.2 % (16.0-70.0) Lymphocytes (%) (Auto) 27.0 % (9.0-44.0) Monocytes (%) (Auto) 7.6 % (0.0-8.0) Eosinophils (%) (Auto) 0.2 % (0.0-4.0) Basophils (%) (Auto) 1.0 % (0.0-2.0) Neutrophils # (Auto) 4.2 TH/MM3 (1.8-7.7) Lymphocytes # (Auto) 1.8 TH/MM3 (1.0-4.8) Monocytes # (Auto) 0.5 TH/MM3 (0-0.9) Eosinophils # (Auto) 0.0 TH/MM3 (0-0.4) Basophils # (Auto) 0.1 TH/MM3 (0-0.2) CBC Comment DIFF FINAL Differential Comment Blood Urea Nitrogen 56 MG/DL (7-18) Creatinine 2.80 MG/DL (0.50-1.00) Random Glucose 135 MG/DL (74-106) Total Protein 7.4 GM/DL (6.4-8.2) Albumin 2.9 GM/DL (3.4-5.0) Calcium Level 8.6 MG/DL (8.5-10.1) Magnesium Level 2.4 MG/DL (1.5-2.5) Alkaline Phosphatase 312 U/L (45-117) Aspartate Amino Transf (AST/SGOT) 398 U/L (15-37) Alanine Aminotransferase (ALT/SGPT) 379 U/L (10-53) Total Bilirubin 2.1 MG/DL (0.2-1.0) Sodium Level 140 MEQ/L (136-145) Potassium Level 5.8 MEQ/L (3.5-5.1) Chloride Level 108 MEQ/L (98-107) Carbon Dioxide Level 19.5 MEQ/L (21.0-32.0) Anion Gap 13 MEQ/L (5-15) Estimat Glomerular Filtration Rate 20 ML/MIN (>89) B-Type Natriuretic Peptide GREATER THAN 5000 PG/ML Lipase 164 U/L (73-393) Urine Collection Type CLEAN CATCH Urine Color YELLOW (YELLW/STRAW) Urine Turbidity SLIGHT (CLEAR) Urine pH 5.5 (5.0-8.5) Urine Specific [place] 1.021 (1.002-1.035) Urine Protein 300 OR GREATER mg/dL Urine Glucose (UA) NEG mg/dL (NEG) Urine Ketones TRACE mg/dL (NEG) Urine Occult Blood TRACE (NEG) Urine Nitrite NEG (NEG) Urine Bilirubin MOD (NEG) Urine Leukocyte Esterase TRACE (NEG) Urine RBC 4-9 /hpf (0-3) Urine WBC 9-14 /hpf (0-5) Urine Squamous Epithelial Cells > 8 /hpf (0-5) Urine Bacteria MANY /hpf (NONE) Microscopic Urinalysis Comment CULTURE INDICATED Urine Collection Time 17:05 Last Impressions Abdomen/Pelvis CT 04/10/17 1639 Signed Impressions: Service Date/Time: Monday, April 10, 2017 17:03 - CONCLUSION: No acute noncontrast CT findings in the abdomen or pelvis. Gustavo Bueno MD Chest X-Ray 04/10/17 1442 Signed Impressions: Service Date/Time: Monday, April 10, 2017 15:52 - CONCLUSION: 1. Reticulonodular pattern in both lung bases, right greater than left is unchanged from prior. No confluent infiltrate 2. Compensated cardiomegaly.. Anjum Todd MD Differential Diagnosis CHF exacerbation, gastritis, gastroenteritis, electrolyte abnormality, small bowel obstruction. Narrative Course Patient was signed out to me by Dr. Smith at change of shift. Patient pending CT of the abdomen pelvis as well as ultimate disposition. Patient is a 66-year-old female who presents to emergency room with multiple complaints. Patient reports that for the past week, she's been having shortness of breath with increased swelling to her ankles. She does have history of cardiomyopathy with EF about 28%, she does follow-up with Dr. Smart only office. She does take Lasix as an outpatient and has been compliant with her medications. Patient reports that over the past 10 days, she has been feeling nauseous and has been vomiting, reports that she has not been able to keep any fluids or food down. Patient did try taking Zofran with no relief of symptoms. During the course of the patients emergency department visit, the patients history, examination, and differential diagnosis were reviewed with the patient. The patient was placed on a surveillance monitor with oximetry and frequent blood pressure monitoring. The patient had 20 guage IV access obtained and blood work sent for analysis. The patient was initially provided 60 mg of IV Lasix. The patients laboratory studies were reviewed and remarkable for CBC & BMP Diagram 04/10/17 15:35 Total Protein 7.4, Albumin 2.9 L, Calcium Level 8.6, Magnesium Level 2.4, Alkaline Phosphatase 312 H, Aspartate Amino Transf (AST/SGOT) 398 H, Alanine Aminotransferase (ALT/SGPT) 379 H, Total Bilirubin 2.1 H BNP is greater than 5000 Radiology studies were reviewed and remarkable for: Last Impressions Abdomen/Pelvis CT 04/10/17 1639 Signed Impressions: Service Date/Time: Monday, April 10, 2017 17:03 - CONCLUSION: No acute noncontrast CT findings in the abdomen or pelvis. Gustavo Bueno MD Chest X-Ray 04/10/17 1442 Signed Impressions: Service Date/Time: Monday, April 10, 2017 15:52 - CONCLUSION: 1. Reticulonodular pattern in both lung bases, right greater than left is unchanged from prior. No confluent infiltrate 2. Compensated cardiomegaly.. Anjum Todd MD BMP is greater than 5000, x-ray of the chest shows CHF exacerbation. Patient was given 60 mg of IV Lasix. Plan to admit to the hospital for CHF exacerbation as well as for renal failure. Patient's BUN and creatinine is elevated today at 56/2.80. Baseline baseline BUN/CR: 39/1.40. patient will require admission to the hospital at this time case reviewed with dr. mcleod who accepts pt to service Diagnosis Primary Impression: Renal failure (ARF), acute on chronic Qualified Codes: N17.9 - Acute kidney failure, unspecified; N18.9 - Chronic kidney disease, unspecified Additional Impression: CHF exacerbation Qualified Codes: I50.9 - Heart failure, unspecified Admitting Information Admitting Physician Requests: Arabella Parra DO Apr 10, 2017 17:54
[2017-04-10] MEDS ORDERED: DEXTROSE 50% IN WATER 50 ML VIAL(D50) IV PUSH PRN (18:45)
[2017-04-10] MEDS ORDERED: GLUCAGON 1 MG/ML VIAL OTHER PRN (18:45)
[2017-04-10] MEDS: INSULIN ASPART SUPPLEMENTAL SCALE SQ SCH (22:00)
[2017-04-10] MEDS: BUDESONIDE-FORMOTEROL 80/4.5 MCG INHALER INH SCH (22:33)
[2017-04-10] MEDS: MONTELUKAST SODIUM 10 MG TAB PO SCH (22:33)
[2017-04-10] MEDS: ATORVASTATIN 10 MG TAB PO SCH (22:33)
[2017-04-10] MEDS: SODIUM CHLORIDE 0.9% FLUSH 10 ML FLUSH IV FLUSH SCH (22:34)
[2017-04-10] MEDS: BENZONATATE 100 MG CAP PO PRN (23:42)
[2017-04-11] VITALS (8 sets, daily range): BP systolic 98–119; BP diastolic 71–87; PULSE 79–91; RESP 20; TEMP 96–97.4; O2SAT 97–100
[2017-04-11] MEDS: RESP: ALBUTEROL CONC 2.5 MG/0.5 ML NEB NEB PRN ×3 (04:24→20:39)
[2017-04-11 07:27] LABS: BICARBONATE 21.8 MEQ/L (21.0-32.0); POTASSIUM 4.1 MEQ/L (3.5-5.1)
[2017-04-11] MEDS: INSULIN ASPART SUPPLEMENTAL SCALE SQ SCH ×4 (08:00→21:32)
[2017-04-11] MEDS ORDERED: PNEUMOCOCCAL POLYVALENT INJ 25 MCG/0.5 ML SYR IM ONE (09:00)
[2017-04-11] MEDS: METOPROLOL TARTRATE 50 MG TAB PO SCH (09:41)
[2017-04-11] MEDS: ASPIRIN 81 MG CHEW TAB CHEW SCH (09:41)
[2017-04-11] MEDS: BUDESONIDE-FORMOTEROL 80/4.5 MCG INHALER INH SCH ×2 (09:41→21:11)
[2017-04-11] MEDS: SODIUM CHLORIDE 0.9% FLUSH 10 ML FLUSH IV FLUSH SCH ×2 (13:36→21:13)
[2017-04-11] MEDS ORDERED: LEVOFLOXACIN 250 MG PREMIX INJ 50 ML IV SCH (14:00)
--- NOTE | 2017-04-11 14:13 | HHI.HP ---
[facility] Service [facility] Primary Care Physician Rachana Ramires M.D. Admission Diagnosis CHF exacerbation, renal failure Diagnoses: Chief Complaint: Shortness of breath and edema Travel History International Travel<30 Days: No Contact w/Intl Traveler <30 Da: No Traveled to Known Affected Are: No History of Present Illness This patient is a 66-year-old female with known severe cardiomyopathy. She comes in with 2-3 days of increased work of breathing, distal exertion, lower extremity edema. Her EF is less than 20% and a previous hospitalization patient has been recommended for defibrillator evaluation. She was given a LifeVest. She has not been wearing a LifeVest for the last month due to cost issues. She reports that she saw her solution advisor to change her medications around. She also has a history of elevated TSH with a normal T4/T3. Patient had been in follow-up with her primary care physician for this however she reports her primary doctor "did nothing " For her thyroid. She has not had any fevers or chills. She has home and mostly sedentary. She reports no chest pain. She follows up with her solution advisor, Dr. Smart. She has been admitted to the hospital for further evaluation of congestive heart failure. She has elevated BNP, signs and symptoms of congestion and evidence of passive congestion of the liver. She is felt better with IV Lasix. She is also to have acute kidney injury. She notes no hematuria or dysuria Past Family Social History Past Medical History diabetes Hyperthyroidism, subclinical Congestive heart failure, severe Asthma Past Surgical History cholecystectomy Hysterectomy Reported Medications Reviewed in the EMR, and nothing new Allergies: Coded Allergies: gadodiamide (Verified Allergy, Severe, Rash, 04/10/17) iodixanol (Verified Allergy, Severe, Rash, 04/10/17) ceftriaxone (Verified Allergy, Mild, RASH, 04/10/17) penicillin G (Verified Allergy, Mild, Nausea/Vomiting, 04/10/17) Active Ordered Medications Reviewed in the EMR Family History Diabetes and hypertension Social History Lives with her family, no tobacco or alcohol dependency Physical Exam Vital Signs Vital Signs Date Time Temp Pulse Resp B/P (MAP) Pulse Ox O2 Delivery O2 Flow Rate FiO2 04/11/17 12:00 97.4 81 20 98/71 (80) 100 04/11/17 08:46 96.0 88 20 119/80 (93) 98 04/11/17 04:00 96.4 85 20 105/71 (82) 97 04/11/17 00:00 96.0 91 20 114/87 (96) 100 04/10/17 20:25 86 04/10/17 20:03 97.8 88 20 117/88 (98) 99 04/10/17 18:15 86 16 118/88 (98) 100 Room Air 04/10/17 17:24 85 113/88 (96) 99 Room Air 04/10/17 16:00 82 16 114/88 (97) 99 Room Air 04/10/17 14:55 75 16 129/100 (110) 98 Room Air 04/10/17 14:18 98 Room Air 04/10/17 14:18 Room Air 04/10/17 14:10 97.1 94 20 126/73 (90) 100 Physical Exam GENERAL: This is a well-nourished, well-developed patient, flat affect SKIN: No rashes, ecchymoses or lesions. Cool and dry. HEAD: Atraumatic. Normocephalic. No temporal or scalp tenderness. EYES: Pupils equal round and reactive. Extraocular motions intact. No scleral icterus. No injection or drainage. ENT: Nose without bleeding, purulent drainage or septal hematoma. Throat without erythema, tonsillar hypertrophy or exudate. Uvula midline. Airway patent. NECK: Trachea midline. No JVD or lymphadenopathy. Supple, nontender, no meningeal signs. CARDIOVASCULAR: Regular rate, systolic murmur RESPIRATORY: Clear to auscultation. Breath sounds equal bilaterally. No wheezes , rales, or rhonchi. GASTROINTESTINAL: Abdomen soft, non-tender, nondistended. No hepato-splenomegaly , or palpable masses. No guarding. MUSCULOSKELETAL: Extremities without clubbing, cyanosis, or edema. No joint tenderness, effusion, but there is +2 edema. No calf tenderness. Negative Homans sign bilaterally. NEUROLOGICAL: Awake and alert. Cranial nerves II through XII intact. Motor and sensory grossly within normal limits. Five out of 5 muscle strength in all muscle groups. Normal speech. Laboratory Laboratory Tests Test 04/10/17 15:35 04/10/17 17:05 04/11/17 06:07 White Blood Count 6.7 Red Blood Count 3.54 Hemoglobin 10.6 Hematocrit 34.2 Mean Corpuscular Volume 96.7 Mean Corpuscular Hemoglobin 30.1 Mean Corpuscular Hemoglobin Concent 31.1 Red Cell Distribution Width 14.2 Platelet Count 291 Mean Platelet Volume 9.4 Neutrophils (%) (Auto) 64.2 Lymphocytes (%) (Auto) 27.0 Monocytes (%) (Auto) 7.6 Eosinophils (%) (Auto) 0.2 Basophils (%) (Auto) 1.0 Neutrophils # (Auto) 4.2 Lymphocytes # (Auto) 1.8 Monocytes # (Auto) 0.5 Eosinophils # (Auto) 0.0 Basophils # (Auto) 0.1 CBC Comment DIFF FINAL Differential Comment Blood Urea Nitrogen 56 61 Creatinine 2.80 3.00 Random Glucose 135 87 Total Protein 7.4 Albumin 2.9 Calcium Level 8.6 8.1 Magnesium Level 2.4 Alkaline Phosphatase 312 Aspartate Amino Transf (AST/SGOT) 398 Alanine Aminotransferase (ALT/SGPT) 379 Total Bilirubin 2.1 Sodium Level 140 142 Potassium Level 5.8 4.1 Chloride Level 108 108 Carbon Dioxide Level 19.5 21.8 Anion Gap 13 12 Estimat Glomerular Filtration Rate 20 19 B-Type Natriuretic Peptide GREATER THAN 5000 Lipase 164 Urine Collection Type CLEAN CATCH Urine Color YELLOW Urine Turbidity SLIGHT Urine pH 5.5 Urine Specific [place] 1.021 Urine Protein 300 OR GREATER Urine Glucose (UA) NEG Urine Ketones TRACE Urine Occult Blood TRACE Urine Nitrite NEG Urine Bilirubin MOD Urine Leukocyte Esterase TRACE Urine RBC 4-9 Urine WBC 9-14 Urine Squamous Epithelial Cells > 8 Urine Bacteria MANY Microscopic Urinalysis Comment CULTURE INDICATED Urine Collection Time 17:05 Date/Time Source Procedure Growth Status 04/10/17 17:05 Urine Clean Catch Urine Culture Pending Received Result Diagram: 04/10/17 1535 04/11/17 0607 Imaging Last Impressions Abdomen/Pelvis CT 04/10/17 1639 Signed Impressions: Service Date/Time: Monday, April 10, 2017 17:03 - CONCLUSION: No acute noncontrast CT findings in the abdomen or pelvis. Gustavo Bueno MD Chest X-Ray 04/10/17 1442 Signed Impressions: Service Date/Time: Monday, April 10, 2017 15:52 - CONCLUSION: 1. Reticulonodular pattern in both lung bases, right greater than left is unchanged from prior. No confluent infiltrate 2. Compensated cardiomegaly.. MD Tray Marin VTE Risk Assessment Tray VTE Risk Assessment: Mod/High Risk (score >= 2) Caprini Risk Assessment Model Point Value = 1 Point Value = 2 Point Value = 3 Point Value = 5 Age 41-60 Minor surgery BMI > 25 kg/m2 Swollen legs Varicose veins or History of unexplained or recurrent spontaneous Oral contraceptives or hormone replacement Sepsis (< 1 month) Serious lung disease, including pneumonia (< 1 month) Abnormal pulmonary function Acute myocardial infarction Congestive heart failure (< 1 month) History of inflammatory bowel disease Medical patient at bed rest Age 61-74 Arthroscopic surgery Major open surgery (> 45 min) Laparoscopic surgery (> 45 min) Malignancy Confined to bed (> 72 hours) Immobilizing plaster cast Central venous access Age >= 75 History of VTE Family history of VTE Factor V Leiden Prothrombin [id number] Lupus anticoagulant Anticardiolipin antibodies Elevated serum homocysteine Heparin-induced thrombocytopenia Other congenital or acquired thrombophilia Stroke (< 1 month) Elective arthroplasty Hip, pelvis, or leg fracture Acute spinal cord injury (< 1 month) Prophylaxis Regimen Total Risk Factor Score Risk Level Prophylaxis Regimen 0-1 Low Early ambulation 2 Moderate Order ONE of the following: *Sequential Compression Device (SCD) *Heparin 5000 units SQ BID 3-4 Higher Order ONE of the following medications: *Heparin 5000 units SQ TID *Enoxaparin/Lovenox 40 mg SQ daily (WT < 150 kg, CrCl > 30 mL/min) *Enoxaparin/Lovenox 30 mg SQ daily (WT < 150 kg, CrCl > 10-29 mL/min) *Enoxaparin/Lovenox 30 mg SQ BID (WT < 150 kg, CrCl > 30 mL/min) AND/OR *Sequential Compression Device (SCD) 5 or more Highest Order ONE of the following medications: *Heparin 5000 units SQ TID (Preferred with Epidurals) *Enoxaparin/Lovenox 40 mg SQ daily (WT < 150 kg, CrCl > 30 mL/min) *Enoxaparin/Lovenox 30 mg SQ daily (WT < 150 kg, CrCl > 10-29 mL/min) *Enoxaparin/Lovenox 30 mg SQ BID (WT < 150 kg, CrCl > 30 mL/min) AND *Sequential Compression Device (SCD) Assessment and Plan Problem List: (1) CHF exacerbation ICD Code: I50.9 - Heart failure, unspecified Status: Acute Plan: Patient on metoprolol and Cozaar Status post Lasix for diuresis Intake/output not recorded despite orders (2) Abnormal TSH ICD Code: R94.6 - Abnormal results of thyroid function studies Plan: Patient continue beta liliana Subclinical hyperthyroidism (suppressed TSH with normal T4/T3 and without clinical symptoms of hypo-her thyroid is) Recheck TSH, T4 (3) Acute renal failure superimposed on stage 2 chronic kidney disease ICD Code: N17.9 - Acute kidney failure, unspecified; N18.2 - Chronic kidney disease, stage 2 (mild) Plan: Renal ultrasound pending, proteinuria ? lots of squamous cells Follow-up UA cultures, Levaquin empirically nephrology consult work up in progress Discussed Condition With Patient. Patient comprehension is low. Physician Certification 2 Midnight Certification Type: Admission for Inpatient Services Order for Inpatient Services The services are ordered in accordance with Medicare regulations or non- Medicare payer requirements, as applicable. In the case of services not specified as inpatient-only, they are appropriately provided as inpatient services in accordance with the 2-midnight benchmark. Estimated LOS (days): 3 3 days is the estimated time the patient will need to remain in the hospital, assuming treatment plan goals are met and no additional complications. Post-Hospital Plan: Home Problem Qualifiers (1) CHF exacerbation: Qualified Codes: I50.9 - Heart failure, unspecified Margarita Cueva MD Apr 11, 2017 14:13
[2017-04-11] MEDS ORDERED: diphenhydrAMINE HCL 50 MG/ML VIAL IV PUSH ONE (16:00)
[2017-04-11] MEDS: BENZONATATE 100 MG CAP PO PRN ×2 (16:06→22:21)
--- NOTE | 2017-04-11 16:35 | RADRPT ---
EXAM DATE/TIME: 04/11/2017 15:09 [facility] COMPARISON: CT ABDOMEN & PELVIS W/O CONTRAST, April 10, 2017, 17:03 INDICATIONS : Increased BUN/Creatinine. MEDICAL HISTORY : Hypercholesterolemia. Hypertension. Congestive heart failure. Anticoagulant therapy. Dyspnea. Diab etes. SURGICAL HISTORY : Cholecystectomy. section. Hysterectomy. Tubal ligation. Sinus surgery. ENCOUNTER: Initial ACUITY: 1 day PAIN SCORE: 0/10 LOCATION: Bilateral flank MEASUREMENTS: RIGHT KIDNEY: 11.4 x 5.5 x 5.0 cm LEFT KIDNEY: 10.6 x 4.6 x 5.3 cm FINDINGS: RIGHT KIDNEY: Renal cortex is normal in thickness and echotexture. No hydronephrosis, stone, or mass. LEFT KIDNEY: Renal cortex is normal in thickness and echotexture. No hydronephrosis, stone, or mass. BLADDER: Minimally distended CONCLUSION: No evidence of hydronephrosis Gustavo Bueno MD on April 11, 2017 at 16:13 Board Certified Radiologist. This report was verified electronically.
[2017-04-11] MEDS: FAMOTIDINE 20 MG TAB PO SCH (17:51)
--- NOTE | 2017-04-11 17:58 | PD.CONS ---
HPI Service nephrology Consult Requested By Dr. Cueva Reason for Consult Acute renal failure Primary Care Physician Rachana Ramires M.D. History of Present Illness Patient is a 66-year-old female with history of cardiomyopathy EF of 20%, she is having progressive renal failure creatinine is now 3 few months ago in January 2017 her creatinine was 0.8 -0.9, she has been diagnosed with CHF and placed on LifeVest and told her to get a defibrillator implant, patient is having increasing shortness of breath and her urine output is low she was on diuretic however this was discontinued since renal failure is getting worse. She denies any history of kidney disease in the past. She has a cough and felt congested as well. Review of Systems Constitutional: COMPLAINS OF: Fatigue Respiratory: COMPLAINS OF: Cough, Shortness of breath Cardiovascular: COMPLAINS OF: Orthopnea Musculoskeletal: COMPLAINS OF: Joint pain Neurologic: COMPLAINS OF: Abnormal gait Past Family Social History Allergies: Coded Allergies: gadodiamide (Verified Allergy, Severe, Rash, 04/10/17) iodixanol (Verified Allergy, Severe, Rash, 04/10/17) ceftriaxone (Verified Allergy, Mild, RASH, 04/10/17) penicillin G (Verified Allergy, Mild, Nausea/Vomiting, 04/10/17) Past Medical History Diabetes Hyperthyroidism, subclinical Congestive heart failure, severe EF of 20% Asthma Past Surgical History cholecystectomy Hysterectomy Reported Medications Reported Meds & Active Scripts Active Guaifenesin AC Liq (Guaifenesin-Codeine Liq) 100-10 Mg/5 Ml Syrp 10 Ml PO Q6H PRN Reported Metoprolol Tartrate 50 Mg Tab 50 Mg PO DAILY Losartan (Losartan Potassium) 50 Mg Tab 50 Mg PO DAILY Aspirin 81 Mg Chew 81 Mg CHEW DAILY Furosemide 20 Mg Tab 10 Mg PO EVERY OTHER DAY Atorvastatin (Atorvastatin Calcium) 10 Mg Tab 10 Mg PO HS Albuterol Neb (Albuterol Sulfate) 2.5 Mg/0.5 Ml Neb 2.5 Mg NEB Q4HR NEB PRN Note: The Albuterol Sulfate Inhalation Solution is concentrated and must be diluted. Read complete instructions carefully before using. Symbicort Inh (Budesonide/Formoterol Fumarate) 80-4.5 Mcg/Act Aero 2 Puff INH Q12HR Flonase Nasal [place] (Fluticasone Nasal [place]) 50 Mcg/Act [place] 50 Mcg EACH NARE BID PRN Metformin (Metformin HCl) 500 Mg Tab 500 Mg PO BIDPC With meals Montelukast (Montelukast Sodium) 10 Mg Tab 10 Mg PO HS Family History Noncontributory Social History She denies smoking or alcohol use Physical Exam Vital Signs Vital Signs Date Time Temp Pulse Resp B/P (MAP) Pulse Ox O2 Delivery O2 Flow Rate FiO2 04/11/17 16:00 96.9 79 20 101/81 (88) 100 04/11/17 15:00 81 04/11/17 12:00 97.4 81 20 98/71 (80) 100 04/11/17 08:46 96.0 88 20 119/80 (93) 98 04/11/17 08:00 89 04/11/17 04:00 96.4 85 20 105/71 (82) 97 04/11/17 00:00 96.0 91 20 114/87 (96) 100 04/10/17 20:25 86 04/10/17 20:03 97.8 88 20 117/88 (98) 99 04/10/17 18:15 86 16 118/88 (98) 100 Room Air Physical Exam GENERAL: Well-nourished, well-developed patient. SKIN: Warm and dry. HEAD: Normocephalic. EYES: No scleral icterus. No injection or drainage. NECK: Supple, trachea midline. No JVD or lymphadenopathy. CARDIOVASCULAR: Irregular no murmurs, gallops, or rubs. RESPIRATORY: Breath sounds diminished at bases GASTROINTESTINAL: Abdomen soft, non-tender, nondistended. EXTREMITIES: No cyanosis, or edema. NEUROLOGICAL: Awake, alert, and oriented x 3. Non-focal. Laboratory Laboratory Tests Test 04/11/17 06:07 Blood Urea Nitrogen 61 Creatinine 3.00 Random Glucose 87 Calcium Level 8.1 Sodium Level 142 Potassium Level 4.1 Chloride Level 108 Carbon Dioxide Level 21.8 Anion Gap 12 Estimat Glomerular Filtration Rate 19 Date/Time Source Procedure Growth Status 04/10/17 17:05 Urine Clean Catch Urine Culture - Final 50-100,000 CFU/ML MIXED LILA... Complete Result Diagram: 04/10/17 1535 04/11/17 0607 Imaging Last Impressions Renal Ultrasound 04/11/17 0000 Signed Impressions: Service Date/Time: Tuesday, April 11, 2017 15:09 - CONCLUSION: No evidence of hydronephrosis Gustavo Bueno MD Abdomen/Pelvis CT 04/10/17 1639 Signed Impressions: Service Date/Time: Monday, April 10, 2017 17:03 - CONCLUSION: No acute noncontrast CT findings in the abdomen or pelvis. Gustavo Bueno MD Chest X-Ray 04/10/17 1442 Signed Impressions: Service Date/Time: Monday, April 10, 2017 15:52 - CONCLUSION: 1. Reticulonodular pattern in both lung bases, right greater than left is unchanged from prior. No confluent infiltrate 2. Compensated cardiomegaly.. Anjum Todd MD Assessment and Plan Problem List: (1) Renal failure (ARF), acute on chronic ICD Codes: N17.9 - Acute kidney failure, unspecified; N18.9 - Chronic kidney disease, unspecified Status: Acute Plan: Patient received diuretics and her creatinine went up appears to have some prerenal component although she has history of congestive heart failure there is no edema Give albumin Check urine sodium and creatinine I agree with holding diuretic Follow BMP (2) Bronchitis ICD Codes: J40 - Bronchitis Status: Acute Plan: She she was on Levaquin (3) Asthma exacerbation ICD Codes: J45.901 - Unspecified asthma with (acute) exacerbation Status: Acute Plan: On Symbicort (4) Cardiomyopathy ICD Codes: I42.9 - Cardiomyopathy, unspecified Plan: EF of 20% (5) DMII (diabetes mellitus, type 2) ICD Codes: E11.9 - Type 2 diabetes mellitus Status: Chronic Plan: monitor blood glucose Problem Qualifiers (1) Renal failure (ARF), acute on chronic: Qualified Codes: N17.9 - Acute kidney failure, unspecified; N18.9 - Chronic kidney disease, unspecified Karen Azar MD Apr 11, 2017 17:58
[2017-04-11] MEDS: ALBUMIN 25% INJ 100 ML IV SCH (18:27)
[2017-04-11 20:08] LABS: FREE T4 1.5 NG/DL (0.76-1.46)
[2017-04-11] MEDS: MONTELUKAST SODIUM 10 MG TAB PO SCH (21:11)
[2017-04-11] MEDS: ATORVASTATIN 10 MG TAB PO SCH (21:12)
[2017-04-11] MEDS: HEPARIN SODIUM - SQ 10,000 UNITS/ML VIAL SQ SCH (21:13)
[2017-04-11] MEDS ORDERED: FUROSEMIDE 40 MG/4 ML VIAL IVP SCH (22:00)
[2017-04-12] VITALS: BP_SYST 109; BP_SYST 118; BP_DIAS 77; BP_DIAS 78; PULSE 85; PULSE 91; RESP 20; RESP 21; TEMP 96.6; TEMP 97.3; O2SAT 97; O2SAT 99
--- NOTE | 2017-04-12 00:14 | RADRPT ---
EXAM DATE/TIME: 04/12/2017 00:01 [facility] COMPARISON: CT THORAX W CONTRAST, January 30, 2017, 12:08. CHEST PA & LAT, March 28, 2017, 0:33. CHEST SIN GLE AP, April 10, 2017, 15:52. INDICATIONS : Chest pain. MEDICAL HISTORY : Hypercholesterolemia. Hypertension. Congestive heart failure. SURGICAL HISTORY : Cholecystectomy. ENCOUNTER: Initial ACUITY: 1 day PAIN SCORE: 6/10 LOCATION: Bilateral chest FINDINGS: The cardiac silhouette is enlarged. There is diffuse increase interstitial markings in a reticulonodu lar pattern. This is unchanged from the prior exam. A focal alveolar consolidation is not seen. No ef fusion is seen. CONCLUSION: Diffuse interstitial disease. Gustavo Zuniga MD on April 12, 2017 at 0:10 Board Certified Radiologist. This report was verified electronically.
[2017-04-12] MEDS: guaiFENesin/DEXTROMETHORPHAN 200 MG/20 MG/10 ML CUP PO PRN ×3 (00:21→20:19)
[2017-04-12] MEDS: RESP: ALBUTEROL CONC 2.5 MG/0.5 ML NEB NEB PRN ×2 (03:58→20:57)
[2017-04-12 04:00] VITALS: BP 120/77; PULSE 90; RESP 20; TEMP 96.6; O2SAT 100
[2017-04-12 06:09] LABS: BASOPHIL % 0.2 % (0.0-2.0); EOSINOPHIL % 0.2 % (0.0-4.0); HEMATOCRIT 32.7 % (35.0-46.0); HEMO FLAGS DIFF FINAL; LYMPH % 28.8 % (9.0-44.0); LYMPHOCYTE # 2.4 TH/MM3 (1.0-4.8); MEAN CELL VOLUME 93.1 FL (80.0-100.0); MEAN CORPUSCULAR HEMOGLOBIN 29.6 PG (27.0-34.0); MEAN CORPUSCULAR HGB CONC 31.8 % (32.0-36.0); MONO % 11.2 % (0.0-8.0); NEUT % 59.6 % (16.0-70.0); PLATELET COUNT 235 TH/MM3 (150-450); RED BLOOD COUNT 3.51 MIL/MM3 (4.00-5.30); RED CELL DISTRIBUTION WIDTH 13.4 % (11.6-17.2); WHITE BLOOD COUNT 8.3 TH/MM3 (4.0-11.0)
[2017-04-12 06:21] LABS: CHLORIDE 105 MEQ/L (98-107); POTASSIUM 4.5 MEQ/L (3.5-5.1); SODIUM (NA) 139 MEQ/L (136-145)
[2017-04-12 06:25] LABS: ANION GAP 15 MEQ/L (5-15); BICARBONATE 19.3 MEQ/L (21.0-32.0); BLOOD UREA NITROGEN 71 MG/DL (7-18)
[2017-04-12 06:28] LABS: ALT (GPT) 518 U/L (10-53); AST (GOT) 489 U/L (15-37); GLOMERULAR FILTRATION RATE 20 ML/MIN (>89)
[2017-04-12] MEDS: ALBUMIN 25% INJ 100 ML IV SCH ×2 (06:28→17:14)
[2017-04-12 06:30] LABS: TOTAL BILIRUBIN ADULT 2.2 MG/DL (0.2-1.0)
[2017-04-12 06:31] LABS: ALKALINE PHOSPHATASE 418 U/L (45-117)
[2017-04-12 08:00] VITALS: BP 126/85; PULSE 96; RESP 18; TEMP 97.1; O2SAT 99
[2017-04-12] MEDS: INSULIN ASPART SUPPLEMENTAL SCALE SQ SCH ×4 (08:00→21:40)
[2017-04-12] MEDS: METOPROLOL TARTRATE 50 MG TAB PO SCH (08:12)
[2017-04-12] MEDS: ASPIRIN 81 MG CHEW TAB CHEW SCH (08:12)
[2017-04-12] MEDS: SODIUM CHLORIDE 0.9% FLUSH 10 ML FLUSH IV FLUSH SCH ×2 (08:13→20:21)
[2017-04-12] MEDS: FAMOTIDINE 20 MG TAB PO SCH ×2 (08:13→20:21)
[2017-04-12] MEDS: HEPARIN SODIUM - SQ 10,000 UNITS/ML VIAL SQ SCH ×2 (08:13→20:20)
[2017-04-12] MEDS: BUDESONIDE-FORMOTEROL 80/4.5 MCG INHALER INH SCH ×2 (08:14→20:22)
[2017-04-12 12:00] VITALS: BP 110/75; PULSE 74; RESP 18; TEMP 97; O2SAT 97
--- NOTE | 2017-04-12 13:21 | HHI.PR ---
Subjective Remarks Follow up CHF and TONIA vs CKD. Patient seen and examined in room, son at bedside. Patient eating well, denies any abdominal pain, nausea or vomiting. Son does state that she has been having severe vomiting for several days prior to presentation to the hospital. Patient denies any chest pain, headache or shortness of breath. Breathing comfortably. Bilateral lower extremity edema improved. Denies any pain. Ambulating well. Afebrile. Urinating well. Objective Vitals Vital Signs Date Time Temp Pulse Resp B/P (MAP) Pulse Ox O2 Delivery O2 Flow Rate FiO2 04/12/17 12:00 97.0 74 18 110/75 (87) 97 04/12/17 08:00 97.1 96 18 126/85 (99) 99 04/12/17 04:00 96.6 90 20 120/77 (91) 100 04/12/17 00:00 96.6 91 20 118/78 (91) 97 04/11/17 20:00 96.8 82 20 104/77 (86) 98 04/11/17 16:00 96.9 79 20 101/81 (88) 100 04/11/17 15:00 81 I/O 04/11/17 04/11/17 04/11/17 04/12/17 04/12/17 04/12/17 07:00 15:00 23:00 07:00 15:00 23:00 Intake Total 840 ml 100 ml 240 ml Output Total 500 ml Balance 340 ml 100 ml 240 ml Intake Oral 840 ml 240 ml IV Total 100 ml Output Urine Total 500 ml # Voids 2 3 # Bowel Movements 0 1 1 Result Diagram: 04/12/17 0510 04/12/17 0510 Imaging Last Impressions Renal Ultrasound 04/11/17 0000 Signed Impressions: Service Date/Time: Tuesday, April 11, 2017 15:09 - CONCLUSION: No evidence of hydronephrosis Gustavo Bueno MD Chest X-Ray 04/11/17 0000 Signed Impressions: Service Date/Time: March 00:01 - CONCLUSION: Diffuse interstitial disease. Gustavo Zuniga MD Abdomen/Pelvis CT 04/10/17 1639 Signed Impressions: Service Date/Time: Monday, April 10, 2017 17:03 - CONCLUSION: No acute noncontrast CT findings in the abdomen or pelvis. Gustavo Bueno MD Objective Remarks GENERAL: This is a well-nourished, well-developed patient sitting up in bed in [facility]. SKIN: No rashes, ecchymoses or lesions. Warm and dry. HEAD: Atraumatic. Normocephalic. EYES: Pupils equal round and reactive. Extraocular motions intact. No scleral icterus. No injection or drainage. ENT: Nose without bleeding, purulent drainage or septal hematoma. Throat without erythema, tonsillar hypertrophy or exudate. Uvula midline. Airway patent. NECK: Trachea midline. No JVD or lymphadenopathy. Supple, nontender, no meningeal signs. CARDIOVASCULAR: Regular rate, systolic murmur RESPIRATORY: Clear to auscultation. Breath sounds equal bilaterally. No wheezes , rales, or rhonchi. GASTROINTESTINAL: Abdomen soft, non-tender, nondistended. No hepato-splenomegaly , or palpable masses. No guarding. MUSCULOSKELETAL: Extremities without clubbing, cyanosis, or edema. No joint tenderness, effusion, but there is +1 edema. NEUROLOGICAL: Awake and alert. Cranial nerves II through XII intact. Motor and sensory grossly within normal limits. Five out of 5 muscle strength in all muscle groups. Normal speech. A/P Problem List: (1) CHF exacerbation ICD Code: I50.9 - Heart failure, unspecified Status: Acute Plan: Patient on metoprolol and Cozaar Status post Lasix for diuresis. On hold now due to acute on chronic kidney disease. Positive fluid balance. (2) Abnormal TSH ICD Code: R94.6 - Abnormal results of thyroid function studies Plan: Patient continue beta liliana Subclinical hyperthyroidism (suppressed TSH with normal T4/T3 and without clinical symptoms of hypo-her thyroid is) Recheck TSH, T4 which are normal. (3) Acute renal failure superimposed on stage 2 chronic kidney disease ICD Code: N17.9 - Acute kidney failure, unspecified; N18.2 - Chronic kidney disease, stage 2 (mild) Plan: Renal ultrasound reviewed showing no evidence of hydronephrosis. proteinuria ? lots of squamous cells UA cultures showing no growth. nephrology consulted and has seen patient. Continue to hold diuretics. Continue albumin. work up in progress DVT prophylaxis: SCDs. Heparin. (4) Dyslipidemia ICD Code: E78.5 - Hyperlipidemia, unspecified Plan: Continue Lipitor. Attending Statement The exam, history, and the medical decision-making described in the above note were completed with the assistance of the mid-level provider. I reviewed and agree with the findings presented. I attest that I had a [id number] encounter with the patient on the same day, and personally performed and documented my assessment and findings in the medical record. 35 minutes of time spent in education with patient, spouse and sister. We did discuss her dietary restrictions, medication purpose and side effects. Home care for daily weights and self managing volume overload. We'll also discussed the purpose and plan for current LifeVest use and future defibrillator. Options for hospice and aggressive management were also discussed. Problem Qualifiers (1) CHF exacerbation: Qualified Codes: I50.9 - Heart failure, unspecified Priscilla Gonzales Apr 12, 2017 13:21 Margarita Cueva MD Apr 12, 2017 14:22
--- NOTE | 2017-04-12 15:13 | ECHRPT ---
Indication: CONCLUSIONS Mildly dilated left ventricle. Wall thickness is normal. The left ventricular systolic function is severely reduced with an estimated ejection fraction less than 20%. There is global left ventricular dysfunction. There are findings consistent with dilated cardiomyopathy. The left atrial size is moderately dilated. The right atrial size is moderately dilated. Moderate thickening of the mitral valve leaflets. Hsvwftoe-yj-dupgwa mitral valve regurgitation. Mitral valve mean gradient is 3 mmHg. Aortic valve sclerosis is present. There is moderate to severe tricuspid valve regurgitation. The estimated pulmonary arterial pressure is 52.8 mmHg. Mild pulmonary valve regurgitation. BP: 105 / 71 HR: Rhythm: Sinus MEASUREMENTS (Male / Female) Normal Values Technical Quality:Fair 2D ECHO LV Diastolic Diameter PLAX 5.9 cm 4.2 - 5.9 / 3.9 - 5.3 cm LV Systolic Diameter PLAX 5.6 cm IVS Diastolic Thickness 0.8 cm 0.6 - 1.0 / 0.6 - 0.9 cm LVPW Diastolic Thickness 0.8 cm 0.6 - 1.0 / 0.6 - 0.9 cm LV Relative Wall Thickness 0.3 LVOT Diameter 1.8 cm Aortic Root Diameter 3.0 cm LA Systolic Diameter LX 3.5 cm 3.0 - 4.0 / 2.7 - 3.8 cm M-MODE AV Cusp Separation MM 1.8 cm DOPPLER AV Peak Velocity 115.0 cm/s AV Peak Gradient 5.3 mmHg AV Mean Gradient 3.0 mmHg AV Velocity Time Integral 18.5 cm LVOT Peak Velocity 71.0 cm/s LVOT Peak Gradient 2.0 mmHg LVOT Velocity Time Integral 9.9 cm AV Area Cont Eq vti 1.4 cm AV Area Cont Eq pk 1.6 cm MV Peak Velocity 121.0 cm/s MV Peak Gradient 5.9 mmHg MV Mean Velocity 85.2 cm/s MV Mean Gradient 3.0 mmHg Mitral E Point Velocity 91.8 cm/s Mitral A Point Velocity 84.8 cm/s Mitral E to A Ratio 1.1 LV E' Lateral Velocity 10.4 cm/s Mitral E to LV E' Lateral Ratio 8.8 LV E' Septal Velocity 3.6 cm/s Mitral E to LV E' Septal Ratio 25.4 TR Peak Velocity 327.0 cm/s TR Peak Gradient 42.8 mmHg Right Atrial Pressure 10.0 mmHg Pulmonary Artery Systolic Pressu 52.8 mmHg Right Ventricular Systolic Press 52.8 mmHg PV Peak Velocity 43.5 cm/s PV Peak Gradient 0.8 mmHg FINDINGS LEFT VENTRICLE Mildly dilated left ventricle. Wall thickness is normal. The left ventricular systolic function is severely reduced with an estimated ejection fraction less than 20%. There is global left ventricular dysfunction. There are findings consistent with dilated cardiomyopathy. LEFT ATRIUM The left atrial size is moderately dilated. RIGHT ATRIUM The right atrial size is moderately dilated. MITRAL VALVE Moderate thickening of the mitral valve leaflets. Qupbpnlr-gw-ismwvk mitral valve regurgitation. Mitral valve mean gradient is 3 mmHg. AORTIC VALVE Aortic valve sclerosis is present. TRICUSPID VALVE There is moderate to severe tricuspid valve regurgitation. The estimated pulmonary arterial pressure is 52.8 mmHg. PULMONARY VALVE Mild pulmonary valve regurgitation. Matias Shipley MD, FACC, FSCAI Edited by: [employer] CV Shoe Shanker (Electronically Signed) Final Date:11 April 2017 14:00 Amended: 12 April 2017 15:12
[2017-04-12 16:00] VITALS: BP 110/84; PULSE 76; RESP 18; TEMP 97.2; O2SAT 97
--- NOTE | 2017-04-12 17:57 | HHI.NPPN ---
Subjective History of Present Illness 66 yeqar old with CHF EF 20%, TONIA Review of Systems General Constitutional: Fatigue Objective Data Data 04/12/17 04/13/17 19:00 07:00 Intake Total 750 ml Balance 750 ml Intake Oral 750 ml # Voids 3 Vital Signs Date Time Temp Pulse Resp B/P (MAP) Pulse Ox O2 Delivery O2 Flow Rate FiO2 04/12/17 16:00 97.2 76 18 110/84 (93) 97 04/12/17 12:00 97.0 74 18 110/75 (87) 97 04/12/17 08:00 97.1 96 18 126/85 (99) 99 04/12/17 04:00 96.6 90 20 120/77 (91) 100 04/12/17 00:00 96.6 91 20 118/78 (91) 97 04/11/17 20:00 96.8 82 20 104/77 (86) 98 -: 04/12/17 0510 04/12/17 0510 Physical Exam General Appearance: Well Developed Neck Neck Exam: Neck Supple Pulmonary Resp Exam: Clear Bilaterally Cardiology CV Exam: Regular Gastrointestinal/Abdomen GI Exam: Soft, Non-Tender Extremeties Extremities Exam: No Edema Assessment/Plan Problem List: (1) Renal failure (ARF), acute on chronic ICD Codes: N17.9 - Acute kidney failure, unspecified; N18.9 - Chronic kidney disease, unspecified Status: Acute Plan: Patient CR Declined 2.9 obtain urine Check urine sodium and creatinine I agree with holding diuretic Follow BMP follow Urine protein (2) Bronchitis ICD Codes: J40 - Bronchitis Status: Acute Plan: She she was on Levaquin (3) Asthma exacerbation ICD Codes: J45.901 - Unspecified asthma with (acute) exacerbation Status: Acute Plan: On Symbicort (4) Cardiomyopathy ICD Codes: I42.9 - Cardiomyopathy, unspecified Plan: EF of 20% (5) DMII (diabetes mellitus, type 2) ICD Codes: E11.9 - Type 2 diabetes mellitus Status: Chronic Plan: monitor blood glucose Problem Qualifiers (1) Renal failure (ARF), acute on chronic: Qualified Codes: N17.9 - Acute kidney failure, unspecified; N18.9 - Chronic kidney disease, unspecified Karen Azar MD Apr 12, 2017 17:57
[2017-04-12 20:00] VITALS: BP 107/70; PULSE 79; PULSE 80; RESP 16; TEMP 96.3; O2SAT 100
[2017-04-12] MEDS: ATORVASTATIN 10 MG TAB PO SCH (20:20)
[2017-04-12] MEDS: MONTELUKAST SODIUM 10 MG TAB PO SCH (20:22)
[2017-04-13 04:00] VITALS: BP 117/83; PULSE 82; RESP 16; TEMP 98.3; O2SAT 98
[2017-04-13] MEDS: ALBUMIN 25% INJ 100 ML IV SCH ×2 (05:06→17:25)
[2017-04-13] MEDS: guaiFENesin/DEXTROMETHORPHAN 200 MG/20 MG/10 ML CUP PO PRN (06:33)
[2017-04-13 07:02] LABS: POTASSIUM 4.2 MEQ/L (3.5-5.1)
[2017-04-13 07:05] LABS: BICARBONATE 18.4 MEQ/L (21.0-32.0)
[2017-04-13] MEDS: ONDANSETRON HCL 4 MG/2 ML VIAL IV PUSH PRN ×2 (08:14→19:56)
[2017-04-13] MEDS: METOPROLOL TARTRATE 50 MG TAB PO SCH (08:15)
[2017-04-13] MEDS: FAMOTIDINE 20 MG TAB PO SCH (08:16)
[2017-04-13] MEDS: ASPIRIN 81 MG CHEW TAB CHEW SCH (08:16)
[2017-04-13] MEDS: INSULIN ASPART SUPPLEMENTAL SCALE SQ SCH ×4 (08:17→21:00)
[2017-04-13] MEDS: HEPARIN SODIUM - SQ 10,000 UNITS/ML VIAL SQ SCH ×2 (08:17→20:55)
[2017-04-13] MEDS: SODIUM CHLORIDE 0.9% FLUSH 10 ML FLUSH IV FLUSH SCH ×2 (08:18→19:56)
[2017-04-13] MEDS: BUDESONIDE-FORMOTEROL 80/4.5 MCG INHALER INH SCH ×2 (08:19→20:55)
[2017-04-13 08:25] VITALS: BP 124/91; PULSE 86; RESP 18; TEMP 96.5; O2SAT 100
--- NOTE | 2017-04-13 10:58 | HHI.PR ---
Subjective Remarks Patient seen in follow-up for acute kidney injury and for heart failure. Better today and not short of breath. Much more active Objective Vitals Vital Signs Date Time Temp Pulse Resp B/P (MAP) Pulse Ox O2 Delivery O2 Flow Rate FiO2 04/13/17 08:25 96.5 86 18 124/91 (102) 100 04/13/17 04:00 98.3 82 16 117/83 (94) 98 04/12/17 20:00 80 04/12/17 20:00 96.3 79 16 107/70 (82) 100 04/12/17 16:00 97.2 76 18 110/84 (93) 97 04/12/17 12:00 97.0 74 18 110/75 (87) 97 I/O 04/12/17 04/12/17 04/12/17 04/13/17 04/13/17 04/13/17 07:00 15:00 23:00 07:00 15:00 23:00 Intake Total 240 ml 850 ml 480 ml 580 ml Balance 240 ml 850 ml 480 ml 580 ml Intake Oral 240 ml 750 ml 480 ml 480 ml IV Total 100 ml 100 ml # Voids 3 3 2 2 # Bowel Movements 1 0 0 Result Diagram: 04/12/17 0510 04/13/17 0526 Imaging Last Impressions Renal Ultrasound 04/11/17 0000 Signed Impressions: Service Date/Time: Tuesday, April 11, 2017 15:09 - CONCLUSION: No evidence of hydronephrosis Gustavo Bueno MD Chest X-Ray 04/11/17 0000 Signed Impressions: Service Date/Time: March 00:01 - CONCLUSION: Diffuse interstitial disease. Gustavo Zuniga MD Abdomen/Pelvis CT 04/10/17 1639 Signed Impressions: Service Date/Time: Monday, April 10, 2017 17:03 - CONCLUSION: No acute noncontrast CT findings in the abdomen or pelvis. Gustavo Bueno MD Objective Remarks GENERAL: This is a well-nourished, well-developed patient, in no apparent distress. CARDIOVASCULAR: Regular rate and rhythm , gallops, or rubs. Systolic murmurs RESPIRATORY: Clear to auscultation. Breath sounds equal bilaterally. No wheezes , rales, or rhonchi. GASTROINTESTINAL: Abdomen soft, non-tender, nondistended. Normal active bowel sounds MUSCULOSKELETAL: Extremities without clubbing, cyanosis, or edema. NEURO: Alert & Oriented x4 to person, place, time, situation. Moves all ext x4 A/P Problem List: (1) CHF exacerbation ICD Code: I50.9 - Heart failure, unspecified Status: Acute Plan: Patient on metoprolol.Cozaar held due to TONIA Status post Lasix for diuresis. On hold now due to acute on chronic kidney disease. Currently with chronic systolic and diastolic heart failure with mild exacerbation Patient's bowels have decided to make arrangements to resume a LifeVest and patient will proceed with plans for defibrillator placement Repeat echocardiogram remains unchanged and patient unable to tolerate DNENIS inhibitor and ARB due to renal changes (2) Abnormal TSH ICD Code: R94.6 - Abnormal results of thyroid function studies Plan: Patient continue beta liliana Subclinical hyperthyroidism (suppressed TSH with normal T4/T3 and without clinical symptoms of hyperthyroidism) Recheck TSH, T4 which are normal. (3) Acute renal failure superimposed on stage 2 chronic kidney disease ICD Code: N17.9 - Acute kidney failure, unspecified; N18.2 - Chronic kidney disease, stage 2 (mild) Plan: Renal ultrasound reviewed showing no evidence of hydronephrosis. Significant proteinuria UA cultures showing no growth. nephrology consulted appreciated. Continue to hold diuretics and Dennis inhibitor/ ARB. Continue albumin. work up in progress (4) Dyslipidemia ICD Code: E78.5 - Hyperlipidemia, unspecified Plan: Continue Lipitor. Assessment and Plan DVT prophylaxis: SCDs. Heparin. Problem Qualifiers (1) CHF exacerbation: Qualified Codes: I50.9 - Heart failure, unspecified Margarita Cueva MD Apr 13, 2017 10:58
[2017-04-13] MEDS: PANTOPRAZOLE SOD 20 MG DELAYED RELEASE TAB PO SCH (11:36)
[2017-04-13] MEDS: RESP: ALBUTEROL CONC 2.5 MG/0.5 ML NEB NEB PRN ×2 (11:57→19:57)
--- NOTE | 2017-04-13 12:38 | HHI.NPPN ---
Subjective History of Present Illness 66 yeqar old with CHF EF 20%, TONIA Review of Systems General Constitutional: Fatigue Objective Data Data Vital Signs Date Time Temp Pulse Resp B/P (MAP) Pulse Ox O2 Delivery O2 Flow Rate FiO2 04/13/17 08:25 96.5 86 18 124/91 (102) 100 04/13/17 04:00 98.3 82 16 117/83 (94) 98 04/12/17 20:00 80 04/12/17 20:00 96.3 79 16 107/70 (82) 100 04/12/17 16:00 97.2 76 18 110/84 (93) 97 -: 04/12/17 0510 04/13/17 0526 Physical Exam General Appearance: Well Developed Neck Neck Exam: Neck Supple Pulmonary Resp Exam: Clear Bilaterally Cardiology CV Exam: Regular Gastrointestinal/Abdomen GI Exam: Soft, Non-Tender Extremeties Extremities Exam: No Edema Assessment/Plan Problem List: (1) Renal failure (ARF), acute on chronic ICD Codes: N17.9 - Acute kidney failure, unspecified; N18.9 - Chronic kidney disease, unspecified Status: Acute Plan: Patient CR Declined 2.6 resume diuretics give Lasix 40 mg IV today stop Albumin by tomorrow Pre renal U Na less then 5 likely Cardiorenal syndrome urine protein /cr ratio not impressive Follow BMP will follow PRN bases (2) Bronchitis ICD Codes: J40 - Bronchitis Status: Acute Plan: She she was on Levaquin (3) Asthma exacerbation ICD Codes: J45.901 - Unspecified asthma with (acute) exacerbation Status: Acute Plan: On Symbicort (4) Cardiomyopathy ICD Codes: I42.9 - Cardiomyopathy, unspecified Plan: EF of 20% (5) DMII (diabetes mellitus, type 2) ICD Codes: E11.9 - Type 2 diabetes mellitus Status: Chronic Plan: monitor blood glucose Problem Qualifiers (1) Renal failure (ARF), acute on chronic: Qualified Codes: N17.9 - Acute kidney failure, unspecified; N18.9 - Chronic kidney disease, unspecified Karen Azar MD Apr 13, 2017 12:37
[2017-04-13] MEDS ORDERED: FUROSEMIDE 40 MG/4 ML VIAL IV PUSH ONE (13:00)
[2017-04-13 14:18] VITALS: BP 108/78; PULSE 76; RESP 17; TEMP 97.6; O2SAT 100
[2017-04-13 17:56] VITALS: BP 116/74; PULSE 77; RESP 16; TEMP 97.2; O2SAT 100
[2017-04-13 20:00] VITALS: BP 131/79; PULSE 80; RESP 16; TEMP 97.9; O2SAT 99
[2017-04-13] MEDS: MONTELUKAST SODIUM 10 MG TAB PO SCH (20:55)
[2017-04-13] MEDS: ATORVASTATIN 10 MG TAB PO SCH (20:55)
[2017-04-14] VITALS: BP 128/85; PULSE 77; RESP 18; TEMP 97.7; O2SAT 98
[2017-04-14] MEDS: ALBUMIN 25% INJ 100 ML IV SCH (05:54)
[2017-04-14 08:00] VITALS: BP 119/81; PULSE 82; RESP 16; TEMP 99.2; O2SAT 98
[2017-04-14] MEDS: INSULIN ASPART SUPPLEMENTAL SCALE SQ SCH ×3 (08:00→16:54)
[2017-04-14] MEDS: PANTOPRAZOLE SOD 20 MG DELAYED RELEASE TAB PO SCH (08:12)
[2017-04-14] MEDS: BUDESONIDE-FORMOTEROL 80/4.5 MCG INHALER INH SCH (08:12)
[2017-04-14] MEDS: ASPIRIN 81 MG CHEW TAB CHEW SCH (08:12)
[2017-04-14] MEDS: METOPROLOL TARTRATE 50 MG TAB PO SCH (08:12)
[2017-04-14] MEDS: SODIUM CHLORIDE 0.9% FLUSH 10 ML FLUSH IV FLUSH SCH (08:14)
[2017-04-14] MEDS: HEPARIN SODIUM - SQ 10,000 UNITS/ML VIAL SQ SCH (08:14)
[2017-04-14] MEDS: RESP: ALBUTEROL CONC 2.5 MG/0.5 ML NEB NEB PRN (09:56)
[2017-04-14] MEDS ORDERED: PROMETHAZINE HCL 25 MG TAB PO ONE (11:00)
[2017-04-14] MEDS ORDERED: DEFIB EXTERNAL (11:00)
[2017-04-14 12:00] VITALS: BP 114/78; PULSE 70; RESP 16; TEMP 95.7; O2SAT 100
[2017-04-14] MEDS ORDERED: PROM25TA10 PO (12:23)
[2017-04-14] MEDS ORDERED: PANT20 PO (12:23)
--- NOTE | 2017-04-14 12:24 | HHI.DCPOC ---
Discharge Care Plan Diagnosis: (1) Hepatorenal syndrome (2) Cardiomyopathy (3) DMII (diabetes mellitus, type 2) (4) Asthma exacerbation Goals to Promote Your Health * To prevent worsening of your condition and complications * To maintain your health at the optimal level Directions to Meet Your Goals Take your medications as prescribed Follow your dietary instruction Follow activity as directed Keep your appointments as scheduled Take your immunizations and boosters as scheduled If your symptoms worsen call your PCP, if no PCP go to Urgent Care Center or Emergency Room Smoking is Dangerous to Your Health. Avoid second hand smoke Call the 24-hour hour crisis hotline for domestic abuse at Margarita Cueva MD Apr 14, 2017 12:24
--- NOTE | 2017-04-14 12:35 | HHI.DS ---
Discharge Summary Admission Date Apr 10, 2017 at 18:30 Discharge Date: Apr 14, 2017 Admitting Diagnosis CHF exacerbation, renal failure (1) CHF exacerbation ICD Code: I50.9 - Heart failure, unspecified Status: Acute (2) Abnormal TSH ICD Code: R94.6 - Abnormal results of thyroid function studies (3) Acute renal failure superimposed on stage 2 chronic kidney disease ICD Code: N17.9 - Acute kidney failure, unspecified; N18.2 - Chronic kidney disease, stage 2 (mild) (4) Dyslipidemia ICD Code: E78.5 - Hyperlipidemia, unspecified Procedures none Brief History - From Admission This patient is a 66-year-old female with known severe cardiomyopathy. She comes in with 2-3 days of increased work of breathing, distal exertion, lower extremity edema. Her EF is less than 20% and a previous hospitalization patient has been recommended for defibrillator evaluation. She was given a LifeVest. She has not been wearing a LifeVest for the last month due to cost issues. She reports that she saw her upsetter helper to change her medications around. She also has a history of elevated TSH with a normal T4/T3. Patient had been in follow-up with her primary care physician for this however she reports her primary doctor "did nothing " For her thyroid. She has not had any fevers or chills. She has home and mostly sedentary. She reports no chest pain. She follows up with her upsetter helper, Dr. Smart. She has been admitted to the hospital for further evaluation of congestive heart failure. She has elevated BNP, signs and symptoms of congestion and evidence of passive congestion of the liver. She is felt better with IV Lasix. She is also to have acute kidney injury. She notes no hematuria or dysuria CBC/BMP: 04/12/17 0510 04/13/17 0526 Significant Findings Laboratory Tests Test 04/12/17 05:10 04/12/17 18:35 04/13/17 05:26 Red Blood Count 3.51 MIL/MM3 (4.00-5.30) Hemoglobin 10.4 GM/DL (11.6-15.3) Hematocrit 32.7 % (35.0-46.0) Mean Corpuscular Hemoglobin Concent 31.8 % (32.0-36.0) Monocytes (%) (Auto) 11.2 % (0.0-8.0) Blood Urea Nitrogen 71 MG/DL (7-18) 71 MG/DL (7-18) Creatinine 2.90 MG/DL (0.50-1.00) 2.60 MG/DL (0.50-1.00) Random Glucose 156 MG/DL (74-106) 123 MG/DL (74-106) Albumin 3.2 GM/DL (3.4-5.0) Alkaline Phosphatase 418 U/L (45-117) Aspartate Amino Transf (AST/SGOT) 489 U/L (15-37) Alanine Aminotransferase (ALT/SGPT) 518 U/L (10-53) Total Bilirubin 2.2 MG/DL (0.2-1.0) Carbon Dioxide Level 19.3 MEQ/L (21.0-32.0) 18.4 MEQ/L (21.0-32.0) Estimat Glomerular Filtration Rate 20 ML/MIN (>89) 22 ML/MIN (>89) Urine Random Total Protein 149 MG/DL (0-11.8) Urine Protein/Creatinine Ratio 0.72 (0.00-0.14) Imaging Last Impressions Renal Ultrasound 04/11/17 0000 Signed Impressions: Service Date/Time: Tuesday, April 11, 2017 15:09 - CONCLUSION: No evidence of hydronephrosis Gustavo Bueno MD Chest X-Ray 04/11/17 0000 Signed Impressions: Service Date/Time: March 00:01 - CONCLUSION: Diffuse interstitial disease. Gustavo Zuniga MD Abdomen/Pelvis CT 04/10/17 1639 Signed Impressions: Service Date/Time: Monday, April 10, 2017 17:03 - CONCLUSION: No acute noncontrast CT findings in the abdomen or pelvis. Gustavo Bueno MD PE at Discharge GENERAL: This is a well-nourished, well-developed patient, in no apparent distress. CARDIOVASCULAR: Regular rate and rhythm , gallops, or rubs. Systolic murmurs RESPIRATORY: Clear to auscultation. Breath sounds equal bilaterally. No wheezes , rales, or rhonchi. GASTROINTESTINAL: Abdomen soft, non-tender, nondistended. Normal active bowel sounds MUSCULOSKELETAL: Extremities without clubbing, cyanosis, or edema. NEURO: Alert & Oriented x4 to person, place, time, situation. Moves all ext x4 Pt update on day of discharge Recent seen today in follow-up for hepatorenal syndrome and for her cardiomyopathy and diabetes. She was complaining of some nausea which improved with Phenergan. Hospital Course Patient is a 66-year-old female was admitted with signs and symptoms of acute kidney injury and congestive heart failure. She was treated for acute exacerbation of chronic diastolic and systolic heart failure. Patient also was seen by nephrology for development of hepatorenal syndrome. Patient also has subclinical hyperthyroidism and has dm2. Her renal function improved and the patient's blood pressure remained stable. Her diuresis who was modified and she had less edema than when she came in the hospital and reported improvement in breathing. She did have some issues with obtaining her LifeVest affordability. We did contact a LifeVest provider as well as have conversations with the family to improve adherence. Patient has aggressive goals for treatment and will like to pursue options for defibrillator placement due to her cardiology team (Dr. Smart). Pt Condition on Discharge: Fair Discharge Disposition: Discharge Home Discharge Time: > 30 minutes Discharge Instructions DIET: Follow Instructions for: Diabetic Diet Activities you can perform: Regular-No Restrictions Follow up Referrals: Cardiology - 3 Weeks with tiffani New Medications: Defibrillator Jacket (Defibrillator Jacket) 1 Ea Device EA EXTERNAL ONCE, #1 Energy = 150 Joules; VT Threshold = 150 BPM; VF Threshold = 200 BPM Use up to 90 days only Promethazine (Phenergan) 25 Mg Tablet 25 MG PO Q6H PRN for NAUSEA OR VOMITING, #60 TAB 0 Refills Pantoprazole (Protonix) 20 Mg Tab 20 MG PO DAILY for stomach, #30 TAB Continued Medications: Albuterol Neb (Albuterol Neb) 2.5 Mg/0.5 Ml Neb 2.5 MG NEB Q4HR NEB PRN for SHORTNESS OF BREATH, EA Note: The Albuterol Sulfate Inhalation Solution is concentrated and must be diluted. Read complete instructions carefully before using. Aspirin (Aspirin) 81 Mg Chew 81 MG CHEW DAILY, TAB 0 Refills Atorvastatin (Atorvastatin) 10 Mg Tab 10 MG PO HS for Cholesterol Management, #30 TAB 0 Refills Budesonide-Formoterol Inh (Symbicort Inh) 80-4.5 Mcg/Act Aero 2 PUFF INH Q12HR for Asthma Management, #1 INHALER 0 Refills Fluticasone Nasal [place] (Flonase Nasal [place]) 50 Mcg/Act [place] 50 MCG EACH NARE BID PRN for ALLERGIES, #1 BOTTLE 0 Refills Furosemide (Furosemide) 20 Mg Tab 10 MG PO EVERY OTHER DAY, #60 TAB 0 Refills Guaifenesin-Codeine Liq (Guaifenesin AC Liq) 100-10 Mg/5 Ml Syrp 10 ML PO Q6H PRN for COUGH, #1 BOTTLE 0 Refills Losartan (Losartan) 50 Mg Tab 50 MG PO DAILY for Blood Pressure Management, #30 TAB 0 Refills Metformin (Metformin) 500 Mg Tab 500 MG PO BIDPC for Blood Sugar Management, #60 TAB 0 Refills With meals Metoprolol Tartrate (Metoprolol Tartrate) 50 Mg Tab 50 MG PO DAILY, #60 TAB 0 Refills Montelukast (Montelukast) 10 Mg Tab 10 MG PO HS, #30 TAB 0 Refills Margarita Cueva MD Apr 14, 2017 12:35
[2017-04-14] MEDS: BENZONATATE 100 MG CAP PO PRN (14:43)
--- NOTE | 2017-04-14 15:03 | HHI.NPPN ---
Subjective History of Present Illness 66 yeqar old with CHF EF 20%, TONIA Additional Remarks Patient is alert, not in distress. Review of Systems General Constitutional: Fatigue Objective Data Data 04/14/17 04/15/17 18:59 06:59 Intake Total 100 ml Balance 100 ml IV Total 100 ml Vital Signs Date Time Temp Pulse Resp B/P (MAP) Pulse Ox O2 Delivery O2 Flow Rate FiO2 04/14/17 12:00 95.7 70 16 114/78 (90) 100 04/14/17 08:00 99.2 82 16 119/81 (94) 98 04/14/17 00:00 97.7 77 18 128/85 (99) 98 04/13/17 20:00 97.9 80 16 131/79 (96) 99 04/13/17 17:56 97.2 77 16 116/74 (88) 100 -: 04/12/17 0510 04/13/17 0526 Physical Exam General Appearance: No Acute Distress, Comfortable Neck Neck Exam: Neck Supple Pulmonary Resp Exam: Clear Bilaterally Cardiology CV Exam: Regular Gastrointestinal/Abdomen GI Exam: Soft, Non-Tender Extremeties Extremities Exam: No Edema Neurologic Neuro Exam: Alert, Awake Assessment/Plan Problem List: (1) Renal failure (ARF), acute on chronic ICD Codes: N17.9 - Acute kidney failure, unspecified; N18.9 - Chronic kidney disease, unspecified Status: Acute Plan: Patient CR Declined 2.6 on 04/13. resume diuretics give Lasix 40 mg IV today Albumin is stopped. Pre renal U Na less then 5 likely Cardiorenal syndrome urine protein /cr ratio not impressive No new BMP done. Follow the urine out put and BMP. (2) Bronchitis ICD Codes: J40 - Bronchitis Status: Acute Plan: She she was on Levaquin (3) Asthma exacerbation ICD Codes: J45.901 - Unspecified asthma with (acute) exacerbation Status: Acute Plan: On Symbicort (4) Cardiomyopathy ICD Codes: I42.9 - Cardiomyopathy, unspecified Plan: EF of 20% (5) DMII (diabetes mellitus, type 2) ICD Codes: E11.9 - Type 2 diabetes mellitus Status: Chronic Plan: monitor blood glucose Problem Qualifiers (1) Renal failure (ARF), acute on chronic: Qualified Codes: N17.9 - Acute kidney failure, unspecified; N18.9 - Chronic kidney disease, unspecified Darcie Galarza MD Apr 14, 2017 15:03
[2017-04-14 16:00] VITALS: BP 107/80; PULSE 80; RESP 16; TEMP 96.1; O2SAT 99
[2017-04-14] MEDS ORDERED: guaiFENesin SOLUTION 200 MG/10 ML CUP PO PRN (17:15)
== END 2017-04-14 19:33 | disposition home or self-care (01) | DRG 291 ==
LOC: PHED 14:06 → PHEDA 18:30 → PH3B 20:02
PROVIDERS: ADMIT Hospitalist; ATTEND Hospitalist
DX: I13.0 Hypertensive heart and chronic kidney disease with heart failure and stage 1 through stage 4 chronic kidney disease, or unspecified chronic kidney disease (principal); I50.43 Acute on chronic combined systolic (congestive) and diastolic (congestive) heart failure; N17.9 Acute kidney failure, unspecified; E11.22 Type 2 diabetes mellitus with diabetic chronic kidney disease; J45.901 Unspecified asthma with (acute) exacerbation; I42.9 Cardiomyopathy, unspecified; K21.9 Gastro-esophageal reflux disease without esophagitis; N18.2 Chronic kidney disease, stage 2 (mild); E05.90 Thyrotoxicosis, unspecified without thyrotoxic crisis or storm; J40 Bronchitis, not specified as acute or chronic; E78.5 Hyperlipidemia, unspecified; Z79.82 Long term (current) use of aspirin; Z23 Encounter for immunization; Z79.84 Long term (current) use of oral hypoglycemic drugs
CPT/HCPCS: 71010; 74176; 76775; 80048; 80053; 81001; 82570; 82948; 83690; 83735; 83880; 83935; 84156; 84300; 84439; 84443; 85025; 87086; 90471; 90732; 93306; 94640; 94664; C9113; G0009; J1200; J1644; J1815; J1940; J1956; J2405; J7030; J7611; P9047; Q0169